=== PATIENT | male | born 1950 | race Caucasian/White ===

== ENCOUNTER 2017-04-30 18:04 | Emergency (ER) | payer BC ==
[2017-04-30 18:14] VITALS: RESP 16; TEMP 98.3
--- NOTE | 2017-04-30 19:35 | ED ---
General Adult HPI - General Chief complaint: Head Injury Stated complaint: HEAD INJURY Time Seen by Provider: 04/30/17 18:59 Source: patient, RN notes reviewed Mode of arrival: wheelchair Limitations: no limitations - History of Present Illness Initial comments: This is a 66-year-old male who presents to the emergency department with chief complaint of head injury. Patient states that prior to arrival he slipped and fell over a curb in a parking lot. He reports it happened so quickly that he is unsure if he hit his head on his car bumper or the cement ground. He denies any loss of consciousness or headache. Denies disorientation or difficulty concentrating. He denies any episodes of vomiting. He does state that he also sustained an abrasion to his right knee as well as his left ear. Denies fever, chills, chest pain, shortness of breath, abdominal pain, nausea or vomiting, constipation or diarrhea, dysuria or hematuria, numbness or tingling, headache or vision changes. - Related Data Home Medications Medication Instructions Recorded Confirmed Aspirin 325 mg PO DAILY 04/07/15 04/30/17 Atorvastatin [Lipitor] 80 mg PO DAILY 04/07/15 04/30/17 Multivitamins, Thera [Multivitamin 1 tab PO DAILY 04/07/15 04/30/17 (formulary)] Omeprazole [PriLOSEC] 10 mg PO DAILY 04/07/15 04/30/17 amLODIPine [Norvasc] 10 mg PO DAILY 04/07/15 04/30/17 glyBURIDE [Diabeta] 5 mg PO AC-BID 04/07/15 04/30/17 Ezetimibe [Zetia] 10 mg PO DAILY 04/30/17 04/30/17 Fenofibrate [Lofibra] 160 mg PO DAILY 04/30/17 04/30/17 metFORMIN HCL 1,000 mg PO BID 04/30/17 04/30/17 Previous Rx's Medication Instructions Recorded Carvedilol [Coreg] 6.25 mg PO BID-W/MEALS #60 tab 04/11/15 Enalapril [Vasotec] 20 mg PO BID #60 tab 04/11/15 Allergies Allergy/AdvReac Type Severity Reaction Status Date / Time losartan potassium Allergy Dyspnea Verified 04/30/17 19:19 [From Jeovanny] Review of Systems ROS Statement: Those systems with pertinent positive or pertinent negative responses have been documented in the HPI. ROS Other: All systems not noted in ROS Statement are negative. Past Medical History Past Medical History: Diabetes Mellitus, GERD/Reflux, Hyperlipidemia, Hypertension, Myocardial Infarction (CA) Last Myocardial Infarction Date:: 2009 History of Any Multi-Drug Resistant Organisms: None Reported Past Surgical History: Coronary Bypass/CABG, Orthopedic Surgery Additional Past Surgical History / Comment(s): 3 VESSEL BYPASS SX 2003, LEFT SHOULDER REPAIR, RIGHT SHOULDER ROTATOR CUFF REPAIR X2 2009, LEFT KNEE CARTILAGE REPAIR 1966, GANGLIAN CYST REMOVED FROM RIGHT WRIST 1994, RIGHT ACHILLES TENDON REPAIR 2006, CLOSED HEAD INJURY ([facility]) WORK RELATED INJURY 1985, Past Anesthesia/Blood Transfusion Reactions: No Reported Reaction Past Psychological History: No Psychological Hx Reported Smoking Status: Never smoker Past Alcohol Use History: Occasional Past Drug Use History: None Reported General Exam - General Exam Comments Initial Comments: General: Awake and alert, well-developed; in no apparent distress. HEENT: Head normocephalic. There is localized swelling over right eyebrow with overlying abrasion. Pupils are equal, round and reactive to light. Extraocular movements intact. Oropharynx moist without erythema or exudate. Neck: Supple. Normal ROM. Cardiovascular: Regular rate and rhythm. No murmurs, rubs or gallops. Chest symmetrical. Respiratory: Lungs clear to auscultation bilaterally. No wheezes, rales or rhonchi. Normal respiratory effort with no use of accessory muscles. Musculoskeletal: Strength 5/5 bilateral upper and lower extremities. Sensation is intact. Pulses 2+ equal and palpable bilaterally. Skin: [place], warm and dry without rashes. Small abrasion right medial forehead superior to eyebrow. Small abrasion on the left ear. Small abrasion on right knee. No active bleeding noted. Neurological: Alert and oriented x3. CN II-XII grossly intact. Speech is fluent and answers are appropriate. No focal neuro deficits. Psychiatric: Normal mood and affect. No overt signs of depression or anxiety noted. Limitations: no limitations Course Vital Signs 04/30/17 18:12 Temperature 98.3 F Pulse Rate 60 Respiratory 16 Rate Blood Pressure 176/79 O2 Sat by Pulse 97 Oximetry Medical Decision Making - Medical Decision Making This is a 66-year-old male who presents to the emergency department with chief complaint of head injury. Patient denies any loss of consciousness or disorientation. He denies headache or episodes of vomiting. Patient sustained a contusion to right medial forehead. On physical examination he is neurovascularly intact. Patient will be discharged home with recommendation to follow-up with his primary care provider within 1-2 days. He is recommended to apply ice to forehead and use Motrin as needed for inflammation and pain. He is in agreement to the plan and voices understanding. All questions were answered. Disposition Clinical Impression: Forehead contusion Disposition: HOME SELF-CARE Condition: Good Instructions: Facial Contusion (ED), Concussion (ED) Additional Instructions: Please follow up with primary care provider within 1-2 days. Return to emergency department if symptoms should worsen or any concerns arise. Referrals: Anamika Cox MD [Primary Care Provider] - 1-2 days Time of Disposition: 19:35
[2017-04-30 19:53] VITALS: BP 170/70; PULSE 59
== END 2017-04-30 19:53 | disposition home or self-care (01) ==
LOC: EC 18:04
DX: S00.83XA Contusion of other part of head, initial encounter (principal); S00.412A Abrasion of left ear, initial encounter; S80.211A Abrasion, right knee, initial encounter; E78.5 Hyperlipidemia, unspecified; I10 Essential (primary) hypertension; E11.9 Type 2 diabetes mellitus without complications; K21.9 Gastro-esophageal reflux disease without esophagitis; I25.2 Old myocardial infarction; Z79.82 Long term (current) use of aspirin; Z79.84 Long term (current) use of oral hypoglycemic drugs; Z79.899 Other long term (current) drug therapy; Z88.8 Allergy status to other drugs, medicaments and biological substances; W18.09XA Striking against other object with subsequent fall, initial encounter; Y92.481 Parking lot as the place of occurrence of the external cause
CPT/HCPCS: 99283

== ENCOUNTER → 2017-07-31 | Outpatient (CLI) | payer BC | END | disposition home or self-care (01) | LOC: LABWHC1 11:08 | PROVIDERS: ATTEND Internal Medicine Cardiovascular Disease | DX: I25.10 Atherosclerotic heart disease of native coronary artery without angina pectoris (principal) | CPT/HCPCS: 36415; 83704 ==

== ENCOUNTER → 2017-12-03 | Outpatient (CLI) | payer BC ==
[2017-12-03 11:09] LABS: ALT 38 U/L (21-72); AST 31 U/L (17-59)
== END | disposition home or self-care (01) ==
LOC: LABWHC1 10:28
PROVIDERS: ATTEND Internal Medicine Cardiovascular Disease
DX: I10 Essential (primary) hypertension (principal)
CPT/HCPCS: 36415; 83704; 84450; 84460

== ENCOUNTER 2018-03-06 07:32 | Day surgery (SDC) | payer MEDICARE, OTHER ==
[2018-03-02 16:11] VITALS: BMI 39.3
[~2018-03-06 07:32] MED LIST: MOXIFLOXACIN HCL 0.5% DROPS 3 ML BTL OP NR; TETRACAINE 0.5% OPHTH (PF) DROPS 4 ML BTL OP NR; TIMOLOL 0.5% OPHTH DROPS 5 ML BTL OP NR; TOBRA-DEXAMET 0.3-0.1% OPHTH DROPS 2.5 ML BTL OPHTHALMIC NR
[2018-03-06 09:09] VITALS: RESP 18; TEMP 97.6
[2018-03-06] MEDS: LACTATED RINGERS 1,000 ML IV SCH ×2 (09:19→09:31)
[2018-03-06] MEDS: PILOCARPINE 2% OPHTH DROPS 15 ML BTL OP NR ×2 (09:21→09:30)
[2018-03-06 09:22] LABS: Glucose,Whole Blood 194 mg/dL (75-99)
[2018-03-06] MEDS ORDERED: CHONDROITIN-SOD HYALURONATE 1 EACH SYRINGE (0.75 ML) INTRAOCULA ONE (09:30)
[2018-03-06] MEDS ORDERED: fentaNYL (PF) 50 MCG/ML 2 ML AMP ONE (09:33)
[2018-03-06] MEDS ORDERED: MIDAZOLAM 2 MG/2 ML VIAL ONE (09:33)
[2018-03-06] MEDS ORDERED: LIDOCAINE 1% INJ 10MG/ML (10 ML MDV) SQ ONE (09:53)
--- NOTE | 2018-03-06 10:00 | P.OP ---
Date of Procedure: 03/06/18 Preoperative Diagnosis: POAG Postoperative Diagnosis: same Procedure(s) Performed: goniotomy Implants: none Anesthesia: MAC Surgeon: Rubin Cardona Estimated Blood Loss (ml): 1 Pathology: none sent Condition: stable Disposition: same day Indications for Procedure: glaucoma Operative Findings: no complication
[2018-03-06 10:24] VITALS: BP 149/84; PULSE 50
--- NOTE | 2018-03-06 13:40 | OP ---
OPERATIVE REPORT DATE OF SURGERY: 06 March 2018. PROCEDURE PERFORMED: Goniotomy of the left eye. PREOPERATIVE DIAGNOSIS: Primary open-angle glaucoma, severe stage, left eye. POSTOPERATIVE DIAGNOSIS: Primary open-angle glaucoma, severe stage, left eye. SURGEON: Dr. Rubin Cardona. ANESTHESIA: Topical. ESTIMATED BLOOD LOSS: Less than 5 mL. SPECIMEN: Taken none. NARRATIVE: After completing the appropriate consent, the patient was brought to the operating room. There he was placed under cardiac monitoring, prepped and draped in the usual sterile manner. He was approached from his left temporal side and at the 3 o'clock position, a 2.5 mm keratome was used to create a self-sealing corneal flap incision. Through this opening 1% Xylocaine MPF 50 50 mix with balanced salt solution was injected into the anterior chamber. This was followed by stabilization of the anterior chamber with Viscoat. The patient was then asked to rotate his head approximately 45 degrees to his right and maintain his gaze in that general direction. A small amount of Viscoat was also placed on the patient's cornea and a gonio prism was used to examine the nasal angle of the eye. The trabecular meshwork was easily identified and a [employer] goniotomy knife was advanced across the anterior chamber and directed into the trabecular meshwork on the nasal side. The knife was then advanced in a counter- clockwise fashion for approximately 5 hours undermining and removing the trabecular meshwork in this area. A mild amount of bleeding was encountered as expected. The goniotomy knife was removed and irrigation/aspiration of the remaining viscoelastic was accomplished without difficulty. The eye was brought to normal intraocular pressure through the temporal incision and the incision was confirmed watertight. He then received 2 drops of 0.5% timolol followed by 2 drops of moxifloxacin as well as 2 drops 2% pilocarpine. He was then lightly patched and shielded in the usual manner. There were no complications from the procedure. He tolerated procedure well and was returned to outpatient recovery in good condition. MMODL / IJN: [id number] /
== END 2018-03-06 11:00 | disposition home or self-care (01) ==
LOC: OR 07:32
PROVIDERS: ATTEND Ophthalmology
DX: E11.39 Type 2 diabetes mellitus with other diabetic ophthalmic complication (principal); H40.1133 Primary open-angle glaucoma, bilateral, severe stage; H42 Glaucoma in diseases classified elsewhere; H02.051 Trichiasis without entropion right upper eyelid; H47.099 Other disorders of optic nerve, not elsewhere classified, unspecified eye; H52.223 Regular astigmatism, bilateral; I25.2 Old myocardial infarction; I10 Essential (primary) hypertension; E78.5 Hyperlipidemia, unspecified; I48.91 Unspecified atrial fibrillation; Z95.1 Presence of aortocoronary bypass graft; Z79.82 Long term (current) use of aspirin; Z79.01 Long term (current) use of anticoagulants; Z79.899 Other long term (current) drug therapy; Z95.810 Presence of automatic (implantable) cardiac defibrillator; Z79.84 Long term (current) use of oral hypoglycemic drugs; Z83.3 Family history of diabetes mellitus; Z82.49 Family history of ischemic heart disease and other diseases of the circulatory system; Z83.511 Family history of glaucoma; Z87.891 Personal history of nicotine dependence; Z97.3 Presence of spectacles and contact lenses; Z96.1 Presence of intraocular lens; Z88.8 Allergy status to other drugs, medicaments and biological substances; Z98.42 Cataract extraction status, left eye; Z98.41 Cataract extraction status, right eye
CPT/HCPCS: 65820; J2250; J3010; J2001

== ENCOUNTER → 2018-04-08 | Outpatient (CLI) | payer MEDICARE, OTHER ==
[2018-04-08 10:18] LABS: Potassium 5.2 mmol/L (3.5-5.1)
[2018-04-08 10:25] LABS: HCT 42.7 % (39.0-53.0); MCHC 32.7 g/dL (31.0-37.0); MCV 91.9 fL (80.0-100.0); Platelet Count 352 k/uL (150-450); RBC 4.65 m/uL (4.30-5.90); RDW 12.7 % (11.5-15.5)
== END ==
LOC: LABPAT 09:05
PROVIDERS: ATTEND Internal Medicine Clinical Cardiac Electrophysiology
DX: Z01.812 Encounter for preprocedural laboratory examination (principal); I48.3 Typical atrial flutter; I25.10 Atherosclerotic heart disease of native coronary artery without angina pectoris
CPT/HCPCS: 36415; 80051; 82565; 82947; 84520; 85027

== ENCOUNTER 2018-04-20 06:17 | Day surgery (SDC) | payer MEDICARE, OTHER ==
[2018-04-14 13:54] VITALS: BMI 34.8
[2018-04-20 06:53] LABS: Glucose,Whole Blood 154 mg/dL (75-99)
[2018-04-20] MEDS ORDERED: ePHEDrine SULFATE/0.9% NACL/PF 50 MG/5 ML SYRINGE IV ONE (07:52)
[2018-04-20] MEDS ORDERED: PROPOFOL 10 MG/ML 20 ML VIAL IV ONE (07:52)
[2018-04-20] MEDS ORDERED: IV FLUID CONTINUATION 1,000 ML IV ONE (07:52)
[2018-04-20] MEDS ORDERED: MIDAZOLAM 2 MG/2 ML VIAL ONE (07:52)
[2018-04-20] MEDS ORDERED: fentaNYL (PF) 50 MCG/ML 2 ML AMP ONE (07:52)
[2018-04-20] MEDS ORDERED: ROCURONIUM BROMIDE 10 MG/ML 10 ML VIAL IV ONE (07:52)
[2018-04-20] MEDS ORDERED: ISOPROTERENOL 250 MCG/1.25 ML SYR IV ONE (07:52)
[2018-04-20] MEDS ORDERED: SUCCINYLCHOLINE CHLORIDE VIAL 200 MG/10 ML VIAL IV ONE (07:52)
[2018-04-20] MEDS ORDERED: ceFAZolin IN SWFI 2 GM/20 ML SYRINGE IVP STA (07:59)
[2018-04-20] MEDS ORDERED: LIDOCAINE 1% INJ 10MG/ML (20 ML MDV) ONE (08:13)
[2018-04-20] MEDS ORDERED: LIDOCAINE 1% INJ 10MG/ML (20 ML MDV) SQ ONE (08:51)
[2018-04-20] MEDS ORDERED: HEPARIN SODIUM (1,000 UNIT/ML) 1,000 UNIT in SODIUM CHLORIDE 0.9% 1,000 ML IRRIGATION ONE (09:00)
[2018-04-20] MEDS: LACTATED RINGERS 1,000 ML IV SCH (12:34)
[2018-04-20] MEDS: SODIUM CHLORIDE 0.9% 1,000 ML IV SCH (12:35)
[2018-04-20] MEDS ORDERED: ACETAMINOPHEN TAB 325 MG TAB PO PRN (13:10)
[2018-04-20] MEDS ORDERED: ACETAMINOPHEN IV (For NPO) 1,000 MG in EMPTY BAG 1 BAG IVPB ONE (13:10)
[2018-04-20] MEDS ORDERED: HYDROcodone/APAP 5-325MG 1 EACH TAB PO PRN (13:10)
[2018-04-20 13:29] LABS: Glucose,Whole Blood 171 mg/dL (75-99)
[2018-04-20 16:21] LABS: Glucose,Whole Blood 130 mg/dL (75-99)
[2018-04-20] MEDS: metFORMIN 500 MG TAB PO SCH (17:34)
[2018-04-20] MEDS: glipiZIDE 10 MG TAB PO SCH (17:37)
[2018-04-20] MEDS: CARVEDILOL 12.5 MG TAB PO SCH (17:37)
[2018-04-20] MEDS: APIXABAN 5 MG TAB PO SCH (17:37)
[2018-04-20] MEDS: DORZOLAMIDE HCL 2% DROPS 10 ML BTL BOTH EYES SCH ×2 (17:38→20:44)
[2018-04-20 20:38] LABS: Glucose,Whole Blood 211 mg/dL (75-99)
[2018-04-20] MEDS: LISINOPRIL 20 MG TAB PO SCH (20:46)
[2018-04-20] MEDS ORDERED: LATANOPROST 0.005% OPHTH DROPS 2.5 ML BTL BOTH EYES SCH (21:00)
--- NOTE | 2018-04-20 21:16 | PCN ---
PROCEDURE NOTE Mr. Stark is a 67-year-old male patient with sustained atrial tachycardia consistent with atrial flutter. He was brought in for atrial flutter mapping ablation and EP study. The patient is brought to the EP lab in a fasting state. Written informed consent was obtained prior to the procedure. His dual-chamber pacemaker was interrogated. The lead impedances were between 450 and 550 prior to the start of the procedure. The device was reprogrammed and rate responsiveness was turned off and the AV delay was increased to 300 milliseconds. At the end of the procedure, rate responsiveness was turned back on. The impedance was rechecked and found to be stable in the mid 400s. Cinefluoroscopy of the leads before and after the procedure showed stable lead positions. IV antibiotics were administered and venous sheaths were placed in the right and left femoral veins. Via these, diagnostic catheters in the high right atrium, coronary sinus, RV, HIS bundle and right atrium and the isthmus were positioned. Intracardiac echocardiography was performed. 3D mapping of the tricuspid anulus and the atrium was performed. The station ridge was identified and the right atrial cavotricuspid isthmus was identified and mapped. Entrainment mapping was performed and the post pacing interval was consistent with cavotricuspid isthmus dependent tachycardia/atrial flutter. 3D Mapping was performed and a counter-clockwise activation on the tricuspid anulus was noted. Tachycardia cycle length was 251 milliseconds, QRS 174 milliseconds. The right bundle branch pattern paced QRS was 181 milliseconds, QT interval 47 milliseconds. The paced [place] interval was 479 milliseconds. The AH interval on Isuprel was 209 milliseconds. Right bundle branch block pattern the HV interval 39 milliseconds. In sinus rhythm, the AV node Wenckebach block rate was 430 milliseconds, VA Wenckebach block 790 milliseconds. In the baseline state, in sinus rhythm, VA Wenckebach block greater than 900 milliseconds. The patient was in atrial tachycardia at the start of the study and mapping ablation catheter was placed after proving a independency of the cava tricuspid isthmus. RF ablation was performed. The line of block was made from the tricuspid anulus to the eustachian ridge. Once the line was complete, the tachycardia terminated. Split potentials were noted along the line. The split potentials were about 144 milliseconds and were uniform all along the line during CS pacing. Differential pacing proved bidirectional block. There were no anatomic gaps left in the line. High-dose Isuprel was used wide open for 5 minutes and no atrial fibrillation. No other arrhythmias induced. Atrial pacing and CS pacing and the lead pacing was performed. No other arrhythmias induced. All catheters were removed. The patient was transferred back to telemetry. Intracardiac echo once again was performed. There was no evidence for pericardial effusion. Patient tolerated the procedure well without any acute complications. He was extubated at this point. RESULT: 1. Diagnostic EP study revealing typical atrial flutter as the mechanism of the tachycardia. 2. Successful mapping and ablation and termination of the tachycardia and demonstration of a complete line of block with split potentials of 144 milliseconds all along the line with CS pacing and evidence of bidirectional block with differential pacing noted. 3. No atrial fibrillation induced with high-dose Isuprel. PLAN: Continue Eliquis 5 mg twice daily. Lower the dose of aspirin to 81 mg p.o. daily. Continue all other cardiac medications. The pacemaker reprogrammed to AAIR to DDDR to avoid RV pacing. MMODL / IJN: [id number] /
[2018-04-20] MEDS: INSULIN ASPART 100 UNIT/ML 1 ML 10 ML VIAL SQ SCH (22:27)
[2018-04-20 23:13] VITALS: RESP 16
[2018-04-21] MEDS: LACTATED RINGERS 1,000 ML IV SCH (01:16)
[2018-04-21] MEDS: SODIUM CHLORIDE 0.9% 1,000 ML IV SCH (01:17)
[2018-04-21] MEDS: metFORMIN 500 MG TAB PO SCH (01:17)
[2018-04-21 06:42] LABS: Glucose,Whole Blood 107 mg/dL (75-99)
[2018-04-21] MEDS: INSULIN ASPART 100 UNIT/ML 1 ML 10 ML VIAL SQ SCH ×2 (06:42→14:53)
[2018-04-21] MEDS: CARVEDILOL 12.5 MG TAB PO SCH (06:43)
[2018-04-21] MEDS: glipiZIDE 10 MG TAB PO SCH (06:59)
[2018-04-21] MEDS ORDERED: PANTOPRAZOLE 40 MG TABLET PO SCH (07:30)
[2018-04-21] MEDS: DORZOLAMIDE HCL 2% DROPS 10 ML BTL BOTH EYES SCH (08:54)
[2018-04-21] MEDS: APIXABAN 5 MG TAB PO SCH (08:54)
[2018-04-21] MEDS: LISINOPRIL 20 MG TAB PO SCH (08:54)
[2018-04-21] MEDS ORDERED: ATORVASTATIN 80 MG TAB PO SCH (09:00)
[2018-04-21] MEDS ORDERED: ASPIRIN 81 MG PO SCH (09:00)
[2018-04-21] MEDS ORDERED: FENOFIBRATE 160 MG TAB PO SCH (09:00)
[2018-04-21] MEDS ORDERED: amLODIPine 10 MG TAB PO SCH (09:00)
[2018-04-21 10:39] VITALS: PULSE 54
[2018-04-21 11:44] LABS: Glucose,Whole Blood 171 mg/dL (75-99)
[2018-04-21] MEDS ORDERED: MULTIVITAMINS, THERA 1 EACH TAB PO SCH (12:00)
[2018-04-21 14:41] VITALS: BP 157/72; TEMP 96.9
--- NOTE | 2018-04-21 15:05 | P.DS ---
Providers Attending physician: Akash Trinidad Primary care physician: [facility] Course: Patient is doing well. He has been ablating the hallways. Currently sitting in a chair. Groins of healed well no hematoma no tenderness or swelling normal heart sounds normal breath sounds no JVD no abnormal swelling nontender abdomen extremities warm no edema Vitals are stable but pressure 146/72 mmHg pulse rate in the 50s Twelve-lead ECG shows atrial paced rhythm with a right bundle branch block pattern Afebrile normal respirations Impression Successful atrial flutter ablation Symptomatic atrial flutter with tiredness and fatigue Plan Continue anticoagulation and follow with Dr. Rico as before may be discharged today Patient Condition at Discharge: Stable Plan - Discharge Summary Discharge Rx Participant: Yes New Discharge Prescriptions: New Aspirin 81 mg PO DAILY #90 chewable Discontinued Aspirin 325 mg PO DAILY No Action Omeprazole [PriLOSEC] 10 mg PO DAILY glyBURIDE [Diabeta] 5 mg PO AC-BID amLODIPine [Norvasc] 10 mg PO DAILY Atorvastatin [Lipitor] 80 mg PO DAILY Multivitamins, Thera [Multivitamin (formulary)] 1 tab PO DAILY Enalapril [Vasotec] 20 mg PO BID #60 tab Fenofibrate [Lofibra] 160 mg PO DAILY metFORMIN HCL 1,000 mg PO BID Latanoprost Ophth [Xalatan 0.005%] 1 drops BOTH EYES HS Carvedilol 25 mg PO BID Brinzolamide [Azopt 1% Ophth Susp] 1 drop BOTH EYES TID Apixaban [Eliquis] 5 mg PO BID Discharge Medication List Atorvastatin [Lipitor] 80 mg PO DAILY 04/07/15 [History] Multivitamins, Thera [Multivitamin (formulary)] 1 tab PO DAILY 04/07/15 [History ] Omeprazole [PriLOSEC] 10 mg PO DAILY 04/07/15 [History] amLODIPine [Norvasc] 10 mg PO DAILY 04/07/15 [History] glyBURIDE [Diabeta] 5 mg PO AC-BID 04/07/15 [History] Enalapril [Vasotec] 20 mg PO BID #60 tab 04/11/15 [Rx] Fenofibrate [Lofibra] 160 mg PO DAILY 04/30/17 [History] metFORMIN HCL 1,000 mg PO BID 11/15/17 [History] Apixaban [Eliquis] 5 mg PO BID 03/02/18 [History] Brinzolamide [Azopt 1% Ophth Susp] 1 drop BOTH EYES TID 03/02/18 [History] Carvedilol 25 mg PO BID 03/02/18 [History] Latanoprost Ophth [Xalatan 0.005%] 1 drops BOTH EYES HS 03/02/18 [History] Aspirin 81 mg PO DAILY #90 chewable 04/20/18 [Rx] Follow up Appointment(s)/Referral(s): Swati Rico MD [STAFF PHYSICIAN] - 05/05/18 3:15 pm (Friday) Patient Instructions/Handouts: Cardiac Ablation (DC) Activity/Diet/Wound Care/Special Instructions: Post EP study - Ablation instructions 1. Keep access sites dry for 2 days. 2. No heavy lifting or straining for 2 days. 3. Avoid bending the hips repeatedly for 2 days. 4. You may go up and down stairs slowly Call if the following is noted 1. Bleeding, increasing swelling or pain at the access sites. 2. Increasing chest discomfort, especially upon taking a deep breath. 3. Increasing shortness of breath, at rest or with exertion. 4. Undue cough / phlegm 5. Difficulty or pain while swallowing. 6. Pain or change in color in the extremities. 7. Fever, chills, rigors. 8. Increasing headache or neurologic symptoms. 9. Dizziness, fainting, palpitations ELIQUIS 5 mg twice daily Aspirin 81 mg daily Continue other cardio myopathy medications Discharge Disposition: HOME SELF-CARE
== END 2018-04-21 15:20 | disposition home or self-care (01) ==
LOC: CATHEP 06:17 → 3SCARD 10:56 → CATHEP 04-21 15:20
PROVIDERS: ATTEND Internal Medicine Clinical Cardiac Electrophysiology
DX: I48.3 Typical atrial flutter (principal); Z45.018 Encounter for adjustment and management of other part of cardiac pacemaker; I45.10 Unspecified right bundle-branch block; I47.1 Supraventricular tachycardia; I25.119 Atherosclerotic heart disease of native coronary artery with unspecified angina pectoris; Z95.1 Presence of aortocoronary bypass graft; R00.1 Bradycardia, unspecified; I11.0 Hypertensive heart disease with heart failure; I50.9 Heart failure, unspecified; E11.9 Type 2 diabetes mellitus without complications; E78.2 Mixed hyperlipidemia; I42.9 Cardiomyopathy, unspecified; I48.91 Unspecified atrial fibrillation; H40.9 Unspecified glaucoma; K21.9 Gastro-esophageal reflux disease without esophagitis; Z79.01 Long term (current) use of anticoagulants; Z79.84 Long term (current) use of oral hypoglycemic drugs; Z79.82 Long term (current) use of aspirin; Z79.899 Other long term (current) drug therapy; Z88.8 Allergy status to other drugs, medicaments and biological substances; Z72.0 Tobacco use; Z82.49 Family history of ischemic heart disease and other diseases of the circulatory system
CPT/HCPCS: 93623; 93662; 93613; 93653; C1894; C1769 ×3; C1730; C1759; C1893; C1732; J2250; J0330; J2001; J3010; J1644; J0131; J2704; J0690

== ENCOUNTER → 2018-07-28 | Outpatient (CLI) | payer MEDICARE, OTHER ==
[2018-07-28 16:45] LABS: Blood Urea Nitrogen 30 mg/dL (9-20)
--- NOTE | 2018-07-29 07:12 | CT ---
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 100 mL Isovue -300 IV contrast was administered. Coronal and sagittal reconstructions performed. CT DLP: 2197.6 mGycm Automated exposure control for dose reduction was used. FINDINGS: There is no evidence of acute intracranial hemorrhage, acute ischemic changes, mass, mass-effect, or extra-axial fluid collection. There is no effacement of cerebral sulci or basal subarachnoid cister ns. There is no hydrocephalus. There is no midline shift. Bhatt-white matter distinction is preserv ed. Complete opacification of the bilateral maxillary sinuses, moderate within the left sphenoid sinus, a nd moderate to severe within the bilateral ethmoid air cells. Extensive bifrontal encephalomalacia inferiorly and also along the left greater than right anterior p oles of the temporal lobes. After IV contrast administration. The dural venous sinuses appear patent. The left transverse sinus i s slightly hypoplastic compared to the right side. No enhancing intracranial lesions are identified. Temporal bones reported separately. Orbits and globes appear intact. IMPRESSION: 1. No acute intracranial abnormality seen. No abnormal intracranial enhancement seen. 2. Extensive inferior bifrontal encephalomalacia and to a lesser extent along the anterior tips of th e temporal lobes. Findings suggest chronic posttraumatic encephalomalacia. Correlate for trauma histo ry in this patient. 3. Severe chronic maxillary sinusitis and anterior ethmoid sinusitis. Moderate chronic left sphenoid sinusitis.
--- NOTE | 2018-07-29 07:18 | CT ---
EXAMINATION TYPE: CT iac wo con DATE OF EXAM: 07/28/2018 COMPARISON: None HISTORY: 67-year-old male hearing loss to left ear CT DLP: 150 mGycm Automated exposure control for dose reduction was used. TECHNIQUE: Contiguous high-resolution axial scanning of the temporal bones performed without IV cont rast. Coronal reformatted images obtained. FINDINGS: Brain reported separately on CT performed same day. By CT, there is no cerebellopontine angle mass identified. The skull base appears normal. The external auditory canals are patent. The middle ear cavities and mastoid air cells are well pneumatized. There is no abnormality of the middle ear ossicles. The round and oval windows are normal. There is no abnormality of bony labyrinths. No dehiscence of the superior semicircular canals. Asymme trically larger right jugular bulb likely normal variation. No abnormal enlargement of the vestibular aqueducts. The facial nerve canal is normal bilaterally. The internal auditory canal and meati are symmetrical bilaterally. There is no evidence of fractures. In addition to the complete opacification of the bilateral maxillary sinuses described on CT brain re port as and the moderate to severe mucosal thickening anterior ethmoid air cells and moderate within the left sphenoid sinus, there is rightward nasal septal deviation and opacified left-sided anjel bu llosa. Reformatted images confirm above findings. IMPRESSION: 1. Chronic severe bilateral maxillary sinusitis and moderate to severe bilateral anterior ethmoid sin us disease. Moderate mucosal thickening left sphenoid sinus and opacified left anjel bullosa. Rightw azul nasal septal deviation. 2. No specific abnormality identified of the temporal bones.
== END | disposition home or self-care (01) ==
LOC: RADCTMAIN 16:08
PROVIDERS: ATTEND Otolaryngology
DX: G93.89 Other specified disorders of brain (principal); J32.4 Chronic pansinusitis; J34.2 Deviated nasal septum; H93.12 Tinnitus, left ear; H93.3X2 Disorders of left acoustic nerve; H90.42 Sensorineural hearing loss, unilateral, left ear, with unrestricted hearing on the contralateral side
CPT/HCPCS: 82565; 84520; 70470; 70480; 36415; Q9967

== ENCOUNTER 2018-09-29 23:50 | Emergency (ER) | payer MEDICARE, OTHER ==
[2018-09-30] MEDS ORDERED: HYDROmorphone 0.5 MG/0.5 ML SYRINGE IVP STA (00:11)
[2018-09-30] MEDS ORDERED: ONDANSETRON 4 MG/2 ML VIAL IVP STA ×2 (00:11→01:31)
[2018-09-30 00:39] LABS: Basophils % (A) 0 %; Eosinophils # (A) 0.2 k/uL (0-0.7); Eosinophils % (A) 1 %; HCT 41.5 % (39.0-53.0); HGB 13.9 gm/dL (13.0-17.5); Lymphocytes # (A) 1.4 k/uL (1.0-4.8); Lymphocytes % (A) 9 %; MCH 29.7 pg (25.0-35.0); MCHC 33.6 g/dL (31.0-37.0); MCV 88.4 fL (80.0-100.0); Mean Platelet Volume 6.9; Monocytes # (A) 0.6 k/uL (0-1.0); Monocytes % (A) 4 %; Neutrophils # (A) 13.2 k/uL (1.3-7.7); Neutrophils % (A) 85 %; Platelet Count 345 k/uL (150-450); RBC 4.69 m/uL (4.30-5.90); RDW 12.5 % (11.5-15.5); WBC 15.6 k/uL (3.8-10.6)
[2018-09-30 00:45] LABS: Appearance,Urine Clear (Clear); Bilirubin,Urine Negative (Negative); Blood,Urine Moderate (Negative); Color,Urine Light Yellow; Glucose,Urine (UA) 3+ (Negative); Ketones,Urine Negative (Negative); Leukocyte Esterase,Urine Small (Negative); Mucus,Urine Rare /hpf; Nitrite,Urine Negative (Negative); PH, Urine 6.5 (5.0-8.0); Protein,Urine 1+ (Negative); RBC,Urine 134 /hpf (0-5); Specific Gravity,Urine 1.013 (1.001-1.035); Squamous Epithelial Cell,Urine <1 /hpf (0-4); Urobilinogen,Urine <2.0 mg/dL (<2.0); WBC,Urine 9 /hpf (0-5)
[2018-09-30 00:46] LABS: Albumin 4.6 g/dL (3.5-5.0); Calcium 10.5 mg/dL (8.4-10.2); Total Bilirubin 0.6 mg/dL (0.2-1.3); Total Protein 7.4 g/dL (6.3-8.2)
--- NOTE | 2018-09-30 01:16 | CT ---
EXAM: CT Abdomen and Pelvis Without Intravenous Contrast CLINICAL HISTORY: abdominal pain TECHNIQUE: Axial computed tomography images of the abdomen and pelvis without intravenous contrast. CTDI is 0.242, 0.242, 23.2 mGy and DLP is 1486 mGy- cm. This CT exam was performed using one or more of the following dose reduction techniques: automated exposure control, adjustment of the mA and/or kV according to patient size, and/or use of iterative reconstruction technique. COMPARISON: No relevant prior studies available. FINDINGS: Lung bases: Unremarkable. No mass. No consolidation. Mediastinum: Postoperative mediastinum. Small hiatal hernia. ABDOMEN: Liver: Unremarkable. Gallbladder and bile ducts: Unremarkable. No calcified stones. Pancreas: Unremarkable. Spleen: Unremarkable. Adrenals: Unremarkable. Kidneys and ureters: 4 mm mid left ureteral calculus. Mild left hydroureteronephrosis and perinephric stranding. Indeterminate 2.8 cm right parapelvic renal lesion. Mild nonspecific bilateral perinephric stranding. Stomach and bowel: Unremarkable. Bowel is nondilated. PELVIS: Appendix: No findings to suggest acute appendicitis. Bladder: Unremarkable. No stones. Reproductive: Unremarkable as visualized. ABDOMEN and PELVIS: Intraperitoneal space: Unremarkable. No free air. Bones/joints: No acute osseous abnormality. Osteopenia. Degenerative changes of the spine. Soft tissues: Diastases of the rectus musculature. Small bilateral fat-containing inguinal hernias. Vasculature: Process of the abdominal aorta. No abdominal aortic aneurysm. Lymph nodes: Unremarkable. IMPRESSION: 1. There is a 4 mm mid left ureteral calculus. Mild left hydroureteronephrosis and perinephric stranding. 2. Indeterminate 2.8 cm right parapelvic renal lesion may be neoplastic. Nonemergent multiphase CT or MRI may be considered for further characterization, if prior imaging is unavailable for comparison.
[2018-09-30] MEDS ORDERED: TAMSULOSIN 0.4 MG CAP.ER.24H PO STA (01:23)
[2018-09-30] MEDS ORDERED: HYDROcodone/APAP 5-325MG 1 EACH TAB PO STA (01:31)
[2018-09-30] MEDS ORDERED: ACET/COD 300 MG/30 MG STARTER PACK 6 TAB BTL PO STA (01:31)
[2018-09-30] MEDS ORDERED: ONDANSETRON 4 MG ODT STARTER PACK 2 TAB BTL PO STA (01:32)
--- NOTE | 2018-09-30 01:35 | ED ---
Abdominal Pain HPI - General Chief Complaint: Abdominal Pain Stated Complaint: Nausea Back Pain Time Seen by Provider: 09/30/18 00:05 Source: patient Mode of arrival: ambulatory Limitations: no limitations - History of Present Illness Initial Comments: 68-year-old male patient presents to the emergency department today for evaluation of left flank pain. Patient states this started earlier this evening. Patient states he is also experiencing nausea with this but has not vomited. Patient states the pain is an aching pain. Denies any radiation of th e pain to his abdomen. States he has been having some urinary retention but denies any hematuria or dysuria. States that he was dark in color. Denies fever or chills. Denies any history of similar symptoms. Patient denies any recent rash, cough, shortness breath, chest pain, diarrhea, constipation, back pain, numbness, tingling, dizziness, weakness, headache, visual changes, or any other complaints. - Related Data Home Medications Medication Instructions Recorded Confirmed Atorvastatin [Lipitor] 80 mg PO DAILY 04/07/15 09/29/18 Multivitamins, Thera [Multivitamin 1 tab PO DAILY 04/07/15 09/29/18 (formulary)] Omeprazole [PriLOSEC] 10 mg PO DAILY 04/07/15 09/29/18 amLODIPine [Norvasc] 10 mg PO DAILY 04/07/15 09/29/18 glyBURIDE [Diabeta] 5 mg PO AC-BID 04/07/15 09/29/18 Fenofibrate [Lofibra] 160 mg PO DAILY 04/30/17 09/29/18 metFORMIN HCL 1,000 mg PO BID 04/30/17 09/29/18 Apixaban [Eliquis] 5 mg PO BID 03/02/18 09/29/18 Brinzolamide [Azopt 1% Ophth Susp] 1 drop BOTH EYES TID 03/02/18 09/29/18 Carvedilol 25 mg PO BID 03/02/18 09/29/18 Latanoprost Ophth [Xalatan 0.005%] 1 drops BOTH EYES HS 03/02/18 09/29/18 Previous Rx's Medication Instructions Recorded Enalapril [Vasotec] 20 mg PO BID #60 tab 04/11/15 Aspirin 81 mg PO DAILY #90 chewable 04/20/18 Hydrocodone/Acetaminophen [[place] 1 tab PO Q6HR PRN #12 tab 09/30/18 5-325] Ondansetron [Zofran ODT] 4 mg PO Q8HR PRN #10 tab 09/30/18 Tamsulosin HCl [Flomax] 0.4 mg PO DAILY #7 cap 09/30/18 Allergies Allergy/AdvReac Type Severity Reaction Status Date / Time losartan potassium Allergy Dyspnea Verified 04/14/18 13:10 [From Jeovanny] Review of Systems ROS Statement: Those systems with pertinent positive or pertinent negative responses have been documented in the HPI. ROS Other: All systems not noted in ROS Statement are negative. Past Medical History Past Medical History: Atrial Fibrillation, Diabetes Mellitus, Eye Disorder, GERD/Reflux, Hyperlipidemia, Hypertension, Myocardial Infarction (NM) Additional Past Medical History / Comment(s): jessica. glaucoma Last Myocardial Infarction Date:: 2009 History of Any Multi-Drug Resistant Organisms: None Reported Past Surgical History: Coronary Bypass/CABG, Orthopedic Surgery Additional Past Surgical History / Comment(s): 3 VESSEL BYPASS SX 2003, LEFT SHOULDER REPAIR, RIGHT SHOULDER ROTATOR CUFF REPAIR X2 2009, LEFT KNEE CARTILAGE REPAIR 1966, GANGLIAN CYST REMOVED FROM RIGHT WRIST 1994, RIGHT ACHILLES TENDON REPAIR 2006, CLOSED HEAD INJURY ([facility]) WORK RELATED INJURY 1985, jessica cataract surgery Past Anesthesia/Blood Transfusion Reactions: No Reported Reaction Type of Cardiac Device: Permanent Pacemaker, AICD Device Placement Date:: 2015 Past Psychological History: No Psychological Hx Reported Smoking Status: Never smoker Past Alcohol Use History: Occasional Past Drug Use History: None Reported - Past Family History Mother Family Medical History: Cancer Father Family Medical History: Coronary Artery Disease (CAD) General Exam Limitations: no limitations General appearance: alert, in no apparent distress, other (Physical well- developed, well-nourished adult male patient in no acute distress. Vital signs upon presentation are temperature 98.6F, pulse 60, respirations 20, blood pressure 203/75, pulse ox 98% on room air.) Eye exam: Present: normal appearance, PERRL, EOMI. Absent: scleral icterus, conjunctival injection, periorbital swelling ENT exam: Present: normal exam, normal oropharynx, mucous membranes moist Respiratory exam: Present: normal lung sounds bilaterally. Absent: respiratory distress, wheezes, rales, rhonchi, stridor Cardiovascular Exam: Present: regular rate, normal rhythm, normal heart sounds. Absent: systolic murmur, diastolic murmur, rubs, gallop, clicks GI/Abdominal exam: Present: soft, normal bowel sounds. Absent: distended, tenderness, guarding, rebound, rigid Back exam: Present: normal inspection. Absent: CVA tenderness (R), CVA tenderness (L) Neurological exam: Present: alert, oriented X3, CN II-XII intact Psychiatric exam: Present: normal affect, normal mood Skin exam: Present: warm, dry, intact, normal color. Absent: rash Course Vital Signs 09/29/18 09/30/18 23:53 01:14 Temperature 98.6 F Pulse Rate 60 55 L Respiratory 20 16 Rate Blood Pressure 203/75 188/89 O2 Sat by Pulse 98 95 Oximetry Medical Decision Making - Medical Decision Making 68-year-old male patient presents to the emergency department today for evaluation of left flank pain and decreased urine output. Physical examination did reveal a soft nontender abdomen. There is no CVA tenderness. He is afebrile. Labs reviewed and did reveal presence of blood in the urine, mild leukocyte esterase, no bacteria in the urine minimal white blood cells. This was sent for culture. CT of the abdomen and pelvis did reveal a 4 mm left mid ureteral calculus consistent with patient's history. We will treat patient with Flomax, pain medication, nausea medication. He is instructed to follow-up with the urologist, he was informed of the 2 cm lesion on the right kidney and instructed to have further evaluation of this in by his primary care physician or the urologist. He is instructed to follow-up with urologist for recheck in 1-2 days. Return parameters discussed in detail. He verbalizes understanding and agrees with this plan. - Lab Data Result diagrams: 09/30/18 00:20 09/30/18 00:20 Lab Results 09/30/18 09/30/18 09/30/18 Range/Units 00:15 00:20 00:20 WBC 15.6 H (3.8-10.6) k/uL RBC 4.69 (4.30-5.90) m/uL Hgb 13.9 (13.0-17.5) gm/dL Hct 41.5 (39.0-53.0) % MCV 88.4 (80.0-100.0) fL MCH 29.7 (25.0-35.0) pg MCHC 33.6 (31.0-37.0) g/dL RDW 12.5 (11.5-15.5) % Plt Count 345 (150-450) k/uL Neutrophils % 85 % Lymphocytes % 9 % Monocytes % 4 % Eosinophils % 1 % Basophils % 0 % Neutrophils # 13.2 H (1.3-7.7) k/uL Lymphocytes # 1.4 (1.0-4.8) k/uL Monocytes # 0.6 (0-1.0) k/uL Eosinophils # 0.2 (0-0.7) k/uL Basophils # 0.0 (0-0.2) k/uL Sodium 138 (137-145) mmol/L Potassium 5.0 (3.5-5.1) mmol/L Chloride 104 (98-107) mmol/L Carbon Dioxide 21 L (22-30) mmol/L Anion Gap 13 mmol/L BUN 28 H (9-20) mg/dL Creatinine 1.24 (0.66-1.25) mg/dL Est GFR (CKD-EPI)AfAm 69 (>60 ml/min/1.73 sqM) Est GFR (CKD-EPI)NonAf 60 (>60 ml/min/1.73 sqM) Glucose 223 H (74-99) mg/dL Calcium 10.5 H (8.4-10.2) mg/dL Total Bilirubin 0.6 (0.2-1.3) mg/dL AST 26 (17-59) U/L ALT 32 (21-72) U/L Alkaline Phosphatase 84 (38-126) U/L Total Protein 7.4 (6.3-8.2) g/dL Albumin 4.6 (3.5-5.0) g/dL Amylase 38 (30-110) U/L Lipase 76 (23-300) U/L Urine Color Light Yellow Urine Appearance Clear (Clear) Urine pH 6.5 (5.0-8.0) Ur Specific [place] 1.013 (1.001-1.035) Urine Protein 1+ H (Negative) Urine Glucose (UA) 3+ H (Negative) Urine Ketones Negative (Negative) Urine Blood Moderate H (Negative) Urine Nitrite Negative (Negative) Urine Bilirubin Negative (Negative) Urine Urobilinogen <2.0 (<2.0) mg/dL Ur Leukocyte Esterase Small H (Negative) Urine RBC 134 H (0-5) /hpf Urine WBC 9 H (0-5) /hpf Ur Squamous Epith Cells <1 (0-4) /hpf Urine Mucus Rare H (None) /hpf - Radiology Data Radiology results: report reviewed, image reviewed CT of the abdomen and pelvis is obtained. Report was reviewed in its entirety. Impression by Dr. Scruggs shows 4 mm mid left ureteral calculus. Mild left hydroureteronephrosis and perinephric stranding. Indeterminate 2.8 cm right parapelvic renal lesion may be neoplastic. Nonemergent multiphase CT or MRI may be considered for further characterization. Disposition Clinical Impression: Kidney stone on left side, Lesion of right [place] kidney Disposition: HOME SELF-CARE Condition: Good Instructions (If sedation given, give patient instructions): Kidney Stones (ED), How to Strain Your Urine (ED) Additional Instructions: Increase fluids, especially clear liquids. Take medications as directed. Follow-up with urologist for recheck as soon as possible. Inform your primary care physician or the urologist that you have a lesion on your right kidney that warrants further evaluation. Return to the emergency department immediately for any new, worsening, or concerning symptoms. Prescriptions: Tamsulosin HCl [Flomax] 0.4 mg PO DAILY #7 cap Hydrocodone/Acetaminophen [[place] 5-325] 1 tab PO Q6HR PRN #12 tab PRN Reason: Pain Ondansetron [Zofran ODT] 4 mg PO Q8HR PRN #10 tab PRN Reason: Nausea Is patient prescribed a controlled substance at d/c from ED?: Yes When asked, does pt state using other controlled substances?: No If prescribed controlled substance>3 days was MAPS reviewed?: Prescribed <3 Days If opioid is for acute pain is fill amount 7 days or less?: No If Rx opioid, was Start Talking consent form obtained?: Yes Referrals: Anamika Cox MD [Primary Care Provider] - 1-2 days Willard Guzman MD [STAFF PHYSICIAN] - 1-2 days Time of Disposition: 01:35
[2018-09-30] MEDS ORDERED: ENALAPRILAT 1.25 MG/ML 1 ML VIAL IVP STA (02:06)
[2018-09-30 02:32] VITALS: BP 191/79; PULSE 50; RESP 20; TEMP 98.1
== END 2018-09-30 02:36 ==
LOC: EC 23:50
DX: N20.2 Calculus of kidney with calculus of ureter (principal); N28.9 Disorder of kidney and ureter, unspecified; I48.91 Unspecified atrial fibrillation; E11.9 Type 2 diabetes mellitus without complications; H40.9 Unspecified glaucoma; K21.9 Gastro-esophageal reflux disease without esophagitis; E78.5 Hyperlipidemia, unspecified; I10 Essential (primary) hypertension; I25.2 Old myocardial infarction; Z95.1 Presence of aortocoronary bypass graft; Z95.810 Presence of automatic (implantable) cardiac defibrillator; Z79.84 Long term (current) use of oral hypoglycemic drugs; Z79.01 Long term (current) use of anticoagulants; Z79.899 Other long term (current) drug therapy; Z88.8 Allergy status to other drugs, medicaments and biological substances
CPT/HCPCS: 36415; 80053; 82150; 83690; 85025; 81001; 74176; 99284; 96374; 96375 ×2; 96376; J2405; S0119; J1170

== ENCOUNTER → 2018-10-14 | Outpatient (CLI) | payer MEDICARE, OTHER ==
--- NOTE | 2018-10-14 09:58 | XR ---
EXAMINATION TYPE: XR KUB DATE OF EXAM: 10/14/2018 9:43 AM CLINICAL HISTORY: Left ureter calculus TECHNIQUE: Two supine KUB images of the abdomen are obtained. COMPARISON: CT abdomen and pelvis September 30, 2018. FINDINGS: The known mid 3-4 mm left ureter calculus on CT at roughly the mid L5 level is not clearly seen on plain films. Colonic fecal material is present as well as fairly prominent body habitus along with small sized calculus make visualization difficult. Ovoid density projecting superior to pubic symphysis is of uncertain etiology. Pelvic vascular calcif ication extending into bilateral groin region is seen. There is overall nonobstructive bowel gas pattern. There is mild narrowing and sclerosis bilateral sa croiliac joints. There is [id number] narrowing in both hip joints. There is mild/moderate multi level narrowing in the visualized spine. IMPRESSION: As above.
== END | disposition home or self-care (01) ==
LOC: RADXRMAIN 09:28
PROVIDERS: ATTEND Urology
DX: N20.1 Calculus of ureter (principal)
CPT/HCPCS: 74018

== ENCOUNTER → 2018-10-27 | Outpatient (CLI) | payer MEDICARE, OTHER ==
[2018-10-27 07:40] LABS: Blood Urea Nitrogen 26 mg/dL (9-20)
--- NOTE | 2018-10-27 10:01 | CT ---
EXAMINATION TYPE: CT abdomen pelvis wo/w con DATE OF EXAM: 10/27/2018 COMPARISON: 09/30/2018 HISTORY: 68-year-old male Right renal mass and left urethral stone TECHNIQUE: Contiguous axial scanning of the abdomen and pelvis before and after administration of 100 ml Isovue 300 IV contrast. Delayed images through the kidneys and coronal/sagittal reconstructions performed. CT DLP: 5702.4 mGycm Automated exposure control for dose reduction was used. FINDINGS: Median sternotomy wires. Retained epicardial pacer leads. Additional right ventricular pacer lead. He art upper limits of normal in size without pericardial effusion. Lung bases clear without pleural eff usion. Tiny hiatal hernia. No focal liver lesion or biliary ductal dilatation. Portal venous system is patent. Gallbladder, adrenal glands, left kidney, spleen, and pancreas appear within normal limits. Interval resolution of the previous left hydronephrosis and previous mid ureteral calculus. Redemonstrated lobulated heterogeneously enhancing mass within the mid to lower pole of the right kid neel located centrally extending to the renal sinus fat. This measures up to 3.7 cm and is hypervascul ar. Moderate atherosclerotic calcifications abdominal aorta and iliac arteries without aneurysm. No dilated small bowel, free fluid, or free air. Mild overall stool burden. Normal appendix. Sigmoid diverticulosis. No pericolonic inflammatory change. Bladder urine distended. Prostate gland measures 5.3 cm wide. No abnormal fluid collection in the pel vis or pelvic lymphadenopathy. Patulous bilateral inguinal canals. Bones: Degenerative changes of the hips. Degenerative changes left SI joint and mid to lower lumbar s pine. Baastrup's disease. IMPRESSION: 1. SUSPICIOUS SOLID ENHANCING MASS WITHIN THE CENTRAL MID TO LOWER POLE OF THE RIGHT KIDNEY EXTENDING INTO THE RENAL SINUS FAT MEASURING 3.7 CM. FINDINGS HIGHLY SUGGESTIVE OF RCC. FURTHER APPROPRIATE WO RKUP AND MANAGEMENT RECOMMENDED. 2. INTERVAL PASSAGE OF THE PREVIOUS LEFT MID URETERAL CALCULUS AND RESOLUTION OF THE PREVIOUS LEFT HY DRONEPHROSIS. 3. SIGMOID DIVERTICULOSIS WITHOUT ACUTE DIVERTICULITIS. 4. MILD PROSTATOMEGALY (5.3 CM WIDE).
== END | disposition home or self-care (01) ==
LOC: RADCTMAIN 07:01
PROVIDERS: ATTEND Urology
DX: K57.30 Diverticulosis of large intestine without perforation or abscess without bleeding (principal); N40.0 Benign prostatic hyperplasia without lower urinary tract symptoms; D41.01 Neoplasm of uncertain behavior of right kidney; N20.1 Calculus of ureter; Z88.8 Allergy status to other drugs, medicaments and biological substances
CPT/HCPCS: 82565; 84520; 74178; 36415; Q9967 ×2

== ENCOUNTER → 2018-11-03 | Outpatient (CLI) | payer MEDICARE, OTHER ==
[2018-11-03 08:01] LABS: Basophils % (A) 1 %; Eosinophils # (A) 0.2 k/uL (0-0.7); Eosinophils % (A) 3 %; HCT 39.1 % (39.0-53.0); HGB 12.6 gm/dL (13.0-17.5); Lymphocytes # (A) 1.8 k/uL (1.0-4.8); Lymphocytes % (A) 32 %; MCH 28.7 pg (25.0-35.0); MCHC 32.1 g/dL (31.0-37.0); MCV 89.2 fL (80.0-100.0); Mean Platelet Volume 6.9; Monocytes # (A) 0.3 k/uL (0-1.0); Monocytes % (A) 5 %; Neutrophils # (A) 3.2 k/uL (1.3-7.7); Neutrophils % (A) 57 %; Platelet Count 266 k/uL (150-450); RBC 4.38 m/uL (4.30-5.90); RDW 13.3 % (11.5-15.5); WBC 5.6 k/uL (3.8-10.6)
[2018-11-03 08:29] LABS: Appearance,Urine Clear (Clear); Bilirubin,Urine Negative (Negative); Blood,Urine Negative (Negative); Color,Urine Yellow; Glucose,Urine (UA) Negative (Negative); Ketones,Urine Negative (Negative); Leukocyte Esterase,Urine Small (Negative); Mucus,Urine Rare /hpf; Nitrite,Urine Negative (Negative); PH, Urine 5.5 (5.0-8.0); Protein,Urine Negative (Negative); Specific Gravity,Urine 1.019 (1.001-1.035); Squamous Epithelial Cell,Urine <1 /hpf (0-4); Urobilinogen,Urine <2.0 mg/dL (<2.0); WBC,Urine 3 /hpf (0-5)
[2018-11-03 11:50] LABS: Albumin 4.2 g/dL (3.80-4.90); Albumin/Globulin Ratio 2.1 (1.60-3.17); Anion Gap 5.8 mmol/L (4.00-12.00); Calcium 9.4 mg/dL (8.7-10.3); Carbon Dioxide 27.2 mmol/L (21.6-31.8); LDL Cholesterol,Calculated 86.8 mg/dL (0.0-131.0); Potassium 4.7 mmol/L (3.5-5.5); Total Bilirubin 0.5 mg/dL (0.2-1.2); Total Protein 6.2 g/dL (6.2-8.2); VLDL Calculation 49.2 mg/dL (5.00-40.00)
[2018-11-03 14:38] LABS: Hemoglobin A1C 8.5 % (4.0-6.0)
== END | disposition home or self-care (01) ==
LOC: LABWHC1 06:52
PROVIDERS: ATTEND Hospitalist
DX: E78.5 Hyperlipidemia, unspecified (principal); E11.9 Type 2 diabetes mellitus without complications; I10 Essential (primary) hypertension; N52.9 Male erectile dysfunction, unspecified
CPT/HCPCS: 36415; 80053; 80061; 81001; 82550; 83036; 84402; 84403; 84443; 85025

== ENCOUNTER → 2018-11-11 | Outpatient (CLI) | payer MEDICARE, OTHER ==
[2018-11-11 10:03] LABS: Appearance,Urine Clear (Clear); Bilirubin,Urine Negative (Negative); Blood,Urine Negative (Negative); Color,Urine Yellow; Glucose,Urine (UA) 3+ (Negative); Ketones,Urine Negative (Negative); Leukocyte Esterase,Urine Negative (Negative); Nitrite,Urine Negative (Negative); PH, Urine 5.5 (5.0-8.0); Protein,Urine Negative (Negative); Specific Gravity,Urine 1.017 (1.001-1.035); Urobilinogen,Urine <2.0 mg/dL (<2.0)
[2018-11-11 10:05] LABS: Basophils % (A) 1 %; Eosinophils # (A) 0.2 k/uL (0-0.7); Eosinophils % (A) 3 %; HCT 39.3 % (39.0-53.0); HGB 13.1 gm/dL (13.0-17.5); Lymphocytes # (A) 1.7 k/uL (1.0-4.8); Lymphocytes % (A) 29 %; MCH 29.3 pg (25.0-35.0); MCHC 33.3 g/dL (31.0-37.0); MCV 88.1 fL (80.0-100.0); Mean Platelet Volume 6.9; Monocytes # (A) 0.4 k/uL (0-1.0); Monocytes % (A) 6 %; Neutrophils # (A) 3.5 k/uL (1.3-7.7); Neutrophils % (A) 61 %; Platelet Count 305 k/uL (150-450); RBC 4.46 m/uL (4.30-5.90); RDW 13.2 % (11.5-15.5); WBC 5.8 k/uL (3.8-10.6)
[2018-11-11 10:19] LABS: Albumin 4.2 g/dL (3.5-5.0); Calcium 9.7 mg/dL (8.4-10.2); Potassium 4.4 mmol/L (3.5-5.1); Total Bilirubin 0.5 mg/dL (0.2-1.3); Total Protein 6.7 g/dL (6.3-8.2)
--- NOTE | 2018-11-11 10:51 | XR ---
EXAMINATION TYPE: XR chest 2V DATE OF EXAM: 11/11/2018 COMPARISON: NONE HISTORY: Shortness of breath TECHNIQUE: Frontal and lateral views of the chest are obtained. FINDINGS: Scattered senescent parenchymal changes noted. No evidence for infiltrate. No evidence for atelectasis. Heart size is stable. Mediastinal structures are stable and grossly unremarkable. No evidence for hilar prominence. Degenerative changes dorsal spine. IMPRESSION: 1. No evidence for acute pulmonary disease.
== END | disposition home or self-care (01) ==
LOC: LABWHC1 09:27
PROVIDERS: ATTEND Urology
DX: N39.0 Urinary tract infection, site not specified (principal); Z01.818 Encounter for other preprocedural examination; C64.1 Malignant neoplasm of right kidney, except renal pelvis; E11.9 Type 2 diabetes mellitus without complications
CPT/HCPCS: 36415; 71046; 80053; 81003; 85025; 86850; 86900; 86901; 87086

== ENCOUNTER 2018-11-18 08:06 | Inpatient (IN) | payer MEDICARE, OTHER ==
[2018-11-13 10:05] VITALS: BMI 38.0
--- NOTE | 2018-11-17 17:52 | CONS ---
CONSULTATION This patient is undergoing surgery tomorrow by Dr. Guzman. Mr. Suazo is a 68-year-old gentleman who was seen for preop cardiac evaluation. This patient has a known history of stable coronary artery disease with a prior history of coronary artery bypass surgery done in is 2003, history of tachy-jackson syndrome, permanent pacemaker, and history of atrial fibrillation. The patient recently underwent ablation for atrial fibrillation in 2018 and has been doing fairly well and is being maintained in the normal sinus rhythm. The patient has remained stable cardiac-zimmerman. He denies any history of exertional angina. He is functionally active. He can climb the flight of stairs. Denies any history of orthopnea, PND, dizziness, lightheadedness or syncope. His EKG was done which shows normal sinus rhythm with a first-degree AV block or atrial sinus rhythm with a ventricular capture. Echocardiogram reveals overall normal left ventricular systolic function. Patient underwent Lexiscan Cardiolite study which does not show any evidence of ( ) ischemia. In view of that, the patient is considered an acceptable but increased risk of surgery. HOME MEDICATIONS: Include baby aspirin once a day, Coreg 25 mg b.i.d., Eliquis 5 mg b.i.d., enalapril 20 mg twice a day, Glucophage, glyburide, Lipitor and Norvasc 10 mg daily. PHYSICAL EXAMINATION: At present reveals a 68-year-old ( ) built gentleman who does not appear to be in any acute distress. Blood pressure is 132/70 mmHg. HEENT examination is negative. Neck is supple. There is no increase in jugular venous pressure. Both the carotid pulses are felt, there is no bruit. Chest is symmetrical. Heart: The PMI is not felt. First and second heart sounds are normal. There is no evidence of any murmur. Lungs are clinically clear to auscultation and percussion. Abdomen is soft. Extremities: Peripheral pulses are 2+. EKG showed atrial paced normal sinus rhythm and first-degree AV block with functioning pacemaker. FINAL IMPRESSION: This patient has a stable coronary artery disease. No history of angina. Stress test is normal. Echocardiogram reveals normal left ventricular systolic function. The patient is considered an acceptable increased risk for surgery. The patient has held the Eliquis for last 2 days. We will recommend to resume the Eliquis as soon as possible in the postop period. Patient is advised to hold enalapril on the day of the surgery in the morning and which can be resumed in the postop period. He is advised to take Coreg in the morning. Blood sugars will be monitored. Thank you very much for letting me participate in the care of this nice gentleman. AMALIA / MAXIMINO: [id number] /
--- NOTE | 2018-11-17 21:07 | P.GSHP ---
History of Present Illness H&P Date: 11/17/18 68 yo male who was passing a left ureteeral stone He underwent a renal us and coincidentally identified a 4 cm solid central renal mass in the right kidney worrisome for ca of the kidney The patient was referred to me HE underwent a ct scan with and without contrast The mass was identified and deep in the right kidney His creatinine is normal and is left kidney is normal. We discussed a variety of treatment options and have decided on a right radical nephrectomy here at [facility] - Constitutional Constitutional: Denies chills, Denies fever - EENT Eyes: denies blurred vision, denies pain Ears, nose, mouth and throat: Denies headache, Denies sore throat - Cardiovascular Cardiovascular: Denies chest pain, Denies shortness of breath - Respiratory Respiratory: Denies cough, Denies 7 - Gastrointestinal Gastrointestinal: Denies abdominal pain, Denies diarrhea, Denies nausea, Denies vomiting - Genitourinary (Female) Genitourinary: Denies dysuria, Denies hematuria - Genitourinary (Male) Genitourinary: Denies dysuria, Denies hematuria - Musculoskeletal Musculoskeletal: Denies myalgias - Integumentary Integumentary: Denies pruritus, Denies rash - Neurological Neurological: Denies numbness, Denies weakness - Psychiatric Psychiatric: Denies anxiety, Denies depression - Endocrine Endocrine: Denies fatigue, Denies weight change Past Medical History Past Medical History: Atrial Fibrillation, Cancer, Diabetes Mellitus, Eye Disorder, GERD/Reflux, Hyperlipidemia, Hypertension, Myocardial Infarction (HI) Additional Past Medical History / Comment(s): jessica. glaucoma. KIDNEY STONES. RT KIDNEY CANCER Last Myocardial Infarction Date:: 2009 History of Any Multi-Drug Resistant Organisms: None Reported Past Surgical History: AICD, Coronary Bypass/CABG, Orthopedic Surgery, Pacemaker Additional Past Surgical History / Comment(s): 3 VESSEL BYPASS SX 2003, LEFT SHOULDER REPAIR, RIGHT SHOULDER ROTATOR CUFF REPAIR X2 2009, LEFT KNEE CARTILAGE REPAIR 1966, GANGLIAN CYST REMOVED FROM RIGHT WRIST 1994, RIGHT ACHILLES TENDON REPAIR 2006, CLOSED HEAD INJURY ([facility]) WORK RELATED INJURY 1985, jessica cataract surgery Past Anesthesia/Blood Transfusion Reactions: No Reported Reaction Type of Cardiac Device: Permanent Pacemaker, AICD Device Placement Date:: 04/10/15 Smoking Status: Never smoker - Past Family History Mother Family Medical History: Cancer Father Family Medical History: Coronary Artery Disease (CAD) Medications and Allergies Home Medications Medication Instructions Recorded Confirmed Type Atorvastatin [Lipitor] 80 mg PO DAILY 04/07/15 11/13/18 History Multivitamins, Thera [Multivitamin 1 tab PO DAILY 04/07/15 11/13/18 History (formulary)] Omeprazole [PriLOSEC] 10 mg PO DAILY 04/07/15 11/13/18 History amLODIPine [Norvasc] 10 mg PO DAILY 04/07/15 11/13/18 History Enalapril [Vasotec] 20 mg PO BID #60 tab 04/11/15 11/13/18 Rx Fenofibrate [Lofibra] 160 mg PO DAILY 04/30/17 11/13/18 History metFORMIN HCL 1,000 mg PO BID 04/30/17 11/13/18 History Apixaban [Eliquis] 5 mg PO BID 03/02/18 11/13/18 History Brinzolamide [Azopt 1% Ophth Susp] 1 drop BOTH EYES TID 03/02/18 11/13/18 History Carvedilol 25 mg PO BID 03/02/18 11/13/18 History Latanoprost Ophth [Xalatan 0.005%] 1 drops BOTH EYES HS 03/02/18 11/13/18 History Aspirin 81 mg PO DAILY #90 chewable 04/20/18 11/13/18 Rx Hydrocodone/Acetaminophen [[place] 1 tab PO Q6HR PRN #12 tab 09/30/18 11/13/18 Rx 5-325] Glimepiride [Amaryl] 2 mg PO AC-BRKFST 11/13/18 11/13/18 History Allergies Allergy/AdvReac Type Severity Reaction Status Date / Time losartan potassium Allergy Dyspnea Verified 04/14/18 13:10 [From Cozaar] Surgical - Exam - General well developed, well nourished, no distress - Eyes PERRL - ENT no hearing loss - Neck no masses - Respiratory normal expansion, normal respiratory effort - Cardiovascular Rhythm: regular - Abdomen Abdomen: soft, non tender - Genitourinary normal penis with no external lesions, testicles present - Integumentary no rash, no growths - Neurologic normal coordination, normal sensation - Musculoskeletal normal gait, normal posture - Psychiatric oriented to time, oriented to person, oriented to place, speech is normal, memory intact Results - Imaging CT scan - abdomen: report reviewed, image reviewed CT scan - pelvis: report reviewed, image reviewed Assessment and Plan Assessment: Impression: Right renal mass, 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
[~2018-11-18 08:06] MED LIST changes: +DEXAMETHASONE SOD PHOSPHATE 10 MG/ML 1 ML VIAL IV ONE; +HYDROmorphone 0.5 MG/0.5 ML SYRINGE IVP PRN; +LIDOCAINE 1% 20 ML VIAL (10MG/ML) FOR IV START INTRADERMA PRN; -MOXIFLOXACIN HCL 0.5% DROPS 3 ML BTL OP NR; +ONDANSETRON 4 MG/2 ML VIAL IVP ONE; +SCOPOLAMINE 1.5MG/72HR PATCH TRANSDERM ONE; -TETRACAINE 0.5% OPHTH (PF) DROPS 4 ML BTL OP NR; -TIMOLOL 0.5% OPHTH DROPS 5 ML BTL OP NR; -TOBRA-DEXAMET 0.3-0.1% OPHTH DROPS 2.5 ML BTL OPHTHALMIC NR; +ceFAZolin 3 GM in SODIUM CHLORIDE 0.9% 100 ML IVPB ONE; +fentaNYL (PF) 50 MCG/ML 2 ML AMP IV PRN
[2018-11-18] MEDS: LACTATED RINGERS 1,000 ML IV SCH ×2 (08:45→14:52)
[2018-11-18] MEDS ORDERED: NALOXONE 0.4 MG/ML 1 ML VIAL IV PRN (08:48)
[2018-11-18 08:49] LABS: Glucose,Whole Blood 199 mg/dL (75-99)
[2018-11-18] MEDS ORDERED: MIDAZOLAM (PF) 2 MG/2 ML VIAL IV ONE (08:57)
[2018-11-18] MEDS ORDERED: LIDOCAINE 1% INJ 10MG/ML (20 ML MDV) ONE (09:22)
[2018-11-18] MEDS ORDERED: PROPOFOL 10 MG/ML 20 ML VIAL IV ONE (09:22)
[2018-11-18] MEDS ORDERED: GLYCOPYRROLATE 0.2 MG/ML 2 ML VIAL ONE (09:22)
[2018-11-18] MEDS ORDERED: MIDAZOLAM 2 MG/2 ML VIAL ONE (09:22)
[2018-11-18] MEDS ORDERED: NEOSTIGMINE 1 MG/ML 10 ML VIAL ONE (09:22)
[2018-11-18] MEDS ORDERED: SUCCINYLCHOLINE CHLORIDE 100 MG/5 ML SYR IV ONE (09:22)
[2018-11-18] MEDS ORDERED: ROCURONIUM BROMIDE 10 MG/ML 10 ML VIAL IV ONE (09:22)
[2018-11-18] MEDS ORDERED: fentaNYL (PF) 50 MCG/ML 2 ML AMP ONE (09:22)
[2018-11-18] MEDS ORDERED: LACTATED RINGERS 1,000 ML IV ONE (11:15)
[2018-11-18] MEDS ORDERED: ACETAMINOPHEN TAB 325 MG TAB PO PRN (11:30)
--- NOTE | 2018-11-18 11:40 | P.OP ---
Date of Procedure: 11/18/18 Preoperative Diagnosis: Right renal mass Postoperative Diagnosis: Same Procedure(s) Performed: Right radical nephrectomy Anesthesia: RALEIGHA Surgeon: Willard Guzman Assistant Golf Course Superintendent #1: Alirio Carlin Estimated Blood Loss (ml): 100 Pathology: other (Kidney and drug's) Disposition: PACU Indications for Procedure: The patient is a 68-year-old gentleman who had a coincidental ultrasound for kidney stones was identified to have a right renal mass deep in the right kidney about 4 cm. He is evaluated the computed tomography scan contrast and radiology is concerned of a solid lesion and possible renal cell carcinoma. Due to the location he needs a radical nephrectomy. We discussed open versus laparoscopic is chosen open here at [facility] Description of Procedure: The patient was brought to the operating suite. He is given a successful epid ural anesthetic for perioperative pain control and intraoperative pain control followed by general endotracheal anesthesia. He is prepped and draped sterilely. A Beckford catheters introduced sterilely. A right subcostal incision is made. I dissect down through the subcutaneous tissue. Rectus fascia is opened. The oblique fascias are opened. The peritoneum was opened. There is no gross abnormality of the liver up. I reflect the colon off to gerota's fascia medially. I then do a Rosanna maneuver and reflect the duodenum medially. Adequate retraction is made. The renal vein is on the right side is identified. The cava was identified. A vessel loop was placed around the right renal vein. I cleaned off the vena cava. Underneath the right renal vein the right renal artery is identified. I doubly ligate the right renal artery with 2-0 silk and then transected. I then doubly ligate the right renal vein with 2-0 silk and transected. I then free the connective tissue off the vena cava proximally and distally. I entered Road's fascia and dissect the drug's fascia off the top of the kidney so as to spare the adrenal gland. I incised the peritoneum all the way around the kidney. I then reflect Road's off the peritoneum. This is done superiorly and laterally. I then dissect down the vena cava left inferiorly reflecting the tissue laterally hemoclipping any lymph reymundo tissue. Inferiorly I transect the ureter and gonadal vein between hemoclips. I delivered the specimen from the wound. There is no active bleeding. There is minimal bleeding during the dissection. The bowel was allowed to fall back in the right upper quadrant. The omentum was placed over the bowel. The wounds closed in 3 layers and #1 Vicryl. The skin is stapled. Blood loss is less than 100 mL. The patient awake and returned recovery in good condition. Tell procedure well be placed in the hospital postoperatively. I incised the kidney postoperatively to look at the mass and there is a centrally located mass in the kidney. It is solid. Pending pathologist final recommendation.
[2018-11-18] MEDS: ROPIVACAINE 250 MG, fentaNYL (PF) 625 MCG in SODIUM CHLORIDE 0.9% 188 ML EPIDURAL PRN (11:42)
[2018-11-18 12:36] LABS: Glucose,Whole Blood 212 mg/dL (75-99)
[2018-11-18] MEDS: SODIUM CHLORIDE 0.45% 1,000 ML IV SCH ×2 (14:52→21:26)
[2018-11-18 16:56] LABS: Glucose,Whole Blood 162 mg/dL (75-99)
[2018-11-18] MEDS: DORZOLAMIDE HCL 2% DROPS 10 ML BTL BOTH EYES SCH ×2 (17:48→21:25)
[2018-11-18] MEDS: CARVEDILOL 12.5 MG TAB PO SCH (17:48)
[2018-11-18 20:15] LABS: Glucose,Whole Blood 211 mg/dL (75-99)
[2018-11-18] MEDS: metFORMIN 500 MG TAB PO SCH (21:25)
[2018-11-18] MEDS: LISINOPRIL 20 MG TAB PO SCH (21:25)
[2018-11-18] MEDS: LATANOPROST 0.005% OPHTH DROPS 2.5 ML BTL BOTH EYES SCH (21:25)
[2018-11-19] MEDS: LACTATED RINGERS 1,000 ML IV SCH ×2 (04:32)
--- NOTE | 2018-11-19 06:43 | P.PN ---
Subjective Progress Note Date: 11/19/18 The patient is in his first postoperative day from a right radical nephrectomy. He is pain-free. His abdomen is soft. His urine output is good. His vital signs are stable. He is tolerating clear liquids. He will ambulate today. Depending on how he feels is whether we'll keep the epidural in until Friday. The patient is stable. Objective - Vital Signs Vital signs: Vital Signs Temp 99.2 F 11/19/18 01:48 Pulse 50 L 11/19/18 01:48 Resp 18 11/19/18 01:48 BP 142/64 11/19/18 01:48 Pulse Ox 92 L 11/19/18 01:48 Intake & Output 11/18/18 11/18/18 11/19/18 06:59 18:59 06:59 Intake Total 1481 Output Total 200 2350 Balance 1281 -2350 Weight 130.7 kg Intake: IV 1481 Output: Urine 100 2350 Estimated Blood Loss 100 Other: Voiding Method Indwelling Catheter - Labs Labs: Abnormal Lab Results - Last 24 Hours (Table) 11/18/18 11/18/18 11/18/18 Range/Units 08:46 12:22 16:54 POC Glucose (mg/dL) 199 H 212 H 162 H (75-99) mg/dL 11/18/18 Range/Units 20:13 POC Glucose (mg/dL) 211 H (75-99) mg/dL
[2018-11-19] MEDS: DORZOLAMIDE HCL 2% DROPS 10 ML BTL BOTH EYES SCH ×3 (07:05→21:16)
[2018-11-19] MEDS: GLIMEPIRIDE 2 MG TAB PO SCH (07:06)
[2018-11-19] MEDS: amLODIPine 10 MG TAB PO SCH (07:06)
[2018-11-19] MEDS: PANTOPRAZOLE 40 MG TABLET PO SCH (07:06)
[2018-11-19] MEDS: ATORVASTATIN 80 MG TAB PO SCH (07:06)
[2018-11-19] MEDS: metFORMIN 500 MG TAB PO SCH ×2 (07:06→21:15)
[2018-11-19] MEDS: CARVEDILOL 12.5 MG TAB PO SCH ×2 (07:06→17:49)
[2018-11-19] MEDS: LISINOPRIL 20 MG TAB PO SCH ×2 (07:06→21:16)
[2018-11-19 07:09] LABS: Glucose,Whole Blood 149 mg/dL (75-99)
[2018-11-19] MEDS: SODIUM CHLORIDE 0.45% 1,000 ML IV SCH ×2 (07:13→17:50)
[2018-11-19] MEDS: ROPIVACAINE 250 MG, fentaNYL (PF) 625 MCG in SODIUM CHLORIDE 0.9% 188 ML EPIDURAL PRN (08:55)
[2018-11-19 11:18] LABS: Glucose,Whole Blood 207 mg/dL (75-99)
--- NOTE | 2018-11-19 12:52 | P.PN ---
Progress Note - Text Anesthesia POD 1. Status Post right nephrectomy under general endotracheal anesthesia with an epidrual catheter placed at approximately T10 for post surgical pain releif. VAS (0, 3) with Ropivicaine 0.1 % and fentanyl 2.5 mcg / cc running at 8 cc / hr. Lower extremity strength (4/4). No sedation. Site looks OK.
[2018-11-19] MEDS: ONDANSETRON 4 MG/2 ML VIAL IVP PRN (12:58)
--- NOTE | 2018-11-19 12:58 | P.PN ---
Progress Note - Text Progress Note Date: 11/19/18 This is a pleasant 68-year-old gentleman who sees Dr. 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 On follow-up with the patient today, he seems to be stable clinically. He feels little nauseated. Denies any chest pain, shortness of breath, dizziness, or heart racing. Hemodynamically, he is slightly bradycardic with a heart rate in the upper 40s and lower 50s. He does have a permanent pacemaker. From the cardiovascular standpoint of view, will recommend continue the current medical regimen. We also recommended the patient to be restarted on oral anticoagulation once is safe from the surgical standpoint overview.
[2018-11-19 16:53] LABS: Glucose,Whole Blood 180 mg/dL (75-99)
[2018-11-19 19:58] LABS: Glucose,Whole Blood 227 mg/dL (75-99)
[2018-11-19] MEDS: LATANOPROST 0.005% OPHTH DROPS 2.5 ML BTL BOTH EYES SCH (21:16)
[2018-11-20] MEDS: SODIUM CHLORIDE 0.45% 1,000 ML IV SCH ×3 (01:15→20:39)
[2018-11-20] MEDS: LACTATED RINGERS 1,000 ML IV SCH ×2 (05:27)
[2018-11-20 07:08] LABS: Glucose,Whole Blood 156 mg/dL (75-99)
--- NOTE | 2018-11-20 07:34 | P.PN ---
Progress Note - Text Progress Note Date: 11/20/18 The patient is afebrile and normotensive. He is tolerating liquids. He denies any shortness of breath or chest pain. He has minimal pain with the epidural anesthetic. Urine output is clear. No significant abdominal pain. The patient continues to do well following right radical nephrectomy. His epidural catheter will be removed in the morning after which his Beckford catheter can be removed. If remains comfortable I told him he may be able to be discharged sometime later tomorrow.
--- NOTE | 2018-11-20 07:38 | P.PN ---
Progress Note - Text Progress Note Date: 11/20/18 Patient is POD#2. Doing well. Some pain with coughing, but otherwise well controlled. Has been OOB to chair and walking. Denies headache. Epidural site clean and dry. A/P POD#2 s/p radical nephrectomy - continue epidural @ 8ml/hr
[2018-11-20] MEDS: metFORMIN 500 MG TAB PO SCH ×2 (09:02→20:39)
[2018-11-20] MEDS: ATORVASTATIN 80 MG TAB PO SCH (09:02)
[2018-11-20] MEDS: LISINOPRIL 20 MG TAB PO SCH ×2 (09:02→20:39)
[2018-11-20] MEDS: GLIMEPIRIDE 2 MG TAB PO SCH (09:02)
[2018-11-20] MEDS: amLODIPine 10 MG TAB PO SCH (09:03)
[2018-11-20] MEDS: CARVEDILOL 12.5 MG TAB PO SCH ×2 (09:03→17:00)
[2018-11-20] MEDS: PANTOPRAZOLE 40 MG TABLET PO SCH (09:03)
[2018-11-20] MEDS: LATANOPROST 0.005% OPHTH DROPS 2.5 ML BTL BOTH EYES SCH ×2 (09:04→20:40)
[2018-11-20] MEDS: DORZOLAMIDE HCL 2% DROPS 10 ML BTL BOTH EYES SCH ×3 (09:07→20:40)
[2018-11-20] MEDS: ONDANSETRON 4 MG/2 ML VIAL IVP PRN (10:42)
[2018-11-20 11:47] LABS: Glucose,Whole Blood 204 mg/dL (75-99)
[2018-11-20 11:56] LABS: Potassium 4.4 mmol/L (3.5-5.1)
[2018-11-20] MEDS: ROPIVACAINE 250 MG, fentaNYL (PF) 625 MCG in SODIUM CHLORIDE 0.9% 188 ML EPIDURAL PRN (13:00)
[2018-11-20 17:06] LABS: Glucose,Whole Blood 191 mg/dL (75-99)
[2018-11-21] MEDS: LACTATED RINGERS 1,000 ML IV SCH ×2 (00:52)
[2018-11-21] MEDS: SODIUM CHLORIDE 0.45% 1,000 ML IV SCH ×2 (06:06→09:36)
[2018-11-21] MEDS: LISINOPRIL 20 MG TAB PO SCH ×2 (07:37→20:50)
[2018-11-21] MEDS: metFORMIN 500 MG TAB PO SCH ×2 (07:37→20:50)
[2018-11-21] MEDS: ATORVASTATIN 80 MG TAB PO SCH (07:37)
[2018-11-21] MEDS: amLODIPine 10 MG TAB PO SCH (07:37)
[2018-11-21] MEDS: CARVEDILOL 12.5 MG TAB PO SCH ×2 (07:37→16:20)
[2018-11-21] MEDS: GLIMEPIRIDE 2 MG TAB PO SCH (07:37)
[2018-11-21] MEDS: PANTOPRAZOLE 40 MG TABLET PO SCH (07:37)
[2018-11-21] MEDS: DORZOLAMIDE HCL 2% DROPS 10 ML BTL BOTH EYES SCH ×3 (07:37→20:48)
[2018-11-21] MEDS ORDERED: HYDROcodone/APAP 5-325MG 1 EACH TAB PO PRN (09:22)
--- NOTE | 2018-11-21 09:26 | P.PN ---
Subjective Progress Note Date: 11/21/18 Principal diagnosis: POD #3, s/p right radical nephrectomy The patient states that he is ambulating well. He is tolerating diet and has had several small bowel movements. He denies any pain. He has experienced nausea when ambulating. He attributes this to the epidural catheter. Objective - Vital Signs Vital signs: Vital Signs Temp 98.4 F 11/21/18 07:00 Pulse 53 L 11/21/18 07:00 Resp 16 11/21/18 07:00 BP 150/80 11/21/18 07:00 Pulse Ox 96 11/21/18 07:00 Intake & Output 11/20/18 11/21/18 11/21/18 18:59 06:59 18:59 Intake Total 133.988 0121 Output Total 2550 3180 Balance -1825.333 -1000 Intake: Intake, IV Titration 222.488 9184 Amount Ropivacaine 250 mg 224.667 fentaNYL (PF) 625 mcg In Sodium Chloride 0.9% 188 ml @ Per Protocol EPIDURAL .Q0M PRN Rx#: [id number] Sodium Chloride 0.45% 1, 1000 000 ml @ 100 mls/hr IV . Q10H AUDI Rx#:[id number] Oral 500 1180 Output: Urine 2550 3180 Uretheral (Beckford) 1400 2500 Other: Voiding Method Indwelling Catheter Indwelling Catheter Indwelling Catheter # Voids 1 1 - Constitutional General appearance: Present: cooperative, no acute distress - Gastrointestinal Gastrointestinal Comment(s): Soft, non-distended. Incision clean, dry, and intact. - Psychiatric Psychiatric: Present: A&O x's 3, appropriate affect - Labs CBC & Chem 7: 11/20/18 11:06 Labs: Abnormal Lab Results - Last 24 Hours (Table) 11/20/18 11/20/18 11/20/18 Range/Units 11:06 11:34 17:03 Sodium 136 L (137-145) mmol/L Creatinine 1.89 H (0.66-1.25) mg/dL Glucose 217 H (74-99) mg/dL POC Glucose (mg/dL) 204 H 191 H (75-99) mg/dL Assessment and Plan (1) Right renal mass Current Visit: Yes Status: Acute Code(s): N28.89 - OTHER SPECIFIED DISORDERS OF KIDNEY AND URETER SNOMED Code(s): 234679969 Plan: The epidural catheter and Beckford catheter will be removed. Diet will be advanced. Oral analgesics and been prescribed. He will be discharged home later today or tomorrow, depending how he feels.
[2018-11-21 11:53] LABS: Glucose,Whole Blood 296 mg/dL (75-99)
[2018-11-21] MEDS: HYDROcodone/APAP 5-325MG 1 EACH TAB PO PRN ×3 (13:57→22:12)
[2018-11-21 17:13] LABS: Glucose,Whole Blood 206 mg/dL (75-99)
[2018-11-21 20:09] LABS: Glucose,Whole Blood 212 mg/dL (75-99)
[2018-11-21] MEDS: LATANOPROST 0.005% OPHTH DROPS 2.5 ML BTL BOTH EYES SCH (20:48)
[2018-11-22] MEDS: LACTATED RINGERS 1,000 ML IV SCH ×2 (05:59→06:00)
[2018-11-22] MEDS: HYDROcodone/APAP 5-325MG 1 EACH TAB PO PRN ×2 (06:03→13:45)
[2018-11-22] MEDS: CARVEDILOL 12.5 MG TAB PO SCH (06:12)
[2018-11-22] MEDS: amLODIPine 10 MG TAB PO SCH (06:12)
[2018-11-22 07:08] LABS: Glucose,Whole Blood 185 mg/dL (75-99)
[2018-11-22] MEDS: SODIUM CHLORIDE 0.45% 1,000 ML IV SCH (07:41)
[2018-11-22] MEDS: GLIMEPIRIDE 2 MG TAB PO SCH (07:46)
[2018-11-22] MEDS: LISINOPRIL 20 MG TAB PO SCH (07:46)
[2018-11-22] MEDS: DORZOLAMIDE HCL 2% DROPS 10 ML BTL BOTH EYES SCH (07:46)
[2018-11-22] MEDS: metFORMIN 500 MG TAB PO SCH (07:47)
[2018-11-22] MEDS: ATORVASTATIN 80 MG TAB PO SCH (07:47)
[2018-11-22] MEDS: PANTOPRAZOLE 40 MG TABLET PO SCH (07:47)
[2018-11-22 07:58] VITALS: RESP 14; TEMP 97.9
[2018-11-22 10:01] VITALS: BP 166/60; PULSE 54
--- NOTE | 2018-11-22 11:49 | P.PN ---
Subjective Progress Note Date: 11/22/18 Principal diagnosis: POD #4, s/p right radical nephrectomy The patient states that he is ambulating well. He is tolerating regular diet and has had several small bowel movements. He reports mild incisional pain, controlled with analgesics. He denies chest pain and shortness of breath. Objective - Vital Signs Vital signs: Vital Signs Temp 97.9 F 11/22/18 07:00 Pulse 54 L 11/22/18 10:00 Resp 14 11/22/18 07:00 BP 166/60 11/22/18 10:00 Pulse Ox 96 11/22/18 07:00 Intake & Output 11/21/18 11/22/18 11/22/18 18:59 06:59 18:59 Intake Total 396 Balance 396 Intake: Oral 396 Other: Voiding Method Indwelling Catheter Indwelling Catheter # Voids 2 - Constitutional General appearance: Present: cooperative, no acute distress - Gastrointestinal Gastrointestinal Comment(s): Soft, non-distended. Incision clean, dry, and intact. Several blisters are noted inferior to the incision. - Labs CBC & Chem 7: 11/20/18 11:06 Labs: Abnormal Lab Results - Last 24 Hours (Table) 11/21/18 11/21/18 11/21/18 Range/Units 11:52 17:12 20:08 POC Glucose (mg/dL) 296 H 206 H 212 H (75-99) mg/dL 11/22/18 Range/Units 07:07 POC Glucose (mg/dL) 185 H (75-99) mg/dL Assessment and Plan (1) Right renal mass Current Visit: Yes Status: Acute Code(s): N28.89 - OTHER SPECIFIED DISORDERS OF KIDNEY AND URETER SNOMED Code(s): 272210454 Plan: The patient is doing well and is urologically stable for discharge. However, I will ask that he be seen by internal medicine prior to discharge in view of his hypertension.
[2018-11-22 11:57] LABS: Glucose,Whole Blood 180 mg/dL (75-99)
--- NOTE | 2018-11-22 12:08 | P.DS ---
Providers Date of admission: 11/18/18 08:06 Expected date of discharge: 11/22/18 Attending physician: Willard Guzman Consults: 11/22/18 11:49 Consult Physician Urgent Consulting Provider: Moise Simmons Consult Reason/Comments: Hypertension Do you want consulting provider notified?: Yes Primary care physician: Anamika Cox - Discharge Diagnosis(es) (1) Right renal mass Current Visit: Yes Status: Acute Hospital Course: The patient states that he is ambulating well. He is tolerating regular diet and has had several small bowel movements. He reports mild incisional pain, controlled with analgesics. He denies chest pain and shortness of breath. Procedures: Right radical nephrectomy on November 19, 2018. Patient Condition at Discharge: Good Plan - Discharge Summary Discharge Rx Participant: No New Discharge Prescriptions: New hydrALAZINE HCL [Apresoline] 75 mg PO TID #90 tab Hydrocodone/Acetaminophen [[place] 5-325] 1 - 2 each PO Q4HR PRN #10 tab PRN Reason: Pain Continue amLODIPine [Norvasc] 10 mg PO DAILY Atorvastatin [Lipitor] 80 mg PO DAILY Multivitamins, Thera [Multivitamin (formulary)] 1 tab PO DAILY Fenofibrate [Lofibra] 160 mg PO DAILY Latanoprost Ophth [Xalatan 0.005%] 1 drops BOTH EYES HS Carvedilol 25 mg PO BID Brinzolamide [Azopt 1% Ophth Susp] 1 drop BOTH EYES TID Aspirin 81 mg PO DAILY #90 chewable Hydrocodone/Acetaminophen [[place] 5-325] 1 tab PO Q6HR PRN #12 tab PRN Reason: Pain Apixaban [Eliquis] 5 mg PO BID Enalapril [Vasotec] 20 mg PO BID Changed Glimepiride [Amaryl] 2 mg PO BID-W/MEALS #60 tab Discontinued Omeprazole [PriLOSEC] 10 mg PO DAILY metFORMIN HCL 1,000 mg PO BID Discharge Medication List Atorvastatin [Lipitor] 80 mg PO DAILY 04/07/15 [History] Multivitamins, Thera [Multivitamin (formulary)] 1 tab PO DAILY 04/07/15 [History] amLODIPine [Norvasc] 10 mg PO DAILY 04/07/15 [History] Fenofibrate [Lofibra] 160 mg PO DAILY 04/30/17 [History] Brinzolamide [Azopt 1% Ophth Susp] 1 drop BOTH EYES TID 03/02/18 [History] Carvedilol 25 mg PO BID 03/02/18 [History] Latanoprost Ophth [Xalatan 0.005%] 1 drops BOTH EYES HS 03/02/18 [History] Aspirin 81 mg PO DAILY #90 chewable 04/20/18 [Rx] Hydrocodone/Acetaminophen [[place] 5-325] 1 tab PO Q6HR PRN #12 tab 09/30/18 [Rx] Apixaban [Eliquis] 5 mg PO BID 11/18/18 [History] Enalapril [Vasotec] 20 mg PO BID 11/18/18 [History] Glimepiride [Amaryl] 2 mg PO BID-W/MEALS #60 tab 11/22/18 [Rx] Hydrocodone/Acetaminophen [[place] 5-325] 1 - 2 each PO Q4HR PRN #10 tab 11/22/18 [Rx] hydrALAZINE HCL [Apresoline] 75 mg PO TID #90 tab 11/22/18 [Rx] Follow up Appointment(s)/Referral(s): Anamika Cox MD [Primary Care Provider] - 1-2 Days Willard Guzman MD [STAFF PHYSICIAN] - 1 Week Activity/Diet/Wound Care/Special Instructions: OK to shower. No lifting, driving, or strenuous activity. Diet as tolerated. Discharge Disposition: HOME SELF-CARE
--- NOTE | 2018-11-22 12:25 | P.CONS ---
History of Present Illness - Reason for Consult Accelerated hypertension - History of Present Illness 68-year-old pleasant gentleman with multiple medical problems is admitted for Right nephrectomy patient successfully underwent surgery clinically doing well. Patient will be has blood pressures as high as 200 systolic although patient is bradycardic at this time. Patient has multiple other medical problems including coronary artery disease with history of CABG in the past type 2 diabetes mellitus uncontrolled blood sugars and elevated blood sugars here. Patient has history of atrial fibrillation for which patient is on Eliquis. Patient was taking ROWENA inhibitor at home that started being continued here. Patient baseline creatinine is around 1.0 and it has gone up to 1.6 secondary to nephrectomy. Because of this worsening creatinine nephrectomy any to chainsaw the medications including temporally holding ROWENA inhibitor which can be restarted down the line kidney function improves a bit. Meantime I'll use hydralazine 75 mg 3 times a day and patient can be discharged home. His metformin will be discontinued because of the renal function and we'll increase the dose of sulfonylurea to twice a day. Patient will be resumed on Eliquis. Patient will follow-up with PCP in about a week and patient will check his blood sugars and blood pressures at home twice a day. Review of Systems REVIEW OF SYSTEMS: CONSTITUTIONAL: No fever, no malaise, no fatigue. HEENT: No recent visual problems or hearing problems. Denied any sore throat. CARDIOVASCULAR: No chest pain, orthopnea, PND, no palpitations, no syncope. PULMONARY: No shortness of breath, no cough, no hemoptysis. GASTROINTESTINAL: No diarrhea, no nausea, no vomiting, no abdominal pain. NEUROLOGICAL: No headaches, no weakness, no numbness. HEMATOLOGICAL: Denies any bleeding or petechiae. GENITOURINARY: Denies any burning micturition, frequency, or urgency. MUSCULOSKELETAL/RHEUMATOLOGICAL: Denies any joint pain, swelling, or any muscle pain. ENDOCRINE: Denies any polyuria or polydipsia. The rest of the 14-point review of systems is negative. Past Medical History Past Medical History: Atrial Fibrillation, Cancer, Diabetes Mellitus, Eye Disorder, GERD/Reflux, Hyperlipidemia, Hypertension, Myocardial Infarction ([place]) Additional Past Medical History / Comment(s): jessica. glaucoma. KIDNEY STONES. RT KIDNEY CANCER Last Myocardial Infarction Date:: 2009 History of Any Multi-Drug Resistant Organisms: None Reported Past Surgical History: AICD, Coronary Bypass/CABG, Orthopedic Surgery, Pacemaker Additional Past Surgical History / Comment(s): 3 VESSEL BYPASS SX 2003, LEFT SHOULDER REPAIR, RIGHT SHOULDER ROTATOR CUFF REPAIR X2 2009, LEFT KNEE CARTILAGE REPAIR 1966, GANGLIAN CYST REMOVED FROM RIGHT WRIST 1994, RIGHT ACHILLES TENDON REPAIR 2006, CLOSED HEAD INJURY ([facility]) WORK RELATED INJURY 1985, jessica cataract surgery Past Anesthesia/Blood Transfusion Reactions: No Reported Reaction Type of Cardiac Device: Permanent Pacemaker, AICD Device Placement Date:: 04/10/15 Past Psychological History: No Psychological Hx Reported Smoking Status: Never smoker Past Alcohol Use History: Occasional Additional Past Alcohol Use History / Comment(s): PT OCCASIONALLY SMOKES A CIGAR EVERY OTHER MONTH OR SO Past Drug Use History: None Reported - Past Family History Mother Family Medical History: Cancer Father Family Medical History: Coronary Artery Disease (CAD) Medications and Allergies Home Medications Medication Instructions Recorded Confirmed Type Atorvastatin [Lipitor] 80 mg PO DAILY 04/07/15 11/18/18 History Multivitamins, Thera [Multivitamin 1 tab PO DAILY 04/07/15 11/18/18 History (formulary)] amLODIPine [Norvasc] 10 mg PO DAILY 04/07/15 11/18/18 History Fenofibrate [Lofibra] 160 mg PO DAILY 04/30/17 11/18/18 History Brinzolamide [Azopt 1% Ophth Susp] 1 drop BOTH EYES TID 03/02/18 11/18/18 History Carvedilol 25 mg PO BID 03/02/18 11/18/18 History Latanoprost Ophth [Xalatan 0.005%] 1 drops BOTH EYES HS 03/02/18 11/18/18 History Aspirin 81 mg PO DAILY #90 chewable 04/20/18 11/18/18 Rx Hydrocodone/Acetaminophen [[place] 1 tab PO Q6HR PRN #12 tab 09/30/18 11/18/18 Rx 5-325] Apixaban [Eliquis] 5 mg PO BID 11/18/18 11/18/18 History Enalapril [Vasotec] 20 mg PO BID 11/18/18 11/18/18 History Glimepiride [Amaryl] 2 mg PO BID-W/MEALS #60 tab 11/22/18 Rx Hydrocodone/Acetaminophen [[place] 1 - 2 each PO Q4HR PRN #10 tab 11/22/18 Rx 5-325] hydrALAZINE HCL [Apresoline] 75 mg PO TID #90 tab 11/22/18 Rx Allergies Allergy/AdvReac Type Severity Reaction Status Date / Time losartan potassium Allergy Dyspnea Verified 11/18/18 13:33 [From [facility]] Physical Exam Vitals: Vital Signs Temp Pulse Pulse Resp BP Pulse Ox 11/22/18 10:00 54 L 166/60 11/22/18 07:00 97.9 F 50 L 14 184/87 96 11/22/18 06:14 50 L 20 207/72 11/22/18 01:01 98.2 F 49 L 18 190/76 98 11/21/18 23:53 59 L 20 189/75 11/21/18 22:10 71 20 192/75 11/21/18 19:57 98.5 F 51 L 20 200/74 97 11/21/18 14:48 98.0 F 49 L 16 154/73 96 Intake and Output 11/21/18 11/22/18 11/22/18 22:59 06:59 14:59 Intake Total 396 Balance 396 Intake: Oral 396 Other: Voiding Method Indwelling Catheter PHYSICAL EXAMINATION: GENERAL: The patient is alert and oriented x3, not in any acute distress. Well developed, well nourished. Obese HEENT: Pupils are round and equally reacting to light. EOMI. No scleral icterus. No conjunctival pallor. Normocephalic, atraumatic. No pharyngeal erythema. No thyromegaly. CARDIOVASCULAR: S1 and S2 present. No murmurs, rubs, or gallops. PULMONARY: Chest is clear to auscultation, no wheezing or crackles. ABDOMEN: Soft, nontender, nondistended, normoactive bowel sounds. No palpable organomegaly. MUSCULOSKELETAL: No joint swelling or deformity. EXTREMITIES: No cyanosis, clubbing, or pedal edema. NEUROLOGICAL: Gross neurological examination did not reveal any focal deficits. SKIN: No rashes. Results CBC & Chem 7: 11/20/18 11:06 Labs: Abnormal Lab Results - Last 24 Hours (Table) 11/21/18 11/21/18 11/22/18 Range/Units 17:12 20:08 07:07 POC Glucose (mg/dL) 206 H 212 H 185 H (75-99) mg/dL 11/22/18 Range/Units 11:56 POC Glucose (mg/dL) 180 H (75-99) mg/dL Assessment and Plan Plan: -Accelerated hypertension: Patient does not have any signs or symptoms of and organ damage can be discharged with the above-mentioned plan. -Type 2 diabetes mellitus -Atrial fibrillation presently rate controlled on beta angel and will resume his Eliquis -Type 2 diabetes mellitus: Medication changes as mentioned above -Coronary artery disease -Right-sided nephrectomy: Follow-up with the urology as an outpatient and elevated creatinine secondary to nephrectomy -Acute renal failure secondary to nephrectomy -Hyperlipidemia -Gastroesophageal reflux disease Patient can be discharged from medical perspective with above-mentioned medication changes. I did do the medication reconciliation.
== END 2018-11-22 13:57 | disposition home or self-care (01) | DRG 658 ==
LOC: 2ORMAIN 08:06 → 4SSUR 13:01
PROVIDERS: ADMIT Urology; ATTEND Urology
PROC: 0TT00ZZ Resection of Right Kidney, Open Approach (ICD-10-PCS; principal; 2018-11-18 09:15)
DX: D30.01 Benign neoplasm of right kidney (principal); E78.5 Hyperlipidemia, unspecified; K21.9 Gastro-esophageal reflux disease without esophagitis; I25.10 Atherosclerotic heart disease of native coronary artery without angina pectoris; E11.39 Type 2 diabetes mellitus with other diabetic ophthalmic complication; H42 Glaucoma in diseases classified elsewhere; I11.0 Hypertensive heart disease with heart failure; I48.0 Paroxysmal atrial fibrillation; I50.9 Heart failure, unspecified; I44.0 Atrioventricular block, first degree; Z95.0 Presence of cardiac pacemaker; Z88.8 Allergy status to other drugs, medicaments and biological substances; I25.2 Old myocardial infarction; Z90.5 Acquired absence of kidney; Z87.891 Personal history of nicotine dependence; Z95.1 Presence of aortocoronary bypass graft; Z79.01 Long term (current) use of anticoagulants; Z79.84 Long term (current) use of oral hypoglycemic drugs; Z79.82 Long term (current) use of aspirin; Z79.899 Other long term (current) drug therapy; Z98.42 Cataract extraction status, left eye; Z98.41 Cataract extraction status, right eye; Z87.820 Personal history of traumatic brain injury; Z82.49 Family history of ischemic heart disease and other diseases of the circulatory system; Z87.442 Personal history of urinary calculi
CPT/HCPCS: 80048; 86850; 86900; 86901; 88307; 88341; 88342

== ENCOUNTER → 2019-03-05 | Outpatient (CLI) | payer MEDICARE, OTHER ==
--- NOTE | 2019-03-05 15:58 | US ---
EXAMINATION TYPE: US kidneys/renal and bladder DATE OF EXAM: 03/05/2019 COMPARISON: NONE CLINICAL HISTORY: N18.9 CKD. renal cell carcinoma on the right, nephrectomy November 2018, h/o left renal stones, no symptoms today EXAM MEASUREMENTS: Right Kidney: Surgically absent cm Left Kidney: 13.9 x 5.4 x 8.0cm Right Kidney: surgically absent Left Kidney: large in size, otherwise wnl Bladder: 7-8mm wall thickness in not completely distended bladder Bilateral Jets seen: left IMPRESSION: Some urinary bladder wall thickening is not excluded.
== END | disposition home or self-care (01) ==
LOC: RADUSWWP 14:11
PROVIDERS: ATTEND Internal Medicine
DX: N18.9 Chronic kidney disease, unspecified (principal)
CPT/HCPCS: 76770

== ENCOUNTER → 2019-03-09 | Outpatient (CLI) | payer MEDICARE, OTHER ==
[2019-03-09 09:13] LABS: HGB 12.8 gm/dL (13.0-17.5); MCH 29.8 pg (25.0-35.0); MCHC 33.7 g/dL (31.0-37.0); MCV 88.5 fL (80.0-100.0); Mean Platelet Volume 6.4; Platelet Count 308 k/uL (150-450); RBC 4.29 m/uL (4.30-5.90); WBC 6.5 k/uL (3.8-10.6)
[2019-03-09 09:23] LABS: Appearance,Urine Clear (Clear); Bilirubin,Urine Negative (Negative); Blood,Urine Negative (Negative); Color,Urine Light Yellow; Glucose,Urine (UA) Negative (Negative); Ketones,Urine Negative (Negative); Leukocyte Esterase,Urine Small (Negative); Mucus,Urine Rare /hpf; Nitrite,Urine Negative (Negative); PH, Urine 5.5 (5.0-8.0); Protein,Urine Trace (Negative); RBC,Urine 1 /hpf (0-5); Specific Gravity,Urine 1.015 (1.001-1.035); Squamous Epithelial Cell,Urine <1 /hpf (0-4); Urobilinogen,Urine <2.0 mg/dL (<2.0); WBC,Urine 4 /hpf (0-5)
[2019-03-09 16:53] LABS: Iron Saturation 17.55 (15.00-50.00)
[2019-03-09 17:01] LABS: Vitamin D 25 Hydroxy 27.4 ng/mL (30.0-100.0)
[2019-03-09 17:02] LABS: Ferritin 72.7 ng/mL (22.0-322.0)
[2019-03-09 17:39] LABS: African American GFR (CKD) 41.1 (60.0-200.0); Albumin 4.3 g/dL (3.80-4.90); Albumin/Globulin Ratio 2.39 (1.60-3.17); Anion Gap 10.1 mmol/L (4.00-12.00); BUN/Creat Ratio 17.37 Ratio (12.00-20.00); Calcium 9.3 mg/dL (8.7-10.3); Carbon Dioxide 20.9 mmol/L (21.6-31.8); Chol/HDL Ratio 3.95; Globulin 1.8 g/dL (1.6-3.3); LDL Cholesterol,Calculated 87.2 mg/dL (0.0-131.0); Phosphorus 3.7 mg/dL (2.4-5.1); Potassium 4.4 mmol/L (3.5-5.5); Total Bilirubin 0.3 mg/dL (0.3-1.2); Total Protein 6.1 g/dL (6.2-8.2); Uric Acid 4.7 mg/dL (3.7-8.7); VLDL Calculation 33.8 mg/dL (5.00-40.00)
[2019-03-09 17:47] LABS: Hemoglobin A1C 7.2 % (4.0-6.0)
== END ==
LOC: LABWHC1 08:27
PROVIDERS: ATTEND Internal Medicine
DX: N18.9 Chronic kidney disease, unspecified (principal); D63.1 Anemia in chronic kidney disease; N39.0 Urinary tract infection, site not specified; N25.81 Secondary hyperparathyroidism of renal origin; E55.9 Vitamin D deficiency, unspecified; E11.65 Type 2 diabetes mellitus with hyperglycemia; M10.9 Gout, unspecified; R80.9 Proteinuria, unspecified
CPT/HCPCS: 36415; 80053; 80061; 81001; 82043; 82306; 82570; 82728; 83036; 83540; 83550; 83735; 83970; 84100; 84443; 84550; 85027

== ENCOUNTER 2019-04-28 06:18 | Day surgery (SDC) | payer MEDICARE, OTHER ==
[2019-04-26 13:56] VITALS: BMI 37.5
[~2019-04-28 06:18] MED LIST changes: -DEXAMETHASONE SOD PHOSPHATE 10 MG/ML 1 ML VIAL IV ONE; -HYDROmorphone 0.5 MG/0.5 ML SYRINGE IVP PRN; +LACTATED RINGERS 1,000 ML IV SCH; +MOXIFLOXACIN HCL 0.5% DROPS 3 ML BTL OP NR; -ONDANSETRON 4 MG/2 ML VIAL IVP ONE; -SCOPOLAMINE 1.5MG/72HR PATCH TRANSDERM ONE; +TETRACAINE 0.5% OPHTH (PF) DROPS 4 ML BTL OP NR; +TIMOLOL 0.5% OPHTH DROPS 5 ML BTL OP NR; -ceFAZolin 3 GM in SODIUM CHLORIDE 0.9% 100 ML IVPB ONE; -fentaNYL (PF) 50 MCG/ML 2 ML AMP IV PRN
[2019-04-28 06:48] LABS: Glucose,Whole Blood 182 mg/dL (75-99)
[2019-04-28] MEDS: PILOCARPINE 2% OPHTH DROPS 15 ML BTL OP NR ×2 (06:50→07:47)
[2019-04-28 06:52] VITALS: RESP 16; TEMP 97.1
[2019-04-28] MEDS ORDERED: MIDAZOLAM 2 MG/2 ML VIAL ONE (07:22)
[2019-04-28] MEDS ORDERED: fentaNYL (PF) 50 MCG/ML 2 ML AMP ONE (07:22)
[2019-04-28] MEDS ORDERED: LIDOCAINE (PF) 10 MG/ML 5ML AMP MISCELLANE ONE (07:41)
[2019-04-28] MEDS ORDERED: TRYPAN BLUE 0.06% SYRINGE 0.5 ML SYRINGE INTRAOCULA ONE (07:44)
[2019-04-28] MEDS ORDERED: BALANCED SALT IRRIG SOLN COMB2 15 ML IRRIG.SOLN INTRAOCULA ONE (07:48)
[2019-04-28] MEDS ORDERED: CHONDROITIN-SOD HYALURONATE 1 EACH SYRINGE (0.75 ML) INTRAOCULA ONE (07:48)
--- NOTE | 2019-04-28 07:54 | P.OP ---
Date of Procedure: 04/28/19 Preoperative Diagnosis: POAG severe Postoperative Diagnosis: same Procedure(s) Performed: goniotomy right Implants: none Anesthesia: MAC Surgeon: Rubin Cardona Estimated Blood Loss (ml): 5 Pathology: none sent Condition: stable Disposition: same day Indications for Procedure: better glaucoma control Operative Findings: no complications
[2019-04-28 08:10] VITALS: BP 120/73; PULSE 50
--- NOTE | 2019-04-28 23:40 | OP ---
OPERATIVE REPORT DATE OF SURGERY: 04/28/2019. PROCEDURE: Goniotomy of the right eye. PREOPERATIVE DIAGNOSIS: Severe glaucoma. POSTOPERATIVE DIAGNOSIS: Severe glaucoma. SURGEON: Dr. Rubin Cardona. ANESTHESIA: Topical. ESTIMATED BLOOD LOSS: Less than 5 mL. SPECIMEN TAKEN: None. NARRATIVE: After obtaining the appropriate consent, the patient was brought to the operating room. There he was placed under cardiac monitoring, prepped and draped in the usual sterile manner. He was approached from his right temporal side and at the 9 o'clock position, a 2.5 mm keratome was used to create a self-sealing corneal flap incision. Xylocaine MPF 1% was instilled into the anterior chamber followed by trypan blue, which was left in place for 60 seconds. Trypan blue was then irrigated away and Viscoat was used to stabilize the anterior chamber. The patient was then asked to rotate his head to his left approximately 45 degrees, and a gonioprism was placed on the eye. Trabecular meshwork was easily identified and a goniotomy using a [employer] Dual Blade goniotomy knife was performed using a [id number] method. A small amount of blood was identified after removing the trabecular meshwork. The patient was rotated in the normal supine position and the remaining viscoelastic as well as some accumulated blood was removed from the anterior chamber. The eye was brought to normal intraocular pressure and 2 drops of 0.5% timolol as well as moxifloxacin was placed on the patient's eye. He was then lightly patched and was shielded in the usual manner. There were no complications of the procedure. He tolerated the procedure well and was returned to [facility] in good condition. MMODL / IJN: [id number] /
== END 2019-04-28 08:35 | disposition home or self-care (01) ==
LOC: OR 06:18
PROVIDERS: ATTEND Ophthalmology
DX: H40.1113 Primary open-angle glaucoma, right eye, severe stage (principal); I25.2 Old myocardial infarction; I48.91 Unspecified atrial fibrillation; I10 Essential (primary) hypertension; E78.5 Hyperlipidemia, unspecified; E11.9 Type 2 diabetes mellitus without complications; F17.290 Nicotine dependence, other tobacco product, uncomplicated; E66.9 Obesity, unspecified; Z95.810 Presence of automatic (implantable) cardiac defibrillator; Z95.5 Presence of coronary angioplasty implant and graft; Z87.442 Personal history of urinary calculi; Z68.38 Body mass index [BMI] 38.0-38.9, adult; Z88.8 Allergy status to other drugs, medicaments and biological substances; Z98.890 Other specified postprocedural states; Z79.82 Long term (current) use of aspirin; Z79.02 Long term (current) use of antithrombotics/antiplatelets; Z79.899 Other long term (current) drug therapy; Z79.84 Long term (current) use of oral hypoglycemic drugs
CPT/HCPCS: 65820; J2250; J2001; J3010

== ENCOUNTER → 2019-06-18 | Outpatient (CLI) | payer MEDICARE, OTHER ==
[2019-06-18 12:23] LABS: Basophils % (A) 1 %; Eosinophils # (A) 0.2 k/uL (0-0.7); Eosinophils % (A) 3 %; HCT 39.5 % (39.0-53.0); HGB 12.9 gm/dL (13.0-17.5); Lymphocytes # (A) 0.9 k/uL (1.0-4.8); Lymphocytes % (A) 15 %; MCH 29.7 pg (25.0-35.0); MCHC 32.5 g/dL (31.0-37.0); MCV 91.1 fL (80.0-100.0); Mean Platelet Volume 6.8; Monocytes # (A) 0.3 k/uL (0-1.0); Monocytes % (A) 5 %; Neutrophils # (A) 4.9 k/uL (1.3-7.7); Neutrophils % (A) 76 %; Platelet Count 279 k/uL (150-450); RBC 4.34 m/uL (4.30-5.90); RDW 12.4 % (11.5-15.5); WBC 6.4 k/uL (3.8-10.6)
[2019-06-18 12:46] LABS: Appearance,Urine Clear (Clear); Bacteria,Urine Rare /hpf; Bilirubin,Urine Negative (Negative); Blood,Urine Moderate (Negative); Color,Urine Yellow; Glucose,Urine (UA) 4+ (Negative); Hyaline Casts,Urine 4 /lpf (0-2); Ketones,Urine Trace (Negative); Leukocyte Esterase,Urine Trace (Negative); Mucus,Urine Rare /hpf; Nitrite,Urine Negative (Negative); Protein,Urine Trace (Negative); RBC,Urine >182 /hpf (0-5); Specific Gravity,Urine 1.023 (1.001-1.035); Squamous Epithelial Cell,Urine <1 /hpf (0-4); Urobilinogen,Urine <2.0 mg/dL (<2.0); WBC,Urine 8 /hpf (0-5)
[2019-06-18 18:37] LABS: % Iron Saturation 34.88 (15.00-50.00); African American GFR (CKD) 36.4 (60.0-200.0); Albumin/Globulin Ratio 2.5 (1.60-3.17); Anion Gap 7.9 mmol/L (4.00-12.00); BUN/Creat Ratio 15.24 Ratio (12.00-20.00); Calcium 9.1 mg/dL (8.7-10.3); Carbon Dioxide 22.1 mmol/L (21.6-31.8); Globulin 1.6 g/dL (1.6-3.3); Magnesium 1.6 mg/dL (1.5-2.4); Non-African American GFR(CKD) 31.4 (60.0-200.0); Total Bilirubin 0.3 mg/dL (0.3-1.2); Total Protein 5.6 g/dL (6.2-8.2); Uric Acid 4.6 mg/dL (3.7-8.7)
[2019-06-18 18:46] LABS: Ferritin 260.5 ng/mL (22.0-322.0)
[2019-06-18 21:25] LABS: Hemoglobin A1C 7.9 % (4.0-6.0)
== END | disposition home or self-care (01) ==
LOC: LABWHC1 11:09
PROVIDERS: ATTEND Nurse Practitioner Family
DX: N18.9 Chronic kidney disease, unspecified (principal); D64.9 Anemia, unspecified; N39.0 Urinary tract infection, site not specified; R80.9 Proteinuria, unspecified; N25.81 Secondary hyperparathyroidism of renal origin; E55.9 Vitamin D deficiency, unspecified; M10.9 Gout, unspecified
CPT/HCPCS: 36415; 80053; 81001; 82043; 82306; 82570; 82728; 83036; 83540; 83550; 83735; 83970; 84100; 84550; 85025

== ENCOUNTER → 2019-11-17 | Outpatient (CLI) | payer MEDICARE, OTHER ==
[2019-11-17 17:29] LABS: African American GFR (CKD) 46.7 (60.0-200.0); Albumin 4.2 g/dL (3.80-4.90); Albumin/Globulin Ratio 2.21 (1.60-3.17); BUN/Creat Ratio 11.76 Ratio (12.00-20.00); Calcium 9.2 mg/dL (8.7-10.3); Chol/HDL Ratio 4.54; Globulin 1.9 g/dL (1.6-3.3); LDL Cholesterol,Calculated 88.2 mg/dL (0.0-131.0); Non-African American GFR(CKD) 40.3 (60.0-200.0); Potassium 4.4 mmol/L (3.5-5.5); Total Bilirubin 0.4 mg/dL (0.2-1.2); Total Protein 6.1 g/dL (6.2-8.2); VLDL Calculation 49.8 mg/dL (5.00-40.00)
[2019-11-17 18:47] LABS: Urine Creatinine 112.9 mg/dL
[2019-11-17 19:03] LABS: Hemoglobin A1C 7.9 % (4.0-6.0)
== END | disposition home or self-care (01) ==
LOC: LABWHC1 08:23
PROVIDERS: ATTEND Internal Medicine Endocrinology, Diabetes & Metabolism
DX: E11.65 Type 2 diabetes mellitus with hyperglycemia (principal)
CPT/HCPCS: 36415; 80053; 80061; 82043; 82570; 83036; 84443

== ENCOUNTER 2019-11-30 15:58 | Inpatient (IN) | payer MEDICARE, OTHER ==
[2019-11-30 16:43] LABS: Budding Yeast,Urine Many /hpf; Mucus,Urine Many /hpf; RBC,Urine >182 /hpf (0-5); WBC,Urine >182 /hpf (0-5)
[2019-11-30 16:46] LABS: Color,Urine Dark Brown
--- NOTE | 2019-11-30 16:53 | ED ---
Male Urogenital HPI - General Chief complaint: Urogenital Stated complaint: Unable to urinate Time Seen by Provider: 11/30/19 16:14 Source: patient Mode of arrival: wheelchair Limitations: no limitations - History of Present Illness Initial comments: Patient is a 69-year-old female with history of renal stones presenting to the emergency department with a chief complaint of a kidney stone. Patient states today he went to visit his urologist, Dr. Dobson, after patient developed kidney leg pain in the left lower back with some radiation to the flank and groin region. Patient reports she also noticed gross hematuria. At the urologist's office, the patient had a KUB that was unremarkable. He was advised to obtain a CT. Patient had obtained a CT of the abdomen and pelvis in the hospital and came to the emergency department for evaluation due to the pain. Patient denies any nausea or vomiting. States the pain comes and goes. States the pain is minimal at the moment. He also reports obstructive urinary symptoms but denies any frequency urgency dysuria. - Related Data Home Medications Medication Instructions Recorded Confirmed Atorvastatin [Lipitor] 80 mg PO HS 04/07/15 11/30/19 amLODIPine [Norvasc] 10 mg PO DAILY 04/07/15 11/30/19 Fenofibrate [Lofibra] 160 mg PO HS 04/30/17 11/30/19 Carvedilol 25 mg PO BID 03/02/18 11/30/19 Apixaban [Eliquis] 5 mg PO BID 11/18/18 11/30/19 Enalapril [Vasotec] 20 mg PO DAILY 11/18/18 11/30/19 Cholecalciferol [Vitamin D3 (25 2,000 unit PO DAILY 04/26/19 11/30/19 Mcg = 1000 Iu)] Ferrous Sulfate [Feosol] 325 mg PO DAILY 04/26/19 11/30/19 Dulaglutide [Trulicity] 1.5 mg SQ MO 11/30/19 11/30/19 Glimepiride [Amaryl] 4 mg PO AC-BID 11/30/19 11/30/19 hydrALAZINE HCL [Apresoline] 100 mg PO TID 11/30/19 11/30/19 Allergies Allergy/AdvReac Type Severity Reaction Status Date / Time losartan potassium Allergy Dyspnea Verified 06/16/20 18:48 [From Jeovanny] Review of Systems ROS Statement: Those systems with pertinent positive or pertinent negative responses have been documented in the HPI. ROS Other: All systems not noted in ROS Statement are negative. Past Medical History Past Medical History: Atrial Fibrillation, Cancer, Diabetes Mellitus, Eye Disorder, GERD/Reflux, Hyperlipidemia, Hypertension, Myocardial Infarction ([place]) Additional Past Medical History / Comment(s): jessica. glaucoma, rt kidney canver Last Myocardial Infarction Date:: 2009 History of Any Multi-Drug Resistant Organisms: None Reported Past Surgical History: Coronary Bypass/CABG, Orthopedic Surgery Additional Past Surgical History / Comment(s): LEFT SHOULDER REPAIR, RIGHT SHOULDER ROTATOR CUFF REPAIR X2 2009, LEFT KNEE CARTILAGE REPAIR 1966, GANGLIAN CYST REMOVED FROM RIGHT WRIST 1994, RIGHT ACHILLES TENDON REPAIR 2006, CLOSED HEAD INJURY ([facility]) WORK RELATED INJURY 1985, jessica cataract surgery, rt kidney removal Past Anesthesia/Blood Transfusion Reactions: No Reported Reaction Type of Cardiac Device: Permanent Pacemaker, AICD Device Placement Date:: 04/10/15 Past Psychological History: No Psychological Hx Reported Smoking Status: Former smoker Past Alcohol Use History: None Reported Past Drug Use History: None Reported - Past Family History Mother Family Medical History: Cancer Father Family Medical History: Coronary Artery Disease (CAD) General Exam Limitations: no limitations General appearance: alert, in no apparent distress, obese Head exam: Present: atraumatic, normocephalic, normal inspection Eye exam: Present: normal appearance, PERRL, EOMI Pupils: Present: normal accommodation ENT exam: Present: normal exam, normal oropharynx, mucous membranes moist. Absent: TM's normal bilaterally, normal external ear exam Neck exam: Present: normal inspection, full ROM. Absent: tenderness Respiratory exam: Present: normal lung sounds bilaterally. Absent: respiratory distress, wheezes, rales Cardiovascular Exam: Present: regular rate, normal rhythm, normal heart sounds GI/Abdominal exam: Present: soft, normal bowel sounds. Absent: distended, tenderness, guarding, rebound Extremities exam: Present: normal inspection, full ROM, normal capillary refill Back exam: Present: normal inspection, full ROM, CVA tenderness (L) (Mild) Neurological exam: Present: alert, oriented X3, normal gait Psychiatric exam: Present: normal affect, normal mood Skin exam: Present: warm, dry, intact, normal color Course Vital Signs 11/30/19 11/30/19 16:07 17:09 Temperature 98.2 F 97.9 F Pulse Rate 58 L 53 L Respiratory 18 16 Rate Blood Pressure 182/91 151/65 O2 Sat by Pulse 97 97 Oximetry Medical Decision Making - Medical Decision Making Patient is a 69-year-old male with history of recurrent renal stones presenting to the emergency department with a chief complaint of renal stone. Patient also reported some obstructive urinary symptoms. Bladder scan revealed 43 mL of postvoid urine. No Beckford catheter was necessary. Patient had a CT obtained prior to ED arrival. CT reveals a 4 mm stone in the bladder with mild her hydroureter and hydronephrosis. Patient has nephrectomy of the right kidney secondary to a neoplasm. CBC is unremarkable. CMP reveals decreased renal function with increasing BUN and creatinine and decrease in GFR. It appears patient has acute kidney injury. Patient started on IV fluids. He did not have any pain on evaluation. Patient will be admitted for further medical management and repeat labs in the morning to monitor renal function. Case discussed with Admitting is Dr. Oconnor - Lab Data Result diagrams: 11/30/19 17:20 11/30/19 17:20 Lab Results 11/30/19 11/30/19 11/30/19 Range/Units 16:27 17:20 17:20 WBC 11.8 H (3.8-10.6) k/uL RBC 4.67 (4.30-5.90) m/uL Hgb 13.7 (13.0-17.5) gm/dL Hct 42.8 (39.0-53.0) % MCV 91.6 (80.0-100.0) fL MCH 29.2 (25.0-35.0) pg MCHC 31.9 (31.0-37.0) g/dL RDW 12.3 (11.5-15.5) % Plt Count 303 (150-450) k/uL Neutrophils % 88 % Lymphocytes % 6 % Monocytes % 5 % Eosinophils % 0 % Basophils % 0 % Neutrophils # 10.3 H (1.3-7.7) k/uL Lymphocytes # 0.7 L (1.0-4.8) k/uL Monocytes # 0.6 (0-1.0) k/uL Eosinophils # 0.1 (0-0.7) k/uL Basophils # 0.0 (0-0.2) k/uL Sodium 135 L (137-145) mmol/L Potassium 5.2 H (3.5-5.1) mmol/L Chloride 105 (98-107) mmol/L Carbon Dioxide 20 L (22-30) mmol/L Anion Gap 10 mmol/L BUN 34 H (9-20) mg/dL Creatinine 2.37 H (0.66-1.25) mg/dL Est GFR (CKD-EPI)AfAm 31 (>60 ml/min/1.73 sqM) Est GFR (CKD-EPI)NonAf 27 (>60 ml/min/1.73 sqM) Glucose 170 H (74-99) mg/dL Calcium 10.0 (8.4-10.2) mg/dL Total Bilirubin 0.6 (0.2-1.3) mg/dL AST 26 (17-59) U/L ALT 21 (4-49) U/L Alkaline Phosphatase 58 (38-126) U/L Total Protein 7.1 (6.3-8.2) g/dL Albumin 4.3 (3.5-5.0) g/dL Urine Color Dark Brown Urine Appearance Bloody (Clear) Urine RBC >182 H (0-5) /hpf Urine WBC >182 H (0-5) /hpf Urine WBC Clumps Many H (None) /hpf Urine Mucus Many H (None) /hpf Urine Yeast (Budding) Many H (None) /hpf Disposition Clinical Impression: Acute kidney injury, Nephrolithiasis, Gross hematuria Disposition: ADMITTED IP TO THIS [facility] Condition: Good Is patient prescribed a controlled substance at d/c from ED?: No Time of Disposition: 17:09
[2019-11-30 16:57] LABS: Appearance,Urine Bloody (Clear)
[2019-11-30 17:44] LABS: Basophils % (A) 0 %; Eosinophils # (A) 0.1 k/uL (0-0.7); Eosinophils % (A) 0 %; HCT 42.8 % (39.0-53.0); HGB 13.7 gm/dL (13.0-17.5); Lymphocytes # (A) 0.7 k/uL (1.0-4.8); Lymphocytes % (A) 6 %; MCH 29.2 pg (25.0-35.0); MCHC 31.9 g/dL (31.0-37.0); MCV 91.6 fL (80.0-100.0); Mean Platelet Volume 6.7; Monocytes # (A) 0.6 k/uL (0-1.0); Monocytes % (A) 5 %; Neutrophils # (A) 10.3 k/uL (1.3-7.7); Neutrophils % (A) 88 %; Platelet Count 303 k/uL (150-450); RBC 4.67 m/uL (4.30-5.90); RDW 12.3 % (11.5-15.5); WBC 11.8 k/uL (3.8-10.6)
[2019-11-30 17:46] LABS: Albumin 4.3 g/dL (3.5-5.0); Potassium 5.2 mmol/L (3.5-5.1); Total Bilirubin 0.6 mg/dL (0.2-1.3); Total Protein 7.1 g/dL (6.3-8.2)
[2019-11-30] MEDS ORDERED: SODIUM CHLORIDE 0.9% 1,000 ML IV STA (18:04)
[2019-11-30] MEDS ORDERED: cefTRIAXone IN SWFI 1,000 MG/10 ML SYRINGE IVP STA (18:04)
[2019-11-30] MEDS ORDERED: HYDROcodone/APAP 5-325MG 1 EACH TAB PO PRN (18:05)
[2019-11-30] MEDS ORDERED: ONDANSETRON 4 MG/2 ML VIAL IVP PRN (18:05)
[2019-11-30] MEDS ORDERED: HYDROmorphone 0.5 MG/0.5 ML SYRINGE IVP PRN (18:05)
[2019-11-30] MEDS ORDERED: NALOXONE 0.4 MG/ML 1 ML VIAL IV PRN (18:05)
[2019-11-30] MEDS ORDERED: MORPHINE SULFATE 4 MG/ML SYRINGE IV PRN (18:05)
[2019-11-30] MEDS ORDERED: ACETAMINOPHEN TAB 325 MG TAB PO PRN (18:05)
[2019-11-30] MEDS ORDERED: LORazepam 2 MG/ML INJ IV PRN (18:05)
[2019-11-30] MEDS: SODIUM CHLORIDE 0.9% 1,000 ML IV SCH (19:28)
--- NOTE | 2019-11-30 23:59 | P.HPIM ---
History of Present Illness H&P Date: 11/30/19 Chief Complaint: left flank pain , kidney stone 69 year old male with afib s/p pacemaker on eliquis , DM on oral hypoglycemic agents, hypertension on multiple medications. and history of right renal cancer s/p nephrectomy and history of left renal stone patient comes in with one day history of sudden onset left flank pain , non radiating, colicky in nature, 10/10 in severity , not associated with any nausea or vomiting, no fevers, or chills, then he experienced hematuria (he was sitting when urinated and not sure when the bloody stream started) denies any dysuria , he went to his doctor as he suspected kidney stone, due to the pain and hematuria . he had a CT of the abd done which confirmed the diagnosis. then he came to the hospital for further evaluation and pain control . he reports history of right nephrectomy after finding renal cancer. blood work showed elevated white count, and elevated creatinine . CT of the abd did notice, bladder vs distal uretral stone, with left hydronephrosis and left hydroureter. Review of Systems Pertinent positives as noted in HPI. All other systems were reviewed and are negative Past Medical History Past Medical History: Atrial Fibrillation, Cancer, Diabetes Mellitus, Eye Disorder, GERD/Reflux, Hyperlipidemia, Hypertension, Myocardial Infarction ([place]) Additional Past Medical History / Comment(s): jessica. glaucoma, rt kidney canver Last Myocardial Infarction Date:: 2009 History of Any Multi-Drug Resistant Organisms: None Reported Past Surgical History: Coronary Bypass/CABG, Orthopedic Surgery Additional Past Surgical History / Comment(s): LEFT SHOULDER REPAIR, RIGHT SHOULDER ROTATOR CUFF REPAIR X2 2009, LEFT KNEE CARTILAGE REPAIR 1966, GANGLIAN CYST REMOVED FROM RIGHT WRIST 1994, RIGHT ACHILLES TENDON REPAIR 2006, CLOSED HEAD INJURY ([facility]) WORK RELATED INJURY 1985, jessica cataract surgery, rt kidney removal Past Anesthesia/Blood Transfusion Reactions: No Reported Reaction Type of Cardiac Device: Permanent Pacemaker, AICD Device Placement Date:: 04/10/15 Past Psychological History: No Psychological Hx Reported Smoking Status: Former smoker Past Alcohol Use History: None Reported Past Drug Use History: None Reported - Past Family History Mother Family Medical History: Cancer Father Family Medical History: Coronary Artery Disease (CAD) Medications and Allergies Home Medications Medication Instructions Recorded Confirmed Type Atorvastatin [Lipitor] 80 mg PO HS 04/07/15 11/30/19 History amLODIPine [Norvasc] 10 mg PO DAILY 04/07/15 11/30/19 History Fenofibrate [Lofibra] 160 mg PO HS 04/30/17 11/30/19 History Carvedilol 25 mg PO BID 03/02/18 11/30/19 History Apixaban [Eliquis] 5 mg PO BID 11/18/18 11/30/19 History Enalapril [Vasotec] 20 mg PO DAILY 11/18/18 11/30/19 History Cholecalciferol [Vitamin D3 (25 2,000 unit PO DAILY 04/26/19 11/30/19 History Mcg = 1000 Iu)] Ferrous Sulfate [Feosol] 325 mg PO DAILY 04/26/19 11/30/19 History Dulaglutide [Trulicity] 1.5 mg SQ MO 11/30/19 11/30/19 History Glimepiride [Amaryl] 4 mg PO AC-BID 11/30/19 11/30/19 History hydrALAZINE HCL [Apresoline] 100 mg PO TID 11/30/19 11/30/19 History Allergies Allergy/AdvReac Type Severity Reaction Status Date / Time losartan potassium Allergy Dyspnea Verified 11/30/19 18:48 [From Cozaar] Physical Exam Vitals: Vital Signs Temp Pulse Resp BP Pulse Ox 11/30/19 17:09 97.9 F 53 L 16 151/65 97 11/30/19 16:07 98.2 F 58 L 18 182/91 97 Intake and Output 11/30/19 11/30/19 11/30/19 06:59 14:59 22:59 Other: Weight 136.078 kg Constitutional: No acute distress, conversant, pleasant Eyes: Anicteric sclerae, moist conjunctiva, no lid-lag Pupils equal round reactive to light ENMT: NC/AT Oropharynx clear, no erythema, or exudates Neck: Supple, FROM, no masses, or JVD No carotid bruits No thyromegaly Lungs: Clear to auscultation Clear to percussion Normal respiratory effort, no accessory muscle use Cardiovascular: Heart regular in rate and rhythm, No murmurs, gallops, or rubs No peripheral edema Abdominal: Soft Nontender, no guarding, rebound or rigidity Abdomen moving with respiration Normoactive bowel sounds No hepatomegaly, No splenomegaly No palpable mass No abdominal wall hernia noted Skin: Normal temperature, tone, texture, turgor No induration No subcutaneous nodules No rash, lesions No ulcers Extremities: No digital cyanosis No clubbing Pedal pulses intact and symmetrical Radial pulses intact and symmetrical No calf tenderness Psychiatric: Alert and oriented to person, place and time Appropriate affect fair judgement Neuro Muscles Strength 5/5 in all 4 extremities Sensation to light touch grossly present throughout Cranial nerves II-XII grossly intact No focal sensory deficits Lymphatics: no palpable cervical or supraclavicular , or inguinal lymph nodes Results CBC & Chem 7: 11/30/19 17:20 11/30/19 17:20 Labs: Abnormal Lab Results - Last 24 Hours (Table) 11/30/19 11/30/19 11/30/19 Range/Units 16:27 17:20 17:20 WBC 11.8 H (3.8-10.6) k/uL Neutrophils # 10.3 H (1.3-7.7) k/uL Lymphocytes # 0.7 L (1.0-4.8) k/uL Sodium 135 L (137-145) mmol/L Potassium 5.2 H (3.5-5.1) mmol/L Carbon Dioxide 20 L (22-30) mmol/L BUN 34 H (9-20) mg/dL Creatinine 2.37 H (0.66-1.25) mg/dL Glucose 170 H (74-99) mg/dL Urine RBC >182 H (0-5) /hpf Urine WBC >182 H (0-5) /hpf Urine WBC Clumps Many H (None) /hpf Urine Mucus Many H (None) /hpf Urine Yeast (Budding) Many H (None) /hpf Assessment and Plan Assessment: left obstructive uropathy 2/2 uretral stone Acute kidney injury on CKD left hydroureter and moderate hydronephrosis pain control with opioide IVF hydration avoid nephrotoxic meds ACEI on hold flomax rocephine daily strain the urine urology consutl monitor urine output (avoid post obstructive polyuria ) chronic conditions hypertension , resume home meds, ACEI on hold due to GALLO DM, on insulin sliding scale , check A1C afib s/p pacemaker , hold eliquis due to hematuria CODE STATUS:full code DVT prophylaxis: on eliquis currently on hold due to hematuria , mechanical DVT PPX Discussed with: Patient, ER, RN Anticipated length of stay < than [address]: home A total of 65 minutes was spent on the care of this complex patient more than 50% of the time was spent in counseling and care coordination.
[2019-12-01 00:04] LABS: Glucose,Whole Blood 213 mg/dL (75-99)
[2019-12-01] MEDS: hydrALAZINE HCL 50 MG TAB PO SCH ×3 (00:31→16:03)
[2019-12-01] MEDS: CARVEDILOL 12.5 MG TAB PO SCH ×3 (00:31→17:47)
[2019-12-01] MEDS: INSULIN ASPART (NovoLOG) 100 UNIT/ML VIAL SQ SCH ×4 (00:32→17:44)
[2019-12-01] MEDS: TAMSULOSIN 0.4 MG CAP.ER.24H PO SCH ×2 (00:32→08:51)
[2019-12-01 06:50] LABS: Glucose,Whole Blood 100 mg/dL (75-99)
[2019-12-01 06:54] LABS: Basophils % (A) 0 %; Eosinophils # (A) 0.1 k/uL (0-0.7); Eosinophils % (A) 2 %; HCT 38.3 % (39.0-53.0); HGB 12.8 gm/dL (13.0-17.5); Lymphocytes # (A) 1.5 k/uL (1.0-4.8); Lymphocytes % (A) 22 %; MCH 30.9 pg (25.0-35.0); MCHC 33.4 g/dL (31.0-37.0); MCV 92.5 fL (80.0-100.0); Mean Platelet Volume 6.7; Monocytes # (A) 0.5 k/uL (0-1.0); Monocytes % (A) 7 %; Neutrophils # (A) 4.5 k/uL (1.3-7.7); Neutrophils % (A) 68 %; Platelet Count 287 k/uL (150-450); RBC 4.14 m/uL (4.30-5.90); RDW 12.4 % (11.5-15.5); WBC 6.7 k/uL (3.8-10.6)
[2019-12-01 07:00] LABS: Calcium 9.2 mg/dL (8.4-10.2); Potassium 4.8 mmol/L (3.5-5.1)
[2019-12-01] MEDS ORDERED: GLIMEPIRIDE 4 MG TAB PO SCH (07:30)
[2019-12-01 08:33] VITALS: RESP 17
[2019-12-01] MEDS: SODIUM CHLORIDE 0.9% 1,000 ML IV SCH (08:44)
[2019-12-01] MEDS ORDERED: amLODIPine 10 MG TAB PO SCH (09:00)
[2019-12-01] MEDS ORDERED: APIXABAN 5 MG TAB PO SCH (09:00)
[2019-12-01] MEDS ORDERED: CHOLECALCIFEROL 1,000 UNIT TAB PO SCH (09:00)
[2019-12-01 11:24] LABS: Glucose,Whole Blood 219 mg/dL (75-99)
--- NOTE | 2019-12-01 12:33 | US ---
EXAMINATION TYPE: US kidneys/renal and bladder DATE OF EXAM: 12/01/2019 COMPARISON: CT November 30, 2019 CLINICAL HISTORY: hydronephrosis. Right nephrectomy; GALLO; nephrolithiasis EXAM MEASUREMENTS: Right Kidney: surgically removed 2019 per patient Left Kidney: 14.0 x 6.7 x 6.4 cm Post Void Residual Volume: not assessed on inpatient Left Kidney: small amount of mid pole fluid is noted in sinus. Bladder: patient stated just voided few minutes prior to US, and bladder wall is noted thickened as i s measuring greater than 0.5cm with partial bladder distention. Left Jet not seen within 3 minutes of observation. While scanning right renal bed adjacent liver is heterogeneously hyperechoic consistent with diffuse fatty infiltration. Bladder not greatly distended making evaluation suboptimal. Left kidney shows lonny e lobulation without hydronephrosis or concerning left-sided renal mass. IMPRESSION: Absent right kidney. No left-sided hydronephrosis. Possible lower calyx 5 mm calcificatio n or calculus on CT not clearly identified on ultrasound
[2019-12-01 14:16] VITALS: BP 124/69; PULSE 55; TEMP 98.1
[2019-12-01 16:37] LABS: Glucose,Whole Blood 112 mg/dL (75-99)
--- NOTE | 2019-12-01 17:27 | P.DS ---
Providers Date of admission: 12/01/19 15:12 Expected date of discharge: 12/01/19 Attending physician: Del Butler MD Consults: 12/01/19 09:38 Consult Physician Routine Consulting Provider: Leonardo Barragan Consult Reason/Comments: Obstructive uropathy Do you want consulting provider notified?: Yes Primary care physician: Anamika Cox Hospital Course: Discharge Diagnosis: Left urethral lithiasis Moderate hydroureter with mild left hydronephrosis Obesity with BMI 36.9 Diabetes A total fibrillation on Eliquis History of renal cell carcinoma Hospital Course: Patient is a 69-year-old male with A. fib status post pacemaker on Eliquis, prior renal cell carcinoma status post nephrectomy, diabetes on oral m edications, and hypertension who presented to the emergency department secondary to flank pain and hematuria. He had undergone an outpatient computed tomography scan ordered by Dr. Barragan earlier on 11/30/19 which showed a 0.4 cm calcification in the urinary bladder that could be within the distal ureterocele and a moderate hydroureter with mild left hydronephrosis. Laboratory analysis showed mild leukocytosis at 11.8. He was found to have mild increased creatinine at 2.37 with a baseline of 2.1 and potassium 5.2. He was admitted and started on IV fluids and Flomax. His hematuria resolved. His flank pain resolved. He underwent a bladder and renal ultrasound which showed resolution of his hydronephrosis. He is determined medically stable for discharge. He will follow up with Dr. Dozier and Dr. Barragan in outpatient setting. Urine culture pending on discharge and started on keflex. Patient was initially admitted as inpatient, however he improved faster than anticipated and was determined stable for discharge. Patient seen and examined at bedside. Pain is resolved, no difficulty urinating, hematuria resolved coming feeling back to his normal self. Vital signs reviewed and stable. General: non toxic, no distress, appears at stated age Derm: warm, dry Head: atraumatic, normocephalic, symmetric Eyes: EOMI, no lid lag, anicteric sclera Mouth: no lip lesion, mucus membranes moist Cardiovascular: S1S2 reg, no murmur, positive posterior tibial pulse bilateral, Lungs: CTA bilateral, no rhonchi, no rales , no accessory muscle use Abdominal: soft, nontender to palpation, no guarding, no appreciable organomegaly Ext: no gross muscle atrophy, no edema, no contractures Neuro: CN II-XI grossly intact, no focal neuro deficits Psych: Alert, oriented, appropriate affect A total of 25 minutes of time were spent preparing this complex discharge summary . Patient Condition at Discharge: Good Plan - Discharge Summary New Discharge Prescriptions: New Tamsulosin [Flomax] 0.4 mg PO PC-BRKFST #7 cap.er.24h Acetaminophen Tab [Tylenol] 650 mg PO Q6HR PRN tab PRN Reason: Mild Pain Or Fever > 100.5 Cephalexin [Keflex] 500 mg PO Q12HR 3 Days #6 cap Continue amLODIPine [Norvasc] 10 mg PO DAILY Atorvastatin [Lipitor] 80 mg PO HS Fenofibrate [Lofibra] 160 mg PO HS Carvedilol 25 mg PO BID Apixaban [Eliquis] 5 mg PO BID Ferrous Sulfate [Iron (65 MG Elemental)] 325 mg PO DAILY Cholecalciferol [Vitamin D3 (25 Mcg = 1000 Iu)] 2,000 unit PO DAILY hydrALAZINE HCL [Apresoline] 100 mg PO TID Glimepiride [Amaryl] 4 mg PO AC-BID Dulaglutide [Trulicity] 1.5 mg SQ MO Discontinued Enalapril [Vasotec] 20 mg PO DAILY Discharge Medication List Atorvastatin [Lipitor] 80 mg PO HS 04/07/15 [History] amLODIPine [Norvasc] 10 mg PO DAILY 04/07/15 [History] Fenofibrate [Lofibra] 160 mg PO HS 04/30/17 [History] Carvedilol 25 mg PO BID 03/02/18 [History] Apixaban [Eliquis] 5 mg PO BID 11/18/18 [History] Cholecalciferol [Vitamin D3 (25 Mcg = 1000 Iu)] 2,000 unit PO DAILY 04/26/19 [Hi story] Ferrous Sulfate [Iron (65 MG Elemental)] 325 mg PO DAILY 04/26/19 [History] Dulaglutide [Trulicity] 1.5 mg SQ MO 11/30/19 [History] Glimepiride [Amaryl] 4 mg PO AC-BID 11/30/19 [History] hydrALAZINE HCL [Apresoline] 100 mg PO TID 11/30/19 [History] Acetaminophen Tab [Tylenol] 650 mg PO Q6HR PRN tab 12/01/19 [Rx] Cephalexin [Keflex] 500 mg PO Q12HR 3 Days #6 cap 12/01/19 [Rx] Tamsulosin [Flomax] 0.4 mg PO PC-BRKFST #7 cap.er.24h 12/01/19 [Rx] Follow up Appointment(s)/Referral(s): Anamika Cox MD [Primary Care Provider] - 1-2 days Leonardo Barragan MD [STAFF PHYSICIAN] - 1 Week Activity/Diet/Wound Care/Special Instructions: Activity: as tolerated Diet: carb consistent Special Instructions: Do not take your enalapril until seen by Dr. Cox Follow-up with either Dr. Guzman or Dr. Barragan Discharge Disposition: HOME SELF-CARE
[2019-12-01] MEDS ORDERED: ATORVASTATIN 80 MG TAB PO SCH (21:00)
--- NOTE | 2019-12-02 11:11 | CDI ---
Documentation Clarification Form Date: 12/02/19 From: Gertrude Ramsey Phone: If you have a question about this query, please contact Kyra Mckeon, Candy Packer at [phone] between 8am and 5pm. Admit Date: 12/01/19 Discharge Date: 12/01/19 Patient Name: GARRY CARRILLO Visit Number:[id number] ATTENTION: The Clinical Documentation Specialists (CDI) and [facility] Coding Staff appreciate your assistance in clarifying documentation. Please respond to the clarification below the line at the bottom and electronically sign. The CDI & [facility] Coding staff will review the response and follow-up if needed. Please note: Queries are made part of the Legal Health Record. If you have any questions, please contact the author of this message via ITS. Dear Dr. Beatrice Martin, Atrial Fibrillation is documented in the ED note, H&P and DS. History/Risk Factors: hydronephrosis w renal and ureteral calculus obstruction, GALLO, DM, HTN w CKD, hyperlipidemia, hyperkalemia Clinical Indicators: Hx of atrial fibrillation treated with Eliquis. EKG/telemetry: none In your professional opinion, can you please clarify the type of Atrial Fibrillation, if known? Chronic Permanent Paroxysmal Persistent, longstanding Persistent, other Persistent, permanent Other, please specify Unable to determine Paroxysmal MTDD
--- NOTE | 2019-12-02 11:21 | CDI ---
Documentation Clarification Form Date: 12/02/19 From: Gertrude Ramsey Phone: If you have a question about this query, please contact Kyra Mckeon, Scroll Saw Operator at [phone] between 8am and 5pm. Admit Date: 12/01/19 Discharge Date: 12/01/19 Patient Name: GARRY CARRILLO Visit Number:[id number] ATTENTION: The Clinical Documentation Specialists (CDI) and [facility] Coding Staff appreciate your assistance in clarifying documentation. Please respond to the clarification below the line at the bottom and electronically sign. The CDI & [facility] Coding staff will review the response and follow-up if needed. Please note: Queries are made part of the Legal Health Record. If you have any questions, please contact the author of this message via ITS. Dear Dr. Beatrice Martin, CKD is documented in the H&P. History/Risk Factors: hydronephrosis w renal and ureteral calculus obstruction, GALLO, DM, HTN w CKD, hyperlipidemia, hyperkalemia, atrial fibrillation Clinical Indicators: 11/29-11/30 Current BUN:34, 30 Current CR: 2.37, 2.17 Current GFR: 27, 30 Treatment: IV fluids, In order to capture the severity of condition, please clarify the stage of the CKD, if known: CKD Stage 1 (GFR > 90) CKD Stage 2 (GFR 60-89) CKD Stage 3 (GFR 30-59) CKD Stage 4 (GFR 15-29) CKD Stage 5 (GFR <15) ESRD Other, please specify GALLO on CKD III MTDD
== END 2019-12-01 18:11 | disposition home or self-care (01) | DRG 694 ==
LOC: EC 15:58 → 4SSUR 18:15 → OBSVTOIN 12-01 15:12
PROVIDERS: ADMIT Family Medicine; ATTEND Family Medicine
DX: N13.2 Hydronephrosis with renal and ureteral calculous obstruction (principal); N17.9 Acute kidney failure, unspecified; E11.22 Type 2 diabetes mellitus with diabetic chronic kidney disease; N18.3 Chronic kidney disease, stage 3 (moderate); I48.0 Paroxysmal atrial fibrillation; E11.39 Type 2 diabetes mellitus with other diabetic ophthalmic complication; I12.9 Hypertensive chronic kidney disease with stage 1 through stage 4 chronic kidney disease, or unspecified chronic kidney disease; E87.5 Hyperkalemia; N21.0 Calculus in bladder; Z11.59 Encounter for screening for other viral diseases; E78.5 Hyperlipidemia, unspecified; I25.2 Old myocardial infarction; H40.9 Unspecified glaucoma; H42 Glaucoma in diseases classified elsewhere; K21.9 Gastro-esophageal reflux disease without esophagitis; E66.9 Obesity, unspecified; Z68.36 Body mass index [BMI] 36.0-36.9, adult; Z79.01 Long term (current) use of anticoagulants; Z79.84 Long term (current) use of oral hypoglycemic drugs; Z79.899 Other long term (current) drug therapy; Z95.810 Presence of automatic (implantable) cardiac defibrillator; Z87.442 Personal history of urinary calculi; Z90.5 Acquired absence of kidney; Z85.528 Personal history of other malignant neoplasm of kidney; Z95.1 Presence of aortocoronary bypass graft; Z87.891 Personal history of nicotine dependence; Z87.820 Personal history of traumatic brain injury; Z98.42 Cataract extraction status, left eye; Z98.41 Cataract extraction status, right eye; Z98.890 Other specified postprocedural states; Z88.8 Allergy status to other drugs, medicaments and biological substances; Z82.49 Family history of ischemic heart disease and other diseases of the circulatory system
CPT/HCPCS: 36415; 51798; 74018; 74176; 76770; 80048; 80053; 81001; 85025; 87086; 96361; 96374; 99285

== ENCOUNTER → 2019-11-30 | Outpatient (CLI) | payer MEDICARE, OTHER ==
--- NOTE | 2019-11-30 12:11 | XR ---
EXAMINATION TYPE: XR KUB DATE OF EXAM: 11/30/2019 COMPARISON: 10/14/2018 INDICATION: Flank pain TECHNIQUE: Single view abdomen frontal projection with multiple images FINDINGS: There is a normal bowel gas pattern. Psoas margins are normal. No organomegaly is present. No suspicious calcifications are evident. Surgical clips are present on the right. IMPRESSION: 1. Unremarkable Abdomen
== END | disposition home or self-care (01) ==
LOC: RADXRMAIN 11:27
PROVIDERS: ATTEND Urology
DX: N20.0 Calculus of kidney (principal)
CPT/HCPCS: 74018

== ENCOUNTER → 2019-11-30 | Outpatient (CLI) | payer MEDICARE, OTHER ==
--- NOTE | 2019-11-30 16:45 | CT ---
EXAMINATION TYPE: CT abdomen pelvis wo con DATE OF EXAM: 11/30/2019 COMPARISON: 10/27/2018 INDICATION: Left sided flank pain and gross hematuria. DLP: 1250 mGycm, Automated exposure control for dose reduction was used. CONTRAST: 0 mL of Isovue 300. Study performed without Oral Contrast TECHNIQUE: Axial images were obtained from above the diaphragm to the pubic rami in the axial plane a t 5 mm thick sections. Reconstructed images are reviewed on the computer in the coronal plane. FINDINGS: Limited CT sections are obtained the lung bases. There is a moderate size hiatal hernia. Lung window s are clear. CT ABDOMEN: Liver: Normal Spleen: Normal Pancreas: Normal Adrenal glands: The adrenal glands are normal. Gallbladder: Normal Kidneys: Right kidney is absent. This is an interval nephrectomy. No masses are evident. There is mil d hydronephrosis. Moderate hydroureter is present extending to the urinary bladder. Calcification is within the urinary bladder measures 0.4 cm. Recent passage of a stone is most likely within the diffe rential. Calcification within a ureterocele could be considered. No cysts are present. There is a 0. 4 cm nonobstructing mid left renal pole calcification. Aorta: Vascular calcification is within the aorta. Inferior vena cava: Normal. CT PELVIS: Diverticulosis without acute diverticulitis sigmoid colon is present. Small bowel loops without contr ast appear unremarkable. Colon extends into the right renal bed. The studies performed without oral c ontrast limiting bowel evaluation. Appendix: Normal as visualized. Urinary bladder: Decompressed with limited evaluation. Calcification is present which may be calcific ation within the left ureterovesical junction ureterocele or is a free calcification with recent pass age of stone. Genitourinary structures: Prostate is prominent. Osseous structures: No suspicious lytic or sclerotic lesions. IMPRESSIONS: 1. 0.4 cm calcification within the urinary bladder. This could be within the distal ureterocele. 2. Moderate hydroureter and mild left hydronephrosis. 3. Interval right nephrectomy.
== END | disposition home or self-care (01) ==
LOC: RADCTMAIN 15:19
PROVIDERS: ATTEND Urology
DX: N32.89 Other specified disorders of bladder (principal); N13.30 Unspecified hydronephrosis; Z90.5 Acquired absence of kidney; N13.4 Hydroureter; Z88.8 Allergy status to other drugs, medicaments and biological substances
CPT/HCPCS: 74176

== ENCOUNTER 2020-02-11 20:45 | Observation (INO) | payer MEDICARE, OTHER ==
[2020-02-11] MEDS ORDERED: SODIUM CHLORIDE 0.9% 1,000 ML IV ONE (21:41)
--- NOTE | 2020-02-11 21:52 | ED ---
General Adult HPI - General Chief complaint: Abdominal Pain Stated complaint: Poss Kidney Stone Time Seen by Provider: 02/11/20 21:13 Source: patient, family Mode of arrival: ambulatory Limitations: no limitations - History of Present Illness Initial comments: 69-year-old male presents the emergency department tonight with complaints of left flank pain and hematuria onset 1800 today. Reports history of known kidney stone and states this pain is similar to prior episodes of kidney stones. Patient also had recent diagnosis of renal cancer on the right side he is status post nephrectomy. Denies nausea and vomiting. States he took 50 mg of tramadol prior to arrival with some improvement in pain. Patient denies any recent rash, fever, chills, cough, shortness of breath, chest pain, abdominal pain, diarrhea, constipation, numbness, tingling, dizziness, weakness, urinary urgency, urinary frequency, headache, visual changes, or any other complaints. - Related Data Home Medications Medication Instructions Recorded Confirmed Atorvastatin [Lipitor] 80 mg PO HS 04/07/15 02/11/20 amLODIPine [Norvasc] 10 mg PO DAILY 04/07/15 02/11/20 Fenofibrate [Lofibra] 160 mg PO HS 04/30/17 02/11/20 carvediloL [Carvedilol] 25 mg PO BID 03/02/18 02/11/20 Apixaban [Eliquis] 5 mg PO BID 11/18/18 02/11/20 Cholecalciferol [Vitamin D3 (25 2,000 unit PO DAILY 04/26/19 02/11/20 Mcg = 1000 Iu)] Ferrous Sulfate [Iron (65 MG 325 mg PO DAILY 04/26/19 02/11/20 Elemental)] Glimepiride [Amaryl] 4 mg PO AC-BID 11/30/19 02/11/20 hydrALAZINE HCL [Apresoline] 100 mg PO TID 11/30/19 02/11/20 Allergies Allergy/AdvReac Type Severity Reaction Status Date / Time losartan potassium Allergy Dyspnea Verified 02/11/20 22:26 [From Jeovanny] Review of Systems ROS Statement: Those systems with pertinent positive or pertinent negative responses have been documented in the HPI. ROS Other: All systems not noted in ROS Statement are negative. Past Medical History Past Medical History: Atrial Fibrillation, Cancer, Diabetes Mellitus, Eye Disorder, GERD/Reflux, Hyperlipidemia, Hypertension, Myocardial Infarction ([place]) Additional Past Medical History / Comment(s): jessica. glaucoma, rt kidney cancer Last Myocardial Infarction Date:: 2009 History of Any Multi-Drug Resistant Organisms: None Reported Past Surgical History: Coronary Bypass/CABG, Orthopedic Surgery Additional Past Surgical History / Comment(s): LEFT SHOULDER REPAIR, RIGHT SHOULDER ROTATOR CUFF REPAIR X2 2009, LEFT KNEE CARTILAGE REPAIR 1966, GANGLIAN CYST REMOVED FROM RIGHT WRIST 1994, RIGHT ACHILLES TENDON REPAIR 2006, CLOSED HEAD INJURY ([facility]) WORK RELATED INJURY 1985, jessica cataract surgery, rt kidney removal Past Anesthesia/Blood Transfusion Reactions: No Reported Reaction Type of Cardiac Device: Permanent Pacemaker, AICD Device Placement Date:: 04/10/15 Past Psychological History: No Psychological Hx Reported Smoking Status: Never smoker Past Alcohol Use History: None Reported Past Drug Use History: None Reported - Past Family History Mother Family Medical History: Cancer Father Family Medical History: Coronary Artery Disease (CAD) General Exam Limitations: no limitations General appearance: alert, in no apparent distress, other (well-nourished, well- developed adult male in no acute distress. Temperature 98.1, pulse 61, respirations 16, blood pressure 154/78, pulse ox 95% on room air) Head exam: Present: atraumatic, normocephalic, normal inspection Eye exam: Present: normal appearance, PERRL. Absent: scleral icterus, conjunctival injection, periorbital swelling ENT exam: Present: normal exam, mucous membranes moist Respiratory exam: Present: normal lung sounds bilaterally. Absent: respiratory distress, wheezes, rales, rhonchi, stridor Cardiovascular Exam: Present: regular rate, normal rhythm, normal heart sounds. Absent: systolic murmur, diastolic murmur, rubs, gallop, clicks GI/Abdominal exam: Present: soft, normal bowel sounds. Absent: distended, tende rness, guarding, rebound, rigid exam: Present: other (hematuria present) Extremities exam: Present: normal inspection, full ROM, normal capillary refill. Absent: tenderness, pedal edema, joint swelling, calf tenderness Back exam: Present: CVA tenderness (L) Neurological exam: Present: alert, oriented X3, CN II-XII intact Psychiatric exam: Present: normal affect, normal mood Skin exam: Present: warm, dry, intact, normal color. Absent: rash Course Vital Signs 02/11/20 02/12/20 21:00 00:31 Temperature 98.1 F Pulse Rate 61 60 Respiratory 16 18 Rate Blood Pressure 154/78 183/81 O2 Sat by Pulse 95 95 Oximetry Medical Decision Making - Medical Decision Making 69-year-old male patient with past medical history significant for right-sided nephrectomy and kidney stones presented to the emergency department today for evaluation of left flank pain. Physical examination did reveal left CVA tenderness. Labs reviewed and did reveal elevated BUN and creatinine which is consistent with his history. Remainder of labs are unremarkable. Computed tomography scan was obtained and did show 2 obstructing stones in the left ur eter. Given patient's history of renal failure and nephrectomy will admit to the hospital for further evaluation by urology. Patient is agreeable with this plan. - Lab Data Result diagrams: 02/11/20 21:44 02/11/20 21:44 Lab Results 02/11/20 02/11/20 02/11/20 Range/Units 21:44 21:44 21:44 WBC 8.3 (3.8-10.6) k/uL RBC 4.58 (4.30-5.90) m/uL Hgb 13.7 (13.0-17.5) gm/dL Hct 41.5 (39.0-53.0) % MCV 90.6 (80.0-100.0) fL MCH 29.8 (25.0-35.0) pg MCHC 32.9 (31.0-37.0) g/dL RDW 12.4 (11.5-15.5) % Plt Count 297 (150-450) k/uL Neutrophils % 72 % Lymphocytes % 19 % Monocytes % 6 % Eosinophils % 2 % Basophils % 1 % Neutrophils # 5.9 (1.3-7.7) k/uL Lymphocytes # 1.6 (1.0-4.8) k/uL Monocytes # 0.5 (0-1.0) k/uL Eosinophils # 0.2 (0-0.7) k/uL Basophils # 0.1 (0-0.2) k/uL Sodium 134 L (137-145) mmol/L Potassium 4.5 (3.5-5.1) mmol/L Chloride 105 (98-107) mmol/L Carbon Dioxide 19 L (22-30) mmol/L Anion Gap 10 mmol/L BUN 32 H (9-20) mg/dL Creatinine 1.96 H (0.66-1.25) mg/dL Est GFR (CKD-EPI)AfAm 39 (>60 ml/min/1.73 sqM) Est GFR (CKD-EPI)NonAf 34 (>60 ml/min/1.73 sqM) Glucose 195 H (74-99) mg/dL Calcium 9.6 (8.4-10.2) mg/dL Total Bilirubin 0.4 (0.2-1.3) mg/dL AST 24 (17-59) U/L ALT 18 (4-49) U/L Alkaline Phosphatase 68 (38-126) U/L Total Protein 6.7 (6.3-8.2) g/dL Albumin 4.1 (3.5-5.0) g/dL Lipase 174 (23-300) U/L Urine Color Red Urine Appearance Cloudy (Clear) Urine pH 5.5 (5.0-8.0) Ur Specific [place] 1.018 (1.001-1.035) Urine Protein 1+ H (Negative) Urine Glucose (UA) Trace H (Negative) Urine Ketones Trace H (Negative) Urine Blood Large H (Negative) Urine Nitrite Negative (Negative) Urine Bilirubin Negative (Negative) Urine Urobilinogen <2.0 (<2.0) mg/dL Ur Leukocyte Esterase Moderate H (Negative) Urine RBC >182 H (0-5) /hpf Urine WBC 24 H (0-5) /hpf Urine Mucus Rare H (None) /hpf - Radiology Data Radiology results: report reviewed, image reviewed KUB was obtained. Report reviewed in its entirety. Impression by Dr. Stark shows nonacute abdomen. Previous surgery. No change. CT abdomen and pelvis without contrast was obtained. Report is reviewed in its entirety. Impression by Dr. Stark shows 2 obstructing calculi in the distal left ureter with left-sided hydronephrosis and hydroureter. There is 4 mm calculus lower pole left kidney. There is normal appendix. Obstruction of the left kidney is similar to the old computed tomography scan. Calculus at the left ureterovesical junction on the old computed tomography scan could be still in the same location on today's exam. Disposition Clinical Impression: History of nephrectomy, right, Kidney stone on left side Disposition: ADMITTED IP TO THIS HOSP Condition: Serious Referrals: Anamika Cox MD [Primary Care Provider] - 1-2 days Decision to Admit Reason: Admit from EC Decision Time: 00:25
[2020-02-11 21:54] LABS: Basophils # (A) 0.1 k/uL (0-0.2); Basophils % (A) 1 %; Eosinophils # (A) 0.2 k/uL (0-0.7); Eosinophils % (A) 2 %; HCT 41.5 % (39.0-53.0); HGB 13.7 gm/dL (13.0-17.5); Lymphocytes # (A) 1.6 k/uL (1.0-4.8); Lymphocytes % (A) 19 %; MCH 29.8 pg (25.0-35.0); MCHC 32.9 g/dL (31.0-37.0); MCV 90.6 fL (80.0-100.0); Mean Platelet Volume 7.4; Monocytes # (A) 0.5 k/uL (0-1.0); Monocytes % (A) 6 %; Neutrophils # (A) 5.9 k/uL (1.3-7.7); Neutrophils % (A) 72 %; Platelet Count 297 k/uL (150-450); RBC 4.58 m/uL (4.30-5.90); RDW 12.4 % (11.5-15.5); WBC 8.3 k/uL (3.8-10.6)
[2020-02-11 22:02] LABS: Albumin 4.1 g/dL (3.5-5.0); Calcium 9.6 mg/dL (8.4-10.2); Potassium 4.5 mmol/L (3.5-5.1); Total Bilirubin 0.4 mg/dL (0.2-1.3); Total Protein 6.7 g/dL (6.3-8.2)
[2020-02-11 22:03] LABS: Appearance,Urine Cloudy (Clear); Bilirubin,Urine Negative (Negative); Blood,Urine Large (Negative); Color,Urine Red; Glucose,Urine (UA) Trace (Negative); Ketones,Urine Trace (Negative); Leukocyte Esterase,Urine Moderate (Negative); Mucus,Urine Rare /hpf; Nitrite,Urine Negative (Negative); PH, Urine 5.5 (5.0-8.0); Protein,Urine 1+ (Negative); RBC,Urine >182 /hpf (0-5); Specific Gravity,Urine 1.018 (1.001-1.035); Urobilinogen,Urine <2.0 mg/dL (<2.0); WBC,Urine 24 /hpf (0-5)
--- NOTE | 2020-02-11 22:27 | XR ---
EXAMINATION TYPE: XR KUB DATE OF EXAM: 02/11/2020 COMPARISON: 11/30/2019 HISTORY: Left flank pain TECHNIQUE: 2 views upright FINDINGS: There is no sign of intestinal obstruction or pneumoperitoneum. There are clips over the ri ght upper quadrant probably from cholecystectomy. Lung bases are clear. There is no evidence of a mas s. Fecal pattern is normal. IMPRESSION: Nonacute abdomen. Previous surgery. No change.
--- NOTE | 2020-02-12 00:03 | CT ---
EXAMINATION TYPE: CT abdomen pelvis wo con DATE OF EXAM: 02/11/2020 COMPARISON: 11/30/2019 HISTORY: Left Flank Pain CT DLP: 1833.40 mGycm Automated exposure control for dose reduction was used. Images were obtained from the diaphragm to the floor the pelvis without contrast. Lung bases are clear of consolidation. There is no pleural effusion. There is mild hiatal hernia. Hea rt appears normal. There is no pericardial effusion. Liver shows no focal defect. Spleen is intact. T here is no pancreatic mass. Gallbladder appears normal. There is no adrenal mass. Right kidney is absent. Left kidney shows some hydronephrosis and mild hydr oureter. There is mild periureteral edema. There is 5 mm calculus in the distal left ureter close to the urinary bladder. There is a second 3 mm calculus at the left ureterovesical junction. The bladder distends smoothly. There is no inguinal hernia. There is no free fluid in the pelvis. There are clip s from right nephrectomy. There is no mesenteric edema. There is no ascites or free air. There are mu ltiple sigmoid diverticula. There is no sign of diverticulitis. There is no sign of a bowel obstructi on. Appendix appears normal. Lumbar vertebra have normal alignment. There is facet arthropathy in the lower lumbar spine. Abdomina l aorta is atheromatous. The bony pelvis is intact. Hip joints are intact. IMPRESSION: There are 2 obstructing calculi in the distal left ureter with left-sided hydronephrosis and hydroure ter. There is 4 mm calculus lower pole left kidney. There is normal appendix. Obstruction of the left kidney similar to the old CT scan. The calculus at the left ureterovesical junction on the old CT sc an could be still in the same location on today's exam.
[2020-02-12] MEDS ORDERED: ONDANSETRON 4 MG/2 ML VIAL IVP PRN (00:22)
[2020-02-12] MEDS ORDERED: NALOXONE 0.4 MG/ML 1 ML VIAL IV PRN (00:22)
[2020-02-12] MEDS: SODIUM CHLORIDE 0.9% 1,000 ML IV SCH (00:53)
[2020-02-12] MEDS: HYDROmorphone 0.5 MG/0.5 ML SYRINGE IVP PRN ×2 (00:53→05:34)
[2020-02-12 07:13] LABS: Glucose,Whole Blood 205 mg/dL (75-99)
[2020-02-12] MEDS: carvediloL 12.5 MG TAB PO SCH ×2 (08:35→18:02)
--- NOTE | 2020-02-12 08:35 | P.HPIM ---
History of Present Illness H&P Date: 02/12/20 Chief Complaint: flank pain A 69-year-old male with a history of renal cancer status post right-sided nephrectomy in 2019, prior kidney stones, atrial fibrillation, diabetes mellitus controlled with oral agents, and multiple other comorbid conditions who presented to the hospital with complaints of left-sided flank pain. In the ER he underwent an extensive evaluation. Initial vital signs show blood pressure 154/78. Initial laboratory analysis showed BUN of 32, sodium 134, creatinine 1.96 which appears to be near his norm, and a urinalysis with trace glucose, ketones, large blood, and 1+ protein. He underwent a CT abdomen and pelvis which showed 2 left sided urethral stones, left inferior pole stone, and moderate left hydronephrosis. He was subsequently admitted for symptomatic renal stone. Patient seen and examined at bedside. He states that yesterday afternoon he started noticing blood in his urine. Approximately 6 PM he started having flank pain with radiation to the left groin. At that point in time he was noticing some burning with urination. He became concerned because he was having decreased urine output. He denies any nausea, vomiting, shortness of breath, chest pain, fever, or chills. He is otherwise been in his normal state of health. He did recently travel to [facility] to visit family. He has been taking all his medications. He states his diabetes has been fairly well- controlled recently. After discharge from the hospital in November 2019 he did follow up with Dr. Wiseman was not having any issues with his nephrolithiasis. Review of Systems Pertinent positives and negatives as discussed in HPI, a complete review of systems was performed and all other systems are negative. Past Medical History Past Medical History: Atrial Fibrillation, Cancer, Diabetes Mellitus, Eye Disorder, GERD/Reflux, Hyperlipidemia, Hypertension, Myocardial Infarction ([place]) Additional Past Medical History / Comment(s): Bilateral. glaucoma, Right kidney cancer Last Myocardial Infarction Date:: 2006 or 2003 History of Any Multi-Drug Resistant Organisms: None Reported Past Surgical History: Coronary Bypass/CABG, Orthopedic Surgery, Pacemaker Additional Past Surgical History / Comment(s): LEFT SHOULDER REPAIR, RIGHT SHOULDER ROTATOR CUFF REPAIR X2 2009, LEFT KNEE CARTILAGE REPAIR 1966, GANGLIAN CYST REMOVED FROM RIGHT WRIST 1994, RIGHT ACHILLES TENDON REPAIR 2006, CLOSED HEAD INJURY ([facility]) WORK RELATED INJURY 1985, jessica cataract surgery, Right kidney removal, pacemaker placed in 4-5 years ago Past Anesthesia/Blood Transfusion Reactions: No Reported Reaction Type of Cardiac Device: Unknown Device Placement Date:: 4-5 years ago Past Psychological History: No Psychological Hx Reported Smoking Status: Former smoker Past Alcohol Use History: Occasional Additional Past Alcohol Use History / Comment(s): Cigar smoker and quit about 7 years ago. 2-3 a day. Past Drug Use History: None Reported Additional History: live with , retired from [employer] - Past Family History Mother Family Medical History: Cancer Additional Family Medical History / Comment(s): Passed since. Father Family Medical History: Coronary Artery Disease (CAD) Medications and Allergies Home Medications Medication Instructions Recorded Confirmed Type Atorvastatin [Lipitor] 80 mg PO HS 04/07/15 02/11/20 History amLODIPine [Norvasc] 10 mg PO DAILY 04/07/15 02/11/20 History Fenofibrate [Lofibra] 160 mg PO HS 04/30/17 02/11/20 History carvediloL [Carvedilol] 25 mg PO BID 03/02/18 02/11/20 History Apixaban [Eliquis] 5 mg PO BID 11/18/18 02/11/20 History Cholecalciferol [Vitamin D3 (25 2,000 unit PO DAILY 04/26/19 02/11/20 History Mcg = 1000 Iu)] Ferrous Sulfate [Iron (65 MG 325 mg PO DAILY 04/26/19 02/11/20 History Elemental)] Glimepiride [Amaryl] 4 mg PO AC-BID 11/30/19 02/11/20 History hydrALAZINE HCL [Apresoline] 100 mg PO TID 11/30/19 02/11/20 History Allergies Allergy/AdvReac Type Severity Reaction Status Date / Time losartan potassium Allergy Dyspnea Verified 02/11/20 22:26 [From Cozaar] Physical Exam Osteopathic Statement: *. No significant issues noted on an osteopathic structural exam other than those noted in the History and Physical/Consult. Vitals: Vital Signs Temp Pulse Pulse Resp BP BP Pulse Ox 02/12/20 05:00 97.6 F 51 L 18 188/82 97 02/12/20 01:45 98.0 F 61 18 175/91 97 02/12/20 00:31 60 18 183/81 95 02/11/20 21:00 98.1 F 61 16 154/78 95 Intake and Output 02/11/20 02/12/20 02/12/20 22:59 06:59 14:59 Intake Total 200 Output Total 175 Balance -175 200 Intake: Intake, IV Titration 200 Amount Sodium Chloride 0.9% 1, 200 000 ml @ 50 mls/hr IV . Q20H [facility] Rx#:[id number] Output: Post Void Residual 175 Other: Voiding Method Urinal # Voids 2 Weight 137.438 kg 137.438 kg General: non toxic, no distress, appears at stated age, obese Derm: warm, dry Head: atraumatic, normocephalic, symmetric Eyes: EOMI, no lid lag, anicteric sclera, pupils equal round reactive to light ENT: Nose and ears atraumatic, no thrush, no pharyngeal erythema Neck: No thyromegaly, no cervical lymphadenopathy, trachea midline, supple Mouth: no lip lesion, mucus membranes moist Cardiovascular: S1S2 reg, no murmur, positive posterior tibial pulse bilateral, no edema, capillary refill less than 2 seconds Lungs: clear to ascultation bilateral, no ronchi, no rales, no wheeze, no accessory muscle use Abdominal: soft, + tender to palpation Left LQ and L CVA, no guarding, no appreciable organomegaly, normal bowel sounds Ext: no gross muscle atrophy, muscle strength muscle strength 5 out of 5 in all 4 extremities, no contractures Neuro: CN II-XI grossly intact, light touch intact all 4 extremities, finger to nose within normal limits, Psych: Alert, oriented, appropriate affect Results CBC & Chem 7: 02/11/20 21:44 02/11/20 21:44 Labs: Abnormal Lab Results - Last 24 Hours (Table) 02/11/20 02/11/20 02/12/20 Range/Units 21:44 21:44 07:11 Sodium 134 L (137-145) mmol/L Carbon Dioxide 19 L (22-30) mmol/L BUN 32 H (9-20) mg/dL Creatinine 1.96 H (0.66-1.25) mg/dL Glucose 195 H (74-99) mg/dL POC Glucose (mg/dL) 205 H (75-99) mg/dL Urine Protein 1+ H (Negative) Urine Glucose (UA) Trace H (Negative) Urine Ketones Trace H (Negative) Urine Blood Large H (Negative) Ur Leukocyte Esterase Moderate H (Negative) Urine RBC >182 H (0-5) /hpf Urine WBC 24 H (0-5) /hpf Urine Mucus Rare H (None) /hpf Microbiology - Last 24 Hours (Table) 02/11/20 21:44 Urine Culture - Preliminary Urine,Voided CT scan - abdomen: report reviewed CT scan - pelvis: report reviewed Thrombosis Risk Factor Assmnt - DVT/VTE Prophylaxis DVT/VTE Prophylaxis: Pharmacologic Prophylaxis ordered - Choose All That Apply Each Factor Represents 1 point: Obesity (BMI >25), Swollen legs (current) Each Risk Factor Represents 2 Points: Age 61-74 years Thrombosis Risk Factor Assessment Total Risk Factor Score: 4 Thrombosis Risk Factor Assessment Level: Moderate Risk Assessment and Plan Assessment: Left Ureteral Calculi with hydronephrosis - plan is for lithrotripsy with stent placement today - D/W urology HTN urgency - resume home meds of norvasc, Hydralazine, and coreg CKD stage III - at baseline - follow Cr - avoid additional nephrotoxic agents DM 2 on oral medications - hold oral medications - SSI - follow BD HLD - statin, and fenofibrate A fib - hold eliquis - continue coreg - monitor HR HX renal carcinoma with right nephrectomy Obesity with BMI 40 - structured outaptient weight loss DVT prophylaxis: SCDs Discussed with: patient, nursing, urology Anticipated discharge: later today Anticipated discharge place: home A total of 65 minutes was spent on the care of this complex patient more than 50% of the time was spent in counseling and care coordination.
[2020-02-12] MEDS: hydrALAZINE HCL 50 MG TAB PO SCH ×4 (08:36→21:29)
[2020-02-12] MEDS: amLODIPine 10 MG TAB PO SCH (08:36)
[2020-02-12] MEDS: FERROUS SULFATE 325 MG TAB PO SCH (08:51)
[2020-02-12] MEDS: CHOLECALCIFEROL 1,000 UNIT TAB PO SCH (08:51)
--- NOTE | 2020-02-12 08:54 | P.GSCN ---
History of Present Illness Consult date: 02/12/20 Reason for Consult: Left ureteral calculi Requesting physician: Omayra Wheeler History of present illness: The patient is a 69-year-old white male with a history of urolithiasis. He was found to have a right renal mass and underwent a right nephrectomy in November 2018. Pathology showed an oncocytoma. He presented in November 2019 with left renal colic. His symptoms recurred yesterday, associated with gross hematuria. A co mputed tomography scan shows evidence of left hydronephrosis due to 2 left distal ureteral calculi, measuring 3-5 mm in size. An additional 4 mm left renal calculus is seen. Review of Systems - Constitutional Denies chills, Denies fever - Gastrointestinal Denies nausea, Denies vomiting - Genitourinary Reports dysuria, Reports flank pain, Reports hematuria, Reports kidney stones Past Medical History Past Medical History: Atrial Fibrillation, Cancer, Diabetes Mellitus, Eye Disorder, GERD/Reflux, Hyperlipidemia, Hypertension, Myocardial Infarction ([place]) Additional Past Medical History / Comment(s): Bilateral. glaucoma, Right kidney cancer Last Myocardial Infarction Date:: 2006 or 2003 History of Any Multi-Drug Resistant Organisms: None Reported Past Surgical History: Coronary Bypass/CABG, Orthopedic Surgery, Pacemaker Additional Past Surgical History / Comment(s): LEFT SHOULDER REPAIR, RIGHT SHOULDER ROTATOR CUFF REPAIR X2 2009, LEFT KNEE CARTILAGE REPAIR 1966, GANGLIAN CYST REMOVED FROM RIGHT WRIST 1994, RIGHT ACHILLES TENDON REPAIR 2006, CLOSED HEAD INJURY ([facility]) WORK RELATED INJURY 1985, jessica cataract surgery, Rightt kidney removal, pacemaker placed in 4-5 years ago Past Anesthesia/Blood Transfusion Reactions: No Reported Reaction Type of Cardiac Device: Unknown Device Placement Date:: 4-5 years ago Past Psychological History: No Psychological Hx Reported Smoking Status: Former smoker Past Alcohol Use History: Occasional Additional Past Alcohol Use History / Comment(s): Cigar smoker and quit about 7 years ago. 2-3 a day. Past Drug Use History: None Reported - Past Family History Mother Family Medical History: Cancer Additional Family Medical History / Comment(s): Passed since. Father Family Medical History: Coronary Artery Disease (CAD) Medications and Allergies Home Medications Medication Instructions Recorded Confirmed Type Atorvastatin [Lipitor] 80 mg PO HS 04/07/15 02/11/20 History amLODIPine [Norvasc] 10 mg PO DAILY 04/07/15 02/11/20 History Fenofibrate [Lofibra] 160 mg PO HS 04/30/17 02/11/20 History carvediloL [Carvedilol] 25 mg PO BID 03/02/18 02/11/20 History Apixaban [Eliquis] 5 mg PO BID 11/18/18 02/11/20 History Cholecalciferol [Vitamin D3 (25 2,000 unit PO DAILY 04/26/19 02/11/20 History Mcg = 1000 Iu)] Ferrous Sulfate [Iron (65 MG 325 mg PO DAILY 04/26/19 02/11/20 History Elemental)] Glimepiride [Amaryl] 4 mg PO AC-BID 11/30/19 02/11/20 History hydrALAZINE HCL [Apresoline] 100 mg PO TID 11/30/19 02/11/20 History Allergies Allergy/AdvReac Type Severity Reaction Status Date / Time losartan potassium Allergy Dyspnea Verified 02/11/20 22:26 [From Ilcktn] Surgical - Exam Vital Signs Temp Pulse Resp BP Pulse Ox 98.1 F 61 16 154/78 95 02/11/20 21:00 02/11/20 21:00 02/11/20 21:00 02/11/20 21:00 02/11/20 21:00 - General well developed, well nourished, no distress - Respiratory normal respiratory effort - Abdomen Abdomen: soft, non tender, no guarding, no rigid, no rebound - Genitourinary normal penis with no external lesions, testicles non-tender - Psychiatric oriented to time, oriented to person, oriented to place, speech is normal, memory intact Results - Labs 02/11/20 21:44 02/11/20 21:44 Abnormal Lab Results - Last 24 Hours (Table) 02/11/20 02/11/20 02/12/20 Range/Units 21:44 21:44 07:11 Sodium 134 L (137-145) mmol/L Carbon Dioxide 19 L (22-30) mmol/L BUN 32 H (9-20) mg/dL Creatinine 1.96 H (0.66-1.25) mg/dL Glucose 195 H (74-99) mg/dL POC Glucose (mg/dL) 205 H (75-99) mg/dL Urine Protein 1+ H (Negative) Urine Glucose (UA) Trace H (Negative) Urine Ketones Trace H (Negative) Urine Blood Large H (Negative) Ur Leukocyte Esterase Moderate H (Negative) Urine RBC >182 H (0-5) /hpf Urine WBC 24 H (0-5) /hpf Urine Mucus Rare H (None) /hpf Microbiology - Last 24 Hours (Table) 02/11/20 21:44 Urine Culture - Preliminary Urine,Voided Diabetes panel 02/11/20 Range/Units 21:44 Sodium 134 L (137-145) mmol/L Potassium 4.5 (3.5-5.1) mmol/L Chloride 105 (98-107) mmol/L Carbon Dioxide 19 L (22-30) mmol/L BUN 32 H (9-20) mg/dL Creatinine 1.96 H (0.66-1.25) mg/dL Glucose 195 H (74-99) mg/dL Calcium 9.6 (8.4-10.2) mg/dL AST 24 (17-59) U/L ALT 18 (4-49) U/L Alkaline Phosphatase 68 (38-126) U/L Total Protein 6.7 (6.3-8.2) g/dL Albumin 4.1 (3.5-5.0) g/dL Calcium panel 02/11/20 Range/Units 21:44 Calcium 9.6 (8.4-10.2) mg/dL Albumin 4.1 (3.5-5.0) g/dL Pituitary panel 02/11/20 Range/Units 21:44 Sodium 134 L (137-145) mmol/L Potassium 4.5 (3.5-5.1) mmol/L Chloride 105 (98-107) mmol/L Carbon Dioxide 19 L (22-30) mmol/L BUN 32 H (9-20) mg/dL Creatinine 1.96 H (0.66-1.25) mg/dL Glucose 195 H (74-99) mg/dL Calcium 9.6 (8.4-10.2) mg/dL Adrenal panel 02/11/20 Range/Units 21:44 Sodium 134 L (137-145) mmol/L Potassium 4.5 (3.5-5.1) mmol/L Chloride 105 (98-107) mmol/L Carbon Dioxide 19 L (22-30) mmol/L BUN 32 H (9-20) mg/dL Creatinine 1.96 H (0.66-1.25) mg/dL Glucose 195 H (74-99) mg/dL Calcium 9.6 (8.4-10.2) mg/dL Total Bilirubin 0.4 (0.2-1.3) mg/dL AST 24 (17-59) U/L ALT 18 (4-49) U/L Alkaline Phosphatase 68 (38-126) U/L Total Protein 6.7 (6.3-8.2) g/dL Albumin 4.1 (3.5-5.0) g/dL - Imaging CT scan - abdomen: report reviewed, image reviewed Assessment and Plan (1) Calculus of ureter Current Visit: Yes Status: Acute Code(s): N20.1 - CALCULUS OF URETER SNOMED Code(s): 68311743 (2) Hydronephrosis with renal and ureteral calculous obstruction Current Visit: Yes Status: Acute Code(s): N13.2 - HYDRONEPHROSIS WITH RENAL AND URETERAL CALCULOUS OBSTRUCTION SNOMED Code(s): 970842193 Plan: I had a lengthy discussion with the patient regarding his ureteral calculi. I explained to him that these calculi are causing ureteral obstruction, which in turn can compromise function of his solitary kidney. In fact, review of the computed tomography scan suggests that there may even be 3 distal ureteral calculi. An additional 4 mm calculus is seen within a lower pole calyx. He will undergo cystoscopy, left ureteroscopy with Holmium laser lithotripsy, left ureteral stent insertion. The rationale for this has been discussed, along with potential risks. These include anesthesia, bleeding, infection, and ureteral i njury. It is anticipated that he will be discharged home postoperatively. Time with Patient: Greater than 30
[2020-02-12 11:22] LABS: Glucose,Whole Blood 196 mg/dL (75-99)
[2020-02-12] MEDS: INSULIN ASPART (NovoLOG) 100 UNIT/ML VIAL SQ SCH ×3 (11:22→21:29)
[2020-02-12] MEDS ORDERED: NEOSTIGMINE 1 MG/ML 10 ML VIAL ONE (12:33)
[2020-02-12] MEDS ORDERED: GLYCOPYRROLATE 0.2 MG/ML 2 ML VIAL ONE (12:33)
[2020-02-12] MEDS ORDERED: SUCCINYLCHOLINE CHLORIDE VIAL 200 MG/10 ML VIAL IV ONE (12:33)
[2020-02-12] MEDS ORDERED: ceFAZolin 1,000 MG VIAL ONE (12:33)
[2020-02-12] MEDS ORDERED: PROPOFOL 10 MG/ML 20 ML VIAL IV ONE (12:33)
[2020-02-12] MEDS ORDERED: IV FLUID CONTINUATION 1,000 ML IV ONE (12:33)
[2020-02-12] MEDS ORDERED: fentaNYL (PF) 50 MCG/ML 2 ML AMP ONE (12:33)
[2020-02-12] MEDS ORDERED: LIDOCAINE 1% INJ 10MG/ML (20 ML MDV) ONE (12:33)
[2020-02-12] MEDS ORDERED: MIDAZOLAM 2 MG/2 ML VIAL ONE (12:33)
[2020-02-12] MEDS ORDERED: SODIUM CHLORIDE 0.9% 100 ML with ceFAZolin 1,000 MG IV ONE ×2 (12:49)
[2020-02-12] MEDS ORDERED: LACTATED RINGERS 1,000 ML IV ONE (13:13)
[2020-02-12] MEDS ORDERED: SODIUM CHLORIDE 0.9% 1,000 ML IV ONE (14:20)
--- NOTE | 2020-02-12 14:21 | P.OP ---
Date of Procedure: 02/12/20 Preoperative Diagnosis: Left ureteral calculi, left renal calculus Postoperative Diagnosis: Same Procedure(s) Performed: Cystoscopy, left ureteroscopy with Holmium laser lithotripsy and stone basketing, left ureteral stent insertion Anesthesia: RALEIGHA Surgeon: Alexander Keyes Estimated Blood Loss (ml): 5 IV fluids (ml): 800 Pathology: other (Calculus fragments, sent for chemical analysis) Condition: stable Disposition: PACU Indications for Procedure: The patient is a 69-year-old white male with a history of urolithiasis. He was found to have a right renal mass and underwent a right nephrectomy in November 2018. Pathology showed an oncocytoma. He presented in November 2019 with left renal colic. His symptoms recurred yesterday, associated with gross hematuria. A computed tomography scan shows evidence of left hydronephrosis due to 2-3 left distal ureteral calculi, measuring 3-5 mm in size. An additional 4 mm left renal calculus is seen. Operative Findings: 3 left distal ureteral calculi, fragmented and basketed. 4 mm left lower pole renal calculus, fragmented completely. Description of Procedure: The patient was taken to the operating room and placed in the dorsolithotomy position, with legs supported in Ruben stirrups. The external genitalia was prepped and draped sterilely. The 30 lens was used to introduce the 21-Bhutanese Bingham cystoscopic sheath through the urethra and into the bladder under direct vision. The prostatic urethra showed evidence of mild lateral lobe enlargement. The bladder was examined in its entirety. Both ureteral orifices were normal anatomic location and configuration. A calculus was seen at the left ureteral orifice. No tumors were seen. The Bingham semirigid ureteroscope was advanced into the bladder, and the 272 holmium laser probe was passed through the ureteroscope. The calculus at the left ureteral orifice was fragmented. The calculus refluxed back into the ureter, and after fragmenting this calculus 2 additional calculi were encountered and fragmented. The stone fragments were removed from the ureter using a 1.9-Bhutanese nitinol basket. Inspection of the ureter showed no evidence of ureteral injury. A 0.035 inch Glidewire was passed up to the left renal pelvis. The semirigid ureteroscope was removed, and the [employer] flexible ureteroscope was passed over the wire, up to the proximal ureter. The ureteroscope was advanced under direct vision. The calculus was located within a lower pole calyx. This was fragmented completely. Fragmentation was continued until there were no residual calculus fragments exceeding 1-2 mm in size. The Glidewire was passed through the ureteroscope, which was then slowly withdrawn. The Glidewire was backloaded into the cystoscope, which was passed into the bladder. A 28 cm, 6-Bhutanese double-J ureteral stent was placed over the wire. Proper stent positioning was verified fluoroscopically and endoscopically. The bladder was emptied and the cystoscope removed. The removed calculus fragments were sent for chemical analysis. The patient tolerated the procedure well and was taken to the recovery room in stable condition.
--- NOTE | 2020-02-12 14:25 | FL ---
Fluoroscopy INDICATION: Pain FINDINGS: Fluoroscopy time: 8 seconds. Images obtained: 1. IMPRESSIONS: 1. Documentation of fluoroscopy.
[2020-02-12] MEDS ORDERED: hydrALAZINE HCL 20 MG/ML 1 ML VIAL IVP ONE ×5 (14:35→15:54)
[2020-02-12] MEDS ORDERED: HYDROmorphone 0.5 MG/0.5 ML SYRINGE IVP ONE (15:05)
[2020-02-12] MEDS ORDERED: MORPHINE SULFATE 4MG/4ML SYRG IVP ONE ×2 (15:32→15:37)
[2020-02-12 17:11] LABS: Glucose,Whole Blood 268 mg/dL (75-99)
[2020-02-12] MEDS ORDERED: ATORVASTATIN 80 MG TAB PO SCH (21:00)
[2020-02-12] MEDS ORDERED: FENOFIBRATE 160 MG TAB PO SCH (21:00)
[2020-02-12 21:12] LABS: Glucose,Whole Blood 204 mg/dL (75-99)
[2020-02-12] MEDS: BENZOCAINE/MENTHOL LOZENG 1 EACH LOZENGE MUCOUS MEM PRN (22:45)
[2020-02-12 23:47] VITALS: RESP 18
[2020-02-13] MEDS: BENZOCAINE/MENTHOL LOZENG 1 EACH LOZENGE MUCOUS MEM PRN ×2 (03:12→08:44)
[2020-02-13] MEDS: SODIUM CHLORIDE 0.9% 1,000 ML IV SCH (04:26)
[2020-02-13 06:52] LABS: Glucose,Whole Blood 153 mg/dL (75-99)
[2020-02-13] MEDS: INSULIN ASPART (NovoLOG) 100 UNIT/ML VIAL SQ SCH (06:59)
[2020-02-13] MEDS: carvediloL 12.5 MG TAB PO SCH (06:59)
[2020-02-13 07:36] LABS: Calcium 9.1 mg/dL (8.4-10.2); Potassium 4.3 mmol/L (3.5-5.1)
[2020-02-13] MEDS: amLODIPine 10 MG TAB PO SCH (08:42)
[2020-02-13] MEDS: hydrALAZINE HCL 50 MG TAB PO SCH (08:42)
[2020-02-13] MEDS: FERROUS SULFATE 325 MG TAB PO SCH (08:42)
[2020-02-13] MEDS: CHOLECALCIFEROL 1,000 UNIT TAB PO SCH (08:44)
--- NOTE | 2020-02-13 10:26 | P.PN ---
Progress Note - Text Progress Note Date: 02/13/20 The patient experienced difficulty voiding yesterday evening, and his postvoid residual was approximately 500 mL. Therefore, a Beckford catheter was placed. He reports minor catheter irritation this morning but is otherwise feeling well. He denies flank pain. He is afebrile with stable vital signs. Beckford catheter is draining clear yellow urine. He is urologically stable for discharge, with a Beckford catheter. I have prescribed tamsulosin, and he will follow up in February 14 for Beckford catheter removal. The ureteral stent will be removed 1 week later. Please notify me if we can be of any further assistance.
--- NOTE | 2020-02-13 10:48 | P.DS ---
Providers Date of admission: 02/12/20 00:14 Expected date of discharge: 02/13/20 Attending physician: Omayra Wheeler MD Consults: 02/12/20 00:22 Consult Physician Routine Consulting Provider: Alexander Keyes Consult Reason/Comments: Kidney stone x2 left side Do you want consulting provider notified?: Yes Primary care physician: Anamika Cox Hospital Course: Discharge Diagnosis: Left ureteral Calculi with hydronephrosis HTN urgency Post op urinary retention CKD III Dm 2 with oral medications HLD A fib Obesity Hx renal carcinoma Hospital Course: A 69-year-old male with a history of renal cancer status post right-sided nephrectomy in 2019, prior kidney stones, atrial fibrillation, diabetes mellitus controlled with oral agents, and multiple other comorbid conditions who presented to the hospital with complaints of left-sided flank pain. In the ER he underwent an extensive evaluation. Initial vital signs show blood pressure 154/78. Initial laboratory analysis showed BUN of 32, sodium 134, creatinine 1.96 which appears to be near his norm, and a urinalysis with trace glucose, ketones, large blood, and 1+ protein. He underwent a CT abdomen and pelvis which showed 2 left sided urethral stones, left inferior pole stone, and moderate left hydronephrosis. He was subsequently admitted for symptomatic renal stone. On 02/11 he went for lithotripsy with stent placement which was sucessful. He struggeled wtih hytentension which improved with resuming his home medications. He developed post-op urinary rentention was straight cath X 1 and then had a brown inserted. On the morning of 02/12 his BP was improved. He was seen by urology and cleared for discharge. He will be discharged with a brown cath inplace. He will see Dr. Keyes in the office next week and will followup with Dr. Cox in 1 week. Patient seen and examined at bedside. No pain, no nausea, no GARCIA. Vital signs reviewed and stable. General: non toxic, no distress, appears at stated age Derm: warm, dry Head: atraumatic, normocephalic, symmetric Eyes: EOMI, no lid lag, anicteric sclera Mouth: no lip lesion, mucus membranes moist Cardiovascular: S1S2 reg, no murmur, positive posterior tibial pulse bilateral, Lungs: CTA bilateral, no rhonchi, no rales , no accessory muscle use Abdominal: soft, nontender to palpation, no guarding, no appreciable organomegaly Ext: no gross muscle atrophy, no edema, no contractures Neuro: CN II-XI grossly intact, no focal neuro deficits Psych: Alert, oriented, appropriate affect A total of 25 minutes of time were spent preparing this complex discharge summary . Patient Condition at Discharge: Stable Plan - Discharge Summary Discharge Rx Participant: No New Discharge Prescriptions: New Tamsulosin [Flomax] 0.4 mg PO DAILY #30 cap HYDROcodone/APAP 5-325MG [Penfield 5] 1 each PO Q6HR PRN #12 tab PRN Reason: Pain Continue amLODIPine [Norvasc] 10 mg PO DAILY Atorvastatin [Lipitor] 80 mg PO HS Fenofibrate [Lofibra] 160 mg PO HS carvediloL [Carvedilol] 25 mg PO BID Apixaban [Eliquis] 5 mg PO BID Ferrous Sulfate [Iron (65 MG Elemental)] 325 mg PO DAILY Cholecalciferol [Vitamin D3 (25 Mcg = 1000 Iu)] 2,000 unit PO DAILY hydrALAZINE HCL [Apresoline] 100 mg PO TID Glimepiride [Amaryl] 4 mg PO AC-BID Discharge Medication List Atorvastatin [Lipitor] 80 mg PO HS 04/07/15 [History] amLODIPine [Norvasc] 10 mg PO DAILY 04/07/15 [History] Fenofibrate [Lofibra] 160 mg PO HS 04/30/17 [History] carvediloL [Carvedilol] 25 mg PO BID 03/02/18 [History] Apixaban [Eliquis] 5 mg PO BID 11/18/18 [History] Cholecalciferol [Vitamin D3 (25 Mcg = 1000 Iu)] 2,000 unit PO DAILY 04/26/19 [History] Ferrous Sulfate [Iron (65 MG Elemental)] 325 mg PO DAILY 04/26/19 [History] Glimepiride [Amaryl] 4 mg PO AC-BID 11/30/19 [History] hydrALAZINE HCL [Apresoline] 100 mg PO TID 11/30/19 [History] HYDROcodone/APAP 5-325MG [Penfield 5] 1 each PO Q6HR PRN #12 tab 02/13/20 [Rx] Tamsulosin [Flomax] 0.4 mg PO DAILY #30 cap 02/13/20 [Rx] Follow up Appointment(s)/Referral(s): Anamika Cox MD [Primary Care Provider] - 1-2 days Activity/Diet/Wound Care/Special Instructions: Diet and activity as tolerated. Discharge home with Brown catheter. Patient to follow up with Dr. Keyes or Dr. Guzman on 02/15/2020 (early am appointment) for Brown catheter removal, and also the week of February 20 for office cystoscopy with stent removal ([phone]). Discharge Disposition: HOME SELF-CARE
[2020-02-13 11:18] LABS: Glucose,Whole Blood 227 mg/dL (75-99)
[2020-02-13 11:21] VITALS: BP 141/95; PULSE 62; TEMP 98.5
== END 2020-02-13 12:10 | disposition home or self-care (01) ==
LOC: EC 20:45 → 5NMEDONC 02-12 00:14 → INTOOBSV 02-12 00:14
PROVIDERS: ADMIT Internal Medicine; ATTEND Internal Medicine
DX: N13.2 Hydronephrosis with renal and ureteral calculous obstruction (principal); C65.1 Malignant neoplasm of right renal pelvis; Z90.5 Acquired absence of kidney; I16.0 Hypertensive urgency; I12.9 Hypertensive chronic kidney disease with stage 1 through stage 4 chronic kidney disease, or unspecified chronic kidney disease; E11.22 Type 2 diabetes mellitus with diabetic chronic kidney disease; N18.3 Chronic kidney disease, stage 3 (moderate); Z87.442 Personal history of urinary calculi; R31.0 Gross hematuria; E66.9 Obesity, unspecified; Z68.41 Body mass index [BMI] 40.0-44.9, adult; Z87.891 Personal history of nicotine dependence; E78.5 Hyperlipidemia, unspecified; I48.91 Unspecified atrial fibrillation; K21.9 Gastro-esophageal reflux disease without esophagitis; I25.2 Old myocardial infarction; H40.9 Unspecified glaucoma; Z95.1 Presence of aortocoronary bypass graft; I69.398 Other sequelae of cerebral infarction; Z98.890 Other specified postprocedural states; Z98.42 Cataract extraction status, left eye; Z98.41 Cataract extraction status, right eye; Z95.0 Presence of cardiac pacemaker; N40.0 Benign prostatic hyperplasia without lower urinary tract symptoms; Z85.528 Personal history of other malignant neoplasm of kidney; Z95.810 Presence of automatic (implantable) cardiac defibrillator; Z80.9 Family history of malignant neoplasm, unspecified; Z82.49 Family history of ischemic heart disease and other diseases of the circulatory system; Z79.01 Long term (current) use of anticoagulants; Z79.84 Long term (current) use of oral hypoglycemic drugs; Z79.899 Other long term (current) drug therapy; Z88.8 Allergy status to other drugs, medicaments and biological substances; Z87.820 Personal history of traumatic brain injury
CPT/HCPCS: 96375; 96361; 96374; 99285; 51798; 36415; 80053; 80048; 83690; 85025; 81001; 82365; 87086; 74018; 74176; 52356; G0378 ×2; C2625; C1769; J2250; J0330; J0360; J2710; J2405; J0690; J2001; J3010; J2704; J1170; J2270

== ENCOUNTER → 2020-04-27 | Outpatient (CLI) | payer MEDICARE, OTHER ==
--- NOTE | 2020-04-27 08:19 | US ---
EXAMINATION TYPE: US kidneys/renal and bladder DATE OF EXAM: 04/27/2020 COMPARISON: US, Xray, CT February 11, 2020 CLINICAL HISTORY: N13.2, N20.1 Kidney stone. H/O right renal nephrectomy, H/O left renal calculi EXAM MEASUREMENTS: Left Kidney: 13.8 x 6.8 x 5.8 cm Right Kidney: Surgically absent Left Kidney: Appeared wnl Bladder: Wall appeared thickened Bilateral Jets seen: No Scanning right renal fossa redemonstrates absent right kidney. Visualized liver is heterogeneously hy perechoic consistent with diffuse fatty infiltration. Bladder not greatly distended making evaluation suboptimal. Mild abnormal bladder wall thickening between 9 to 10 mm. Finding likely on basis of out let obstruction related to BPH. Correlate clinically. Left kidney slightly enlarged in size consisten t with compensatory hypertrophy. Cortical medullary differentiation maintained. No shadowing hyperech oic foci to suggest nephrolithiasis. No hydronephrosis. IMPRESSION: No left-sided renal calculi or hydronephrosis identified on current study. 2 small adjace nt nonobstructing calculi measuring 3 to 4 mm in size lower pole level on CT February 11, 2020 are not clearly seen on ultrasound images saved.
--- NOTE | 2020-04-27 08:52 | XR ---
EXAMINATION TYPE: XR KUB DATE OF EXAM: 04/27/2020 8:29 AM CLINICAL HISTORY: Left-sided kidney stones. TECHNIQUE: Two supine KUB images of the abdomen are obtained. COMPARISON: Abdominal x-ray and CT February 11, 2020. Renal ultrasound earlier today. FINDINGS: The 2 small adjacent calculi lower pole of the left kidney on CT less well seen on plain fi lms. Right kidney surgically absent with surgical clips. Vascular calcification in the iliac branch vessels. Overall nonobstructive bowel gas pattern. Moderat e narrowing of both hip joints. IMPRESSION: As above.
== END | disposition home or self-care (01) ==
LOC: RADUSMAIN 07:41
PROVIDERS: ATTEND Urology
DX: N20.1 Calculus of ureter (principal)
CPT/HCPCS: 74018; 76770

== ENCOUNTER → 2020-05-03 | Outpatient (CLI) | payer MEDICARE, OTHER | END | disposition home or self-care (01) | LOC: LABWHC1 08:31 | PROVIDERS: ATTEND Urology | DX: N20.0 Calculus of kidney (principal); R82.993 Hyperuricosuria | CPT/HCPCS: 36415; 84550 ==

== ENCOUNTER → 2021-01-12 | Outpatient (CLI) | payer MEDICARE, OTHER ==
[2021-01-12 20:23] LABS: Chol/HDL Ratio 4.88; LDL Cholesterol,Calculated 80.8 mg/dL (0.0-131.0); VLDL Calculation 51.2 mg/dL (5.00-40.00)
== END | disposition home or self-care (01) ==
LOC: LABWHC1 09:08
PROVIDERS: ATTEND Internal Medicine Cardiovascular Disease
DX: E78.2 Mixed hyperlipidemia (principal)
CPT/HCPCS: 36415; 80061; 84450; 84460

== ENCOUNTER 2021-02-06 14:28 | Emergency (ER) | payer MEDICARE, OTHER ==
[2021-02-06] MEDS ORDERED: LIDOCAINE 1%-EPI 1:100,000 20 ML VIAL SQ STA (15:29)
--- NOTE | 2021-02-06 15:35 | ED ---
General Adult HPI - General Chief complaint: Extremity Injury, Upper Stated complaint: Elbow swelling Source: patient, RN notes reviewed, old records reviewed Mode of arrival: ambulatory Limitations: no limitations - History of Present Illness Initial comments: 70-year-old well-appearing male, alert and oriented 4, presents to the emergency room with complaints of left elbow swelling. Patient states he just noticed it at 11:00 today. There is no pain to palpation or with movement of the joint. He denies any other symptoms including fevers, nausea or vomiting. He states this has never happened to him before and does not recall injuring her pain in the elbow. -: hour(s) (4) Location: left Severity scale (1-10): 0 (Elbow) Associated Symptoms: denies other symptoms - Related Data Home Medications Medication Instructions Recorded Confirmed Atorvastatin [Lipitor] 80 mg PO HS 04/07/15 02/11/20 amLODIPine [Norvasc] 10 mg PO DAILY 04/07/15 02/11/20 Fenofibrate [Lofibra] 160 mg PO HS 04/30/17 02/11/20 carvediloL 25 mg PO BID 03/02/18 02/11/20 Apixaban [Eliquis] 5 mg PO BID 11/18/18 02/11/20 Cholecalciferol [Vitamin D3 (25 2,000 unit PO DAILY 04/26/19 02/11/20 Mcg = 1000 Iu)] Ferrous Sulfate [Iron (65 MG 325 mg PO DAILY 04/26/19 02/11/20 Elemental)] Glimepiride [Amaryl] 4 mg PO AC-BID 11/30/19 02/11/20 hydrALAZINE HCL [Apresoline] 100 mg PO TID 11/30/19 02/11/20 Previous Rx's Medication Instructions Recorded HYDROcodone/APAP 5-325MG [Azalea 5] 1 each PO Q6HR PRN #12 tab 02/13/20 Tamsulosin [Flomax] 0.4 mg PO DAILY #30 cap 02/13/20 Allergies Allergy/AdvReac Type Severity Reaction Status Date / Time losartan potassium Allergy Dyspnea Verified 02/06/21 14:33 [From Jeovanny] Review of Systems ROS Statement: Those systems with pertinent positive or pertinent negative responses have been documented in the HPI. ROS Other: All systems not noted in ROS Statement are negative. Past Medical History Past Medical History: Atrial Fibrillation, Cancer, Diabetes Mellitus, Eye Disorder, GERD/Reflux, Hyperlipidemia, Hypertension, Myocardial Infarction ([place]) Additional Past Medical History / Comment(s): Bilateral. glaucoma, Right kidney cancer Last Myocardial Infarction Date:: 2006 or 2003 History of Any Multi-Drug Resistant Organisms: None Reported Past Surgical History: Coronary Bypass/CABG, Orthopedic Surgery, Pacemaker Additional Past Surgical History / Comment(s): LEFT SHOULDER REPAIR, RIGHT SHOULDER ROTATOR CUFF REPAIR X2 2009, LEFT KNEE CARTILAGE REPAIR 1966, GANGLIAN CYST REMOVED FROM RIGHT WRIST 1994, RIGHT ACHILLES TENDON REPAIR 2006, CLOSED HEAD INJURY ([facility]) WORK RELATED INJURY 1985, jessica cataract surgery, Right kidney removal, pacemaker placed in 4-5 years ago Past Anesthesia/Blood Transfusion Reactions: No Reported Reaction Type of Cardiac Device: Unknown Device Placement Date:: 4-5 years ago Past Psychological History: No Psychological Hx Reported Smoking Status: Former smoker Past Alcohol Use History: Occasional Past Drug Use History: None Reported - Past Family History Mother Family Medical History: Cancer Additional Family Medical History / Comment(s): Passed since. Father Family Medical History: Coronary Artery Disease (CAD) General Exam Limitations: no limitations General appearance: alert, in no apparent distress Head exam: Present: atraumatic, normocephalic, normal inspection Eye exam: Present: normal appearance, PERRL, EOMI. Absent: scleral icterus, conjunctival injection, periorbital swelling ENT exam: Present: normal exam, normal oropharynx, mucous membranes moist Neck exam: Present: normal inspection, full ROM. Absent: tenderness, meningismus, lymphadenopathy Respiratory exam: Present: normal lung sounds bilaterally. Absent: respiratory distress, wheezes, rales, rhonchi, stridor Cardiovascular Exam: Present: regular rate, normal rhythm, normal heart sounds. Absent: systolic murmur, diastolic murmur, rubs, gallop, clicks GI/Abdominal exam: Present: soft, normal bowel sounds. Absent: distended, tenderness, guarding, rebound, rigid Extremities exam: Present: full ROM, normal capillary refill. Absent: tenderness, pedal edema, joint swelling, calf tenderness Left Shoulder Exam: Present: full ROM Upper Arm exam: Present: full ROM Elbow exam: Present: full ROM, swelling, other (Bursitis). Absent: tenderness, abrasion, laceration, ecchymosis, deformity, crepitus, dislocation, erythema Forearm Wrist exam: Present: full ROM. Absent: tenderness Hand Wrist exam: Present: full ROM. Absent: tenderness Vascular: Present: normal capillary refill, radial pulse. Absent: vascular compromise Neurological exam: Present: alert, oriented X3, CN II-XII intact Psychiatric exam: Present: normal affect, normal mood Skin exam: Present: warm, dry, intact, normal color. Absent: rash Course Vital Signs 02/06/21 02/06/21 14:30 16:10 Temperature 98.2 F 97.8 F Pulse Rate 77 52 L Respiratory 18 16 Rate Blood Pressure 171/86 168/73 O2 Sat by Pulse 98 99 Oximetry Procedures - Bursa Procedures Consent Obtained: verbal consent (performed by Dr Garcia) Indications: aspiration/injection Side of Body: left Site of Procedure: olecranon bursa XRAY Obtained: none Local Anesthetic Used: Lidocaine 1%, with Epi Amount of Anesthesia Used (mls): 2 Fluid Obtained (mls): 19 Fluid Type: bloody Patient Tolerated Procedure: well Complications: none Medical Decision Making - Medical Decision Making Patient did not sustain an injury, there is no erythema or pain associated with the bursal swelling. Patient does take eloquis. Dr Garcia drained 19ml of blood from left olecranon bursa. Patient was wrapped with an Davonte wrap and directed to follow up with orthopedics and return with any worsening symptoms or pain or fev er. Disposition Clinical Impression: Effusion of olecranon bursa Disposition: HOME SELF-CARE Condition: Good Instructions (If sedation given, give patient instructions): Elbow Bursitis (ED) Additional Instructions: Keep Davonte wrap in place until seen by primary care doctor or orthopedics.. Return to emergency room if any worsening symptoms including pain or fever. Is patient prescribed a controlled substance at d/c from ED?: No Referrals: Anamika Cox MD [Primary Care Provider] - 1-2 days Jeffry Juares PAC [PHYSICIAN [employer] SEWER] - 1-2 days Time of Disposition: 15:54
[2021-02-06 16:13] VITALS: BP 168/73; PULSE 52; RESP 16; TEMP 97.8
== END 2021-02-06 16:12 | disposition home or self-care (01) ==
LOC: EC 14:28
DX: M25.422 Effusion, left elbow (principal); I48.91 Unspecified atrial fibrillation; E11.9 Type 2 diabetes mellitus without complications; K21.9 Gastro-esophageal reflux disease without esophagitis; I10 Essential (primary) hypertension; I25.2 Old myocardial infarction; E78.5 Hyperlipidemia, unspecified; Z79.01 Long term (current) use of anticoagulants; Z85.528 Personal history of other malignant neoplasm of kidney; Z79.84 Long term (current) use of oral hypoglycemic drugs; Z87.891 Personal history of nicotine dependence; Z95.1 Presence of aortocoronary bypass graft
CPT/HCPCS: 20605; 99283

== ENCOUNTER → 2021-07-11 | Outpatient (CLI) | payer MEDICARE, OTHER ==
[2021-07-11 12:29] LABS: Appearance,Urine Clear (Clear); Bilirubin,Urine Negative (Negative); Blood,Urine Negative (Negative); Color,Urine Light Yellow; Glucose,Urine (UA) 3+ (Negative); Ketones,Urine Negative (Negative); Leukocyte Esterase,Urine Negative (Negative); Nitrite,Urine Negative (Negative); PH, Urine 6.5 (5.0-8.0); Protein,Urine 1+ (Negative); RBC,Urine <1 /hpf (0-5); Specific Gravity,Urine 1.016 (1.001-1.035); Urobilinogen,Urine <2.0 mg/dL (<2.0); WBC,Urine 2 /hpf (0-5)
[2021-07-11 18:33] LABS: HCT 42.9 % (39.6-50.0); HGB 13.9 g/dL (13.0-17.0); MCH 29.3 pg (27.0-32.0); MCHC 32.4 g/dL (32.0-37.0); MCV 90.3 fL (80.0-97.0); Mean Platelet Volume 9.3 fL (9.5-12.2); Platelet Count 250 X 10*3/uL (140-440); RBC 4.75 X 10*6/uL (4.40-5.60); RDW 12.9 % (11.5-14.5); WBC 5.44 X 10*3/uL (4.50-10.00)
[2021-07-11 18:55] LABS: % Iron Saturation 22.19 (15.00-50.00); African American GFR (CKD) 43.2 (60.0-200.0); Albumin/Globulin Ratio 1.54 (1.60-3.17); Anion Gap 13.2 mmol/L (10.00-18.00); Blood Urea Nitrogen 28.8 mg/dL (9.0-27.0); Calcium 9.2 mg/dL (8.7-10.3); Carbon Dioxide 20.8 mmol/L (20.0-27.5); Globulin 2.6 g/dL (1.6-3.3); Magnesium 2.3 mg/dL (1.5-2.4); Non-African American GFR(CKD) 37.3 (60.0-200.0); Phosphorus 3.3 mg/dL (2.4-5.1); Total Bilirubin 0.3 mg/dL (0.30-1.20); Total Protein 6.6 g/dL (6.2-8.2); Uric Acid 4.4 mg/dL (3.7-8.7)
[2021-07-11 23:03] LABS: Urine Creatinine 63.1 mg/dL (39.0-259.0)
== END | disposition home or self-care (01) ==
LOC: LABWHC1 10:47
PROVIDERS: ATTEND Nurse Practitioner Family
DX: N25.81 Secondary hyperparathyroidism of renal origin (principal); N18.9 Chronic kidney disease, unspecified; E55.9 Vitamin D deficiency, unspecified; N39.0 Urinary tract infection, site not specified; D64.9 Anemia, unspecified; M10.9 Gout, unspecified
CPT/HCPCS: 36415; 80053; 81001; 82043; 82306; 82570; 82728; 83036; 83540; 83550; 83735; 83970; 84100; 84550; 85027

== ENCOUNTER → 2021-10-12 | Outpatient (CLI) | payer MEDICARE, OTHER ==
[2021-10-12 10:43] LABS: HCT 46.2 % (39.6-50.0); HGB 14.5 g/dL (13.0-17.0); MCH 29.7 pg (27.0-32.0); MCHC 31.4 g/dL (32.0-37.0); MCV 94.5 fL (80.0-97.0); NRBC Per 100 WBC 0 /100 WBCS (0.0-0.0); Platelet Count 297 X 10*3/uL (140-440); RBC 4.89 X 10*6/uL (4.40-5.60); RDW 12.7 % (11.5-14.5); WBC 7.43 X 10*3/uL (4.50-10.00)
[2021-10-12 11:03] LABS: ALT 23 U/L (10-49); AST 21 U/L (14-35); African American GFR (CKD) 40.2 (60.0-200.0); Albumin 4.1 g/dL (3.8-4.9); Albumin/Globulin Ratio 1.37 (1.60-3.17); Alkaline Phosphatase 57 U/L (41-126); Blood Urea Nitrogen 26.6 mg/dL (9.0-27.0); Calcium 9.3 mg/dL (8.7-10.3); Carbon Dioxide 19.2 mmol/L (20.0-27.5); Chloride 105 mmol/L (96-109); Chol/HDL Ratio 4.27 Ratio; Glucose 161 mg/dL (70-110); LDL Cholesterol,Calculated 105.8 mg/dL (0.0-131.0); Non-African American GFR(CKD) 34.7 (60.0-200.0); Potassium 4.6 mmol/L (3.5-5.5); Sodium 137 mmol/L (135-145); Total Protein 7.1 g/dL (6.2-8.2)
[2021-10-12 19:49] LABS: Urine Creatinine 75.8 mg/dL (39.0-259.0)
== END | disposition home or self-care (01) ==
LOC: LABWHC1 07:29
PROVIDERS: ATTEND Physician Assistant Medical
DX: I10 Essential (primary) hypertension (principal); E11.65 Type 2 diabetes mellitus with hyperglycemia
CPT/HCPCS: 36415; 80053; 80061; 82043; 82570; 83036; 84153; 84443; 85027

== ENCOUNTER 2021-10-24 07:10 | Day surgery (SDC) | payer MEDICARE, OTHER ==
[2021-10-23 13:21] VITALS: BMI 37.5
[~2021-10-24 07:10] MED LIST changes: +ATROPINE OPHTH SOLN 1% 5ML BTL OPHTHALMIC PRN; +LIDOCAINE 1% (10MG/ML) FOR IV START INTRADERMA PRN; -LIDOCAINE 1% 20 ML VIAL (10MG/ML) FOR IV START INTRADERMA PRN; -MOXIFLOXACIN HCL 0.5% DROPS 3 ML BTL OP NR; +MOXIFLOXACIN HCL 0.5% DROPS 3 ML BTL OP PRN; -TETRACAINE 0.5% OPHTH (PF) DROPS 4 ML BTL OP NR; +TETRACAINE 0.5% OPHTH (PF) DROPS 4 ML BTL OP PRN; -TIMOLOL 0.5% OPHTH DROPS 5 ML BTL OP NR; +mitoMYcin for Eyes 0.06 MG, EMPTY SYRINGE 1 SYR OP PRN
[2021-10-24] MEDS: PILOCARPINE 2% OPHTH DROPS 15 ML BTL OP PRN ×3 (07:30→07:45)
[2021-10-24 07:44] VITALS: TEMP 96.8
[2021-10-24 07:45] LABS: Glucose,Whole Blood 147 mg/dL (75-99)
[2021-10-24] MEDS ORDERED: fentaNYL (PF) 50 MCG/ML 2 ML AMP ONE (08:35)
[2021-10-24] MEDS ORDERED: MIDAZOLAM 2 MG/2 ML VIAL ONE (08:35)
[2021-10-24] MEDS ORDERED: ATROPINE OPHTH SOLN 1% 2 ML BTL RIGHT EYE ONE (09:03)
[2021-10-24] MEDS ORDERED: BALANCED SALT IRRIG SOLN COMB2 15 ML IRRIG.SOLN IRRIGATION ONE (09:04)
[2021-10-24] MEDS ORDERED: DUOVISC KIT (GREEN BOX) INTRAOCULA ONE (09:04)
[2021-10-24] MEDS ORDERED: LIDOCAINE 2%-EPI 1:100,000 20 ML VIAL SQ ONE (09:04)
--- NOTE | 2021-10-24 09:51 | P.OP ---
Date of Procedure: 10/24/21 Preoperative Diagnosis: POAG severe Postoperative Diagnosis: same Procedure(s) Performed: trabeculectomy with MMC Implants: ex-Press shunt P-50 Anesthesia: MAC Surgeon: Rubin Cardona Pathology: none sent Condition: stable Disposition: same day Indications for Procedure: poor glaucoma control Operative Findings: No complications
[2021-10-24 10:21] VITALS: PULSE 55; RESP 16
[2021-10-24 10:22] VITALS: BP 159/83
--- NOTE | 2021-10-25 11:20 | OP ---
OPERATIVE REPORT DATE OF SURGERY: October 24, 2021. PROCEDURE: Trabeculectomy with mitomycin of the right eye. PREOPERATIVE DIAGNOSIS: Primary open-angle glaucoma, severe stage. POSTOPERATIVE DIAGNOSIS: Primary open angle glaucoma, severe stage. SURGEON: Dr. Rubin Cardona. ANESTHESIA: Topical. ESTIMATED BLOOD LOSS: 5 mL. SPECIMEN TAKEN: None. NARRATIVE: After obtaining the appropriate consent, the patient was brought to the operating room. There he was placed under cardiac monitoring, prepped and draped in the usual sterile manner. He was approached from his 12 o'clock position and a traction suture of 6.0 silk was placed through the superior limbus of the cornea and secured to the drape putting the eye in the down gaze position. At the 10 o'clock position, a small peripheral conjunctival incision was created using Tali scissors. Through this opening, a 2% lidocaine with epinephrine was bluntly instilled through the superior portion of the patient's eye in a subtenon's fashion. Once this was infiltrated, then using blunt dissections, dissection with the Tali scissors and a small peritomy which was continued from the temporal incision to approximately 1 o'clock was completed without difficulty carrying further the blunt dissection as far posteriorly as possible on the patient's eye. Hemostasis was controlled using wet-field cautery and central area of approximately 3 x 3 at the 12 o'clock position adjacent to the limbus was identified and marked with gentian sanjuana. This area was outlined with the bipolar cautery and a 2.5 mm crescent blade was used to create a partial thickness scleral tunnel. Either side of the tunnel was then incised with the Tali scissors to create a partial thickness scleral flap. At this stage of the game, it was identified that entry had been made into the anterior chamber and therefore using Calibri forceps, a small peripheral section of iris was elevated through the opening and an iridectomy was created with the Vannas scissor. The iris was then replaced back through the superior limbal opening. An MVR blade was then used to incise vertically. A small scleral flap of the bed of the sclerae from the opening approximately 2 mm posterior to the corneal limbus. This was removed neatly with the Vannas scissors creating a 2 x 2 opening underneath the partial-thickness scleral flap. A free flow of aqueous was noted without any indication of iris following through the opening. The scleral flap was then secured moderately tightly with two 10-0 nylon sutures on either side of the flap, which were trimmed closely. The mitomycin of 0.2 mg/mL was applied using the mitomycin soaked Weck-lydia spear and this was left adjacent to the sclerae with conjunctiva brought over the top of this dampened sponge for 3 minutes. Sponge and instruments were totally removed from the field at the end of the 3 minute dwell time and the conjunctiva and superior limbus of the cornea were copiously irrigated with balanced salt solution. Conjunctiva was then brought over the superior limbus of the cornea and using 8-0 Vicryl sutures, the conjunctival incision at the 10 o'clock area was closed and was confirmed watertight with fluorescein. The patient then received 2 drops of 0.5% moxifloxacin and 2 drops of 1% atropine. The eye was then carefully patched and shielded in the usual manner. There were no complications from the procedure. He tolerated the procedure well and returned to outpatient recovery in good condition. MMLAURA / MAXIMINO: [id number] /
== END 2021-10-24 10:42 | disposition home or self-care (01) ==
LOC: OR 07:10
PROVIDERS: ATTEND Ophthalmology
DX: H40.1113 Primary open-angle glaucoma, right eye, severe stage (principal); E11.9 Type 2 diabetes mellitus without complications; H52.223 Regular astigmatism, bilateral; Z96.1 Presence of intraocular lens; I51.9 Heart disease, unspecified; Z87.442 Personal history of urinary calculi; Z95.1 Presence of aortocoronary bypass graft; Z95.0 Presence of cardiac pacemaker; Z98.890 Other specified postprocedural states; Z87.891 Personal history of nicotine dependence; Z79.01 Long term (current) use of anticoagulants; Z79.899 Other long term (current) drug therapy; Z79.84 Long term (current) use of oral hypoglycemic drugs; Z88.8 Allergy status to other drugs, medicaments and biological substances
CPT/HCPCS: 66170; J2250; J3010

== ENCOUNTER → 2022-02-22 | Outpatient (CLI) | payer MEDICARE, OTHER ==
[2022-02-22 15:46] LABS: LDL Cholesterol,Calculated 96.8 mg/dL (0.0-131.0)
[2022-02-22 15:47] LABS: ALT 19 U/L (10-49); AST 20 U/L (14-35); African American GFR (CKD) 40.2 (60.0-200.0); Albumin 4.4 g/dL (3.8-4.9); Albumin/Globulin Ratio 1.99 (1.60-3.17); Alkaline Phosphatase 62 U/L (41-126); BUN/Creat Ratio 13.84 Ratio (12.00-20.00); Blood Urea Nitrogen 26.3 mg/dL (9.0-27.0); Calcium 9.7 mg/dL (8.7-10.3); Carbon Dioxide 23.1 mmol/L (20.0-27.5); Chloride 103 mmol/L (96-109); Chol/HDL Ratio 4.69 Ratio; Globulin 2.2 g/dL (1.6-3.3); Glucose 85 mg/dL (70-110); Non-African American GFR(CKD) 34.7 (60.0-200.0); Potassium 4.9 mmol/L (3.5-5.5); Sodium 139 mmol/L (135-145); Total Protein 6.6 g/dL (6.2-8.2)
[2022-02-22 18:43] LABS: Urine Creatinine 73.5 mg/dL (39.0-259.0)
== END | disposition home or self-care (01) ==
LOC: LABWHC1 07:43
PROVIDERS: ATTEND Internal Medicine Endocrinology, Diabetes & Metabolism
DX: E11.65 Type 2 diabetes mellitus with hyperglycemia (principal)
CPT/HCPCS: 36415; 80053; 80061; 82043; 82570; 83036; 84443

== ENCOUNTER → 2022-06-24 | Outpatient (CLI) | payer MEDICARE, OTHER ==
[2022-06-24 10:58] LABS: ALT 29 U/L (10-49); AST 26 U/L (14-35); Albumin 4.5 g/dL (3.8-4.9); Albumin/Globulin Ratio 1.84 (1.60-3.17); Alkaline Phosphatase 61 U/L (41-126); BUN/Creat Ratio 12.72 Ratio (12.00-20.00); Blood Urea Nitrogen 24.3 mg/dL (9.0-27.0); Calcium 9.7 mg/dL (8.7-10.3); Carbon Dioxide 25.8 mmol/L (20.0-27.5); Chloride 103 mmol/L (96-109); Chol/HDL Ratio 4.24 Ratio; Globulin 2.5 g/dL (1.6-3.3); Glucose 136 mg/dL (70-110); Non-African American GFR(CKD) 34.5 (60.0-200.0); Potassium 4.8 mmol/L (3.5-5.5); Sodium 139 mmol/L (135-145)
[2022-06-24 11:48] LABS: Urine Creatinine 66.8 mg/dL (39.0-259.0)
== END | disposition home or self-care (01) ==
LOC: LABWHC1 07:58
PROVIDERS: ATTEND Internal Medicine Endocrinology, Diabetes & Metabolism
DX: E11.65 Type 2 diabetes mellitus with hyperglycemia (principal)
CPT/HCPCS: 36415; 80053; 80061; 82043; 82570; 83036; 84443

== ENCOUNTER → 2022-11-04 | Outpatient (CLI) | payer MEDICARE, OTHER ==
[2022-11-04 15:39] LABS: HCT 45.5 % (39.6-50.0); HGB 14.7 g/dL (13.0-17.0); MCHC 32.3 g/dL (32.0-37.0); MCV 92.9 fL (80.0-97.0); Mean Platelet Volume 8.8 fL (9.5-12.2); NRBC Per 100 WBC 0 /100 WBCS (0.0-0.0); Platelet Count 258 X 10*3/uL (140-440); RDW 12.6 % (11.5-14.5); WBC 6.44 X 10*3/uL (4.50-10.00)
[2022-11-04 15:52] LABS: ALT 21 U/L (10-49); AST 25 U/L (14-35); African American GFR (CKD) 43.8 (60.0-200.0); Albumin 4.2 g/dL (3.8-4.9); Alkaline Phosphatase 64 U/L (41-126); BUN/Creat Ratio 16.93 Ratio (12.00-20.00); Blood Urea Nitrogen 29.8 mg/dL (9.0-27.0); Calcium 9.5 mg/dL (8.7-10.3); Carbon Dioxide 19.4 mmol/L (20.0-27.5); Chloride 105 mmol/L (96-109); Chol/HDL Ratio 4.76 Ratio; Globulin 2.5 g/dL (1.6-3.3); Glucose 153 mg/dL (70-110); LDL Cholesterol,Calculated 100.8 mg/dL (0.0-131.0); Non-African American GFR(CKD) 37.8 (60.0-200.0); Potassium 4.6 mmol/L (3.5-5.5); Sodium 138 mmol/L (135-145); Total Protein 6.7 g/dL (6.2-8.2)
== END | disposition home or self-care (01) ==
LOC: LABWHC1 07:44
PROVIDERS: ATTEND Internal Medicine Endocrinology, Diabetes & Metabolism
DX: E11.65 Type 2 diabetes mellitus with hyperglycemia (principal); Z12.5 Encounter for screening for malignant neoplasm of prostate
CPT/HCPCS: 36415; 80053; 80061; 83036; 84153; 84443; 85027

== ENCOUNTER → 2023-02-15 | Outpatient (CLI) | payer MEDICARE, OTHER ==
[2023-02-15 13:56] LABS: Urine Creatinine 57.4 mg/dL (39.0-259.0)
[2023-02-15 15:21] LABS: ALT 25 U/L (10-49); AST 28 U/L (14-35); Albumin 4.3 d/dL (3.8-4.9); Albumin/Globulin Ratio 1.87 Ratio (1.60-3.17); Alkaline Phosphatase 49 U/L (41-126); BUN/Creat Ratio 15.38 Ratio (12.00-20.00); Blood Urea Nitrogen 32.3 mg/dL (9.0-27.0); Calcium 9.7 mg/dL (8.7-10.3); Carbon Dioxide 15.7 mmol/L (21.6-31.8); Chloride 106 mmol/L (96-109); Chol/HDL Ratio 4.21 Ratio; Globulin 2.3 d/dL (1.6-3.3); Glucose 86 mg/dL (70-110); LDL Cholesterol,Calculated 91.8 mg/dL (0.0-131.0); Potassium 4.7 mmol/L (3.5-5.5); Sodium 140 mmol/L (135-145); Total Bilirubin 0.3 mg/dL (0.3-1.2); Total Protein 6.6 d/dL (6.2-8.2)
== END | disposition home or self-care (01) ==
LOC: LABWHC1 07:58
PROVIDERS: ATTEND Internal Medicine Endocrinology, Diabetes & Metabolism
DX: E11.65 Type 2 diabetes mellitus with hyperglycemia (principal)
CPT/HCPCS: 36415; 80053; 80061; 82043; 82570; 84443

== ENCOUNTER → 2023-04-16 | Outpatient (CLI) | payer MEDICARE, OTHER ==
[2023-04-16 16:24] LABS: BUN/Creat Ratio 16.44 Ratio (12.00-20.00); Blood Urea Nitrogen 29.6 mg/dL (9.0-27.0); Calcium 9.9 mg/dL (8.7-10.3); Carbon Dioxide 22.3 mmol/L (21.6-31.8); Chloride 102 mmol/L (96-109); Glucose 159 mg/dL (70-110); HCT 48.4 % (39.6-50.0); HGB 15.6 d/dL (13.0-17.0); MCH 30.5 pg (27.0-32.0); MCHC 32.2 d/dL (32.0-37.0); MCV 94.7 FL (80.0-97.0); Mean Platelet Volume 8.9 FL (9.5-12.2); NRBC Per 100 WBC 0 X 10*3/uL (0.00-0.01); Platelet Count 281 X 10*3/uL (140-440); Potassium 5.4 mmol/L (3.5-5.5); RBC 5.11 X 10*6/uL (4.40-5.60); RDW 12.9 % (11.5-14.5); Sodium 137 mmol/L (135-145); WBC 8.13 X 10*3/uL (4.50-10.00)
== END | disposition home or self-care (01) ==
LOC: LABWHC1 09:51
PROVIDERS: ATTEND Internal Medicine Cardiovascular Disease
DX: I25.5 Ischemic cardiomyopathy (principal); I25.10 Atherosclerotic heart disease of native coronary artery without angina pectoris
CPT/HCPCS: 36415; 80048; 84443; 85027

== ENCOUNTER 2023-04-22 06:33 | Day surgery (SDC) | payer MEDICARE, OTHER ==
[~2023-04-22 06:33] MED LIST changes: +ALPRAZolam 0.25 MG TAB PO PRN; +ALPRAZolam 0.5 MG TAB PO PRN; +ASPIRIN 325 MG TAB PO STA; +ATORVASTATIN 80 MG TAB PO STA; -ATROPINE OPHTH SOLN 1% 5ML BTL OPHTHALMIC PRN; -LACTATED RINGERS 1,000 ML IV SCH; -LIDOCAINE 1% (10MG/ML) FOR IV START INTRADERMA PRN; -MOXIFLOXACIN HCL 0.5% DROPS 3 ML BTL OP PRN; +NITROGLYCERIN SL TABS 0.4 MG TAB SUBLINGUAL PRN; +SODIUM CHLORIDE 0.9% 1,000 ML in EMPTY BAG 1 BAG IV SCH; -TETRACAINE 0.5% OPHTH (PF) DROPS 4 ML BTL OP PRN; -mitoMYcin for Eyes 0.06 MG, EMPTY SYRINGE 1 SYR OP PRN
[2023-04-22] MEDS ORDERED: HEPARIN SODIUM,PORCINE (1 ML) 2,500 UNIT in SODIUM CHLORIDE 0.9% 250 ML IRRIGATION PRN (07:00)
[2023-04-22] MEDS ORDERED: HEPARIN SODIUM,PORCINE 10,000 UNIT in SODIUM CHLORIDE 0.9% 1,000 ML IRRIGATION PRN (07:00)
[2023-04-22 07:20] LABS: Glucose,Whole Blood 152 mg/dL (70-110)
[2023-04-22 07:22] VITALS: RESP 18; TEMP 98
[2023-04-22] MEDS ORDERED: fentaNYL (PF) 50 MCG/ML 2 ML AMP ONE (10:33)
[2023-04-22] MEDS ORDERED: LIDOCAINE 1% INJ 10MG/ML (20 ML MDV) ONE (10:33)
[2023-04-22] MEDS ORDERED: MIDAZOLAM 2 MG/2 ML VIAL IVP ONE (10:50)
[2023-04-22] MEDS ORDERED: fentaNYL (PF) 50 MCG/ML 2 ML AMP IVP ONE (10:50)
[2023-04-22] MEDS ORDERED: LIDOCAINE 1% INJ 10MG/ML (20 ML MDV) SQ ONE (10:50)
[2023-04-22] MEDS ORDERED: IOPAMIDOL-370 100ML BTL INJ ONE ×2 (11:16→11:29)
--- NOTE | 2023-04-22 12:28 | CC ---
CARDIAC CATHETERIZATION REPORT INDICATIONS: Exertional shortness of breath in a patient with known CAD status post prior bypass surgery. His ejection fraction is around 45%. He had PADILLA to LAD venous graft to OM and radial graft to PDA in 2003. PROCEDURE NOTE: After obtaining informed consent, left heart catheterization and coronary angiogram and selective injection of the bypass grafts has been performed via the right femoral artery using standard Jakob catheters. The patient tolerated the procedure well without any obvious immediate complications. A femoral angiogram was performed, and Angio-Seal was deployed for hemostasis. The patient has a creatinine of 1.8 with a contrast threshold of 120 mL. The patient was hydrated prior to catheterization and we will continue to hydrate him. I used a total of about 90 mL of the contrast. FINDINGS: 1. Hemodynamics: Left ventricular end-diastolic pressure is 11 mm. There is no significant gradient across the aortic valve. 2. Left Ventriculogram: Not performed. 3. Angiographic Data: a.[place] left main coronary artery appears calcified, divides into LAD and circumflex coronary artery. LAD appears totally occluded in its midportion. Circumflex coronary artery has a tight lesion proximally and in the mid to distal portion right coronary artery appears totally occluded. 4. Selective injection of the bypass grafts. a.PADILLA to LAD appears patent. Proximal and distal anastomotic sites are free of disease and [place] LAD is free of disease. The venous graft to the OM appears to be occluded. b. Radial graft to the PDA appears patent. CONCLUSION: Severe three-vessel coronary artery disease with patent PADILLA to LAD and patent radial artery graft to the PDA, probably occluded venous graft to the OM. PLAN: I am going to review angiographic data with Dr. Brennan, the on-call visual training aide and see if we can perform angioplasty of the [place] circumflex coronary artery for symptom alleviation. I am going to hydrate him and discharge him home this afternoon known and see him back in the office and decide on further course of action, MMODL / IJN: [id number] /
[2023-04-22] MEDS ORDERED: RX INFO: IV CONTRAST WAS GIVEN 1 EACH MISC MISCELLANE PRN (13:09)
[2023-04-22 16:01] VITALS: BP 141/79; PULSE 52
== END 2023-04-22 16:02 | disposition home or self-care (01) ==
LOC: CATHCVL 06:33
PROVIDERS: ATTEND Internal Medicine Cardiovascular Disease
DX: I25.10 Atherosclerotic heart disease of native coronary artery without angina pectoris (principal); I25.5 Ischemic cardiomyopathy; Z95.1 Presence of aortocoronary bypass graft
CPT/HCPCS: 93459; C1760; C1769 ×2; C1894; J2250; J2001; J3010; Q9967

== ENCOUNTER 2023-04-26 07:37 | Emergency (ER) | payer MEDICARE, OTHER ==
[2023-04-26 07:50] VITALS: RESP 18
[2023-04-26] MEDS ORDERED: PROPARACAINE 0.5% OPHTH DROPS 15 ML BTL RIGHT EYE STA (07:52)
[2023-04-26] MEDS ORDERED: FLUORESCEIN STRIPS 1 MG STRIP RIGHT EYE ONE (07:52)
[2023-04-26] MEDS ORDERED: ONDANSETRON ODT 4 MG TAB PO STA (07:52)
--- NOTE | 2023-04-26 07:58 | ED ---
Eye Problem HPI - General Chief complaint: Nausea/Vomiting/Diarrhea Stated complaint: R Eye Issue Time Seen by Provider: 04/26/23 07:45 Source: patient, RN notes reviewed Mode of arrival: ambulatory Limitations: no limitations - History of Present Illness Initial comments: This is a 72-year-old male who presents to the emergency department for right eye pain. States that when he woke up his right eye was crusted over. He also felt pain and pressure to this area and felt like it was difficult to see out of the eye. States that he also feels nauseous. Denies any injuries to the eye. He is not a contact lens wearer. States that he had no issues yesterday. He does report a hx of glaucoma and had a trabeculectomy of the right eye in October 2021 MD chief complaint: eye pain, eye redness - Related Data Home Medications Medication Instructions Recorded Confirmed Atorvastatin [Lipitor] 80 mg PO HS 04/07/15 04/22/23 amLODIPine [Norvasc] 10 mg PO DAILY 04/07/15 04/22/23 Fenofibrate [Lofibra] 160 mg PO HS 04/30/17 04/22/23 carvediloL 25 mg PO BID 03/02/18 04/22/23 Cholecalciferol [Vitamin D3 (25 2,000 unit PO DAILY 04/26/19 04/22/23 Mcg = 1000 Iu)] Ferrous Sulfate [Iron (65 MG 325 mg PO DAILY 04/26/19 04/22/23 Elemental)] Glimepiride [Amaryl] 4 mg PO DAILY 11/30/19 04/22/23 hydrALAZINE HCL [Apresoline] 100 mg PO TID 11/30/19 04/22/23 Dulaglutide [Trulicity] 1.5 mg SQ TU 10/01/21 04/22/23 Dapagliflozin Propanediol [Farxiga] 10 mg PO DAILY 04/18/23 04/22/23 Potassium Citrate [Potassium 10 meq PO TID 04/18/23 04/22/23 Citrate ER] Aspirin 81 mg PO DAILY PRN 04/22/23 04/22/23 Previous Rx's Medication Instructions Recorded Apixaban [Eliquis] 5 mg PO BID #0 04/22/23 Allergies Allergy/AdvReac Type Severity Reaction Status Date / Time losartan potassium Allergy Dyspnea Verified 04/26/23 07:45 [From Jeovanny] Review of Systems ROS Statement: Those systems with pertinent positive or pertinent negative responses have been documented in the HPI. ROS Other: All systems not noted in ROS Statement are negative. Past Medical History Past Medical History: Atrial Fibrillation, Coronary Artery Disease (CAD), Cancer, Chest Pain / Angina, Diabetes Mellitus, Eye Disorder, GERD/Reflux, Hyperlipidemia, Hypertension, Myocardial Infarction (SD) Additional Past Medical History / Comment(s): Bilateral glaucoma, Right kidney cancer- kidney removed. hx kidney stones. SOB with very little activity mild chest pain, recent stress test, per pt. Last Myocardial Infarction Date:: 2006 or 2003 History of Any Multi-Drug Resistant Organisms: None Reported Past Surgical History: Coronary Bypass/CABG, Orthopedic Surgery, Pacemaker Additional Past Surgical History / Comment(s): LEFT SHOULDER REPAIR, RIGHT SHOULDER ROTATOR CUFF REPAIR X2 2009, LEFT KNEE CARTILAGE REPAIR 1966, GANGLIAN CYST REMOVED FROM RIGHT WRIST 1994, RIGHT ACHILLES TENDON REPAIR 2006, CLOSED HEAD INJURY ([facility]) WORK RELATED INJURY 1985, jessica cataract surgery, Right kidney removal, pacemaker Past Anesthesia/Blood Transfusion Reactions: No Reported Reaction Type of Cardiac Device: Permanent Pacemaker Device Placement Date:: [employer] [id number] Past Psychological History: No Psychological Hx Reported Smoking Status: Former smoker Past Alcohol Use History: Occasional - Past Family History Mother Family Medical History: Cancer Additional Family Medical History / Comment(s): Passed since. Father Family Medical History: Coronary Artery Disease (CAD) General Exam Limitations: no limitations General appearance: alert, in no apparent distress Head exam: Present: atraumatic, normocephalic, normal inspection Eye exam: Present: other (Conjunctival injection to the right eye with a hazy cornea and sluggish pupil.) Expanded Visual acuity (R) = 20/: 100 Visual acuity (L) = 20/: 40 With correction: Yes IOP (R) in mmH IOP (L) in mmH IOP measured with: Tonopen Respiratory exam: Present: normal lung sounds bilaterally. Absent: respiratory distress, wheezes, rales, rhonchi, stridor Cardiovascular Exam: Present: regular rate, normal rhythm, normal heart sounds. Absent: systolic murmur, diastolic murmur, rubs, gallop, clicks Neurological exam: Present: alert, oriented X3, CN II-XII intact Psychiatric exam: Present: normal affect, normal mood Skin exam: Present: warm, dry, intact, normal color. Absent: rash Course Vital Signs 04/26/23 04/26/23 07:42 12:06 Temperature 98.7 F 97.9 F Pulse Rate 82 62 Respiratory 18 18 Rate Blood Pressure 169/102 169/87 O2 Sat by Pulse 98 97 Oximetry Medical Decision Making - Medical Decision Making This is a 72-year-old male who presents to the emergency department for right eye pain and nausea. Was pt. sent in by a medical professional or institution? @ -No Did you speak to anyone other than the patient for history? @ -No Did you review nursing and triage notes? @ -Yes, and I agree, it is accurate with regards to the patient's symptoms. Were old charts reviewed? @ -No Differential Diagnosis? @ -Differential Eye Pain: Conjuncitivitis (viral, bacterial, allergic), corneal abrasion, foreign body, iritis, uveitis, keratitis, acute angle closure glaucoma, this is not meant to be an all-inclusive list. EKG interpreted by me (3pts min.)? @ -Not obtained X-rays interpreted by me (1pt min.)? @ -Not obtained CT interpreted by me (1pt min.)? @ -Not obtained U/S interpreted by me (1pt. min.)? @ -Not obtained What testing was considered but not performed? (CT, X-rays, U/S, labs)? Why? @ -None What meds were considered but not given? Why? @ -None Did you discuss the management of the patient with other professionals? @ -Yes, Dr. Barrientos, ophthalmology, who advised IV Diamox and using both Cosopt and latanoprost eyedrops, alternating with each medication, every 5 minutes, for a total of 4 doses, and then checking his pressure an hour afterwards. After his pressure came down, he advised having him continue on the Cosopt twice daily and the latanoprost at bedtime with follow up in the office on Friday. Did you reconcile home meds? @ -No Was smoking cessation discussed for >3mins.? @ -No Was critical care preformed (if so, how long)? @ -No Were there social determinants of health that impacted care today? How? (Homelessness, low income, unemployed, alcoholism, drug addiction, transportation, low edu. Level, literacy, decrease access to med. care, custodial, rehab)? @ -No Was there de-escalation of care discussed even if they declined? (Discuss DNR or withdrawal of care, Hospice)? @ -No What co-morbidities impacted this encounter? (DM, HTN, Smoking, COPD, CAD, Cancer, CVA, Hep., AIDS, mental health diagnosis, sleep apnea, morbid obesity)? @ -Glaucoma, DM Was patient admitted / discharged? @ -Discharged. Physical examination is concerning for acute angle closure glaucoma due to the elevated intraocular pressure of 34, poor visual acuity of 20/100, substantial conjunctival injection, and the hazy cornea. Fluorescein staining did not identify any evidence of a corneal abrasion. Patient also proceeded to vomit on arrival and this was treated with Zofran. Case was discussed with Dr. Barrientos, ophthalmology. He advised IV Diamox and using both Cosopt and latanoprost eyedrops, alternating with each medication, every 5 minutes, for a total of 4 doses, and then checking his pressure an hour afterwards. Pressure was rechecked afterwards and found to be 20. He did also have improvement in pain but still had difficulty seeing out of that eye. I spoke with Dr. Barrientos afterwards, and he advised that the patient could be discharged home with plan to follow-up with him in the office on Friday. He also advised having him continue on the Cosopt twice daily and the latanoprost at bedtime until follow-up in the office. Patient's expresses understanding and was discharged home in stable condition. Undiagnosed new problem with uncertain prognosis? @ -None Drug Therapy requiring intensive monitoring for toxicity (Heparin, Nitro, Insulin, Cardizem)? @ -None Were any procedures done? @ -None Diagnosis/symptom? @ -Acute angle closure glaucoma Acute, or Chronic, or Acute on Chronic? @ -Acute Uncomplicated (without systemic symptoms) or Complicated (systemic symptoms)? @ -Complicated Side effects of treatment? @ -None Exacerbation, Progression, or Severe Exacerbation] @ -Not applicable Poses a threat to life or bodily function? @ -Yes, this poses risk to his vision Return precautions reviewed in depth, the patient is instructed to return to the emergency department with any new, worsening, or concerning symptoms. Patient verbalized understanding. This case was discussed in detail with the attending ED physician, Dr. Rajput. Presentation, findings, and treatment plan discussed in detail as well. Disposition Clinical Impression: Acute angle-closure glaucoma, right eye Disposition: HOME SELF-CARE Instructions (If sedation given, give patient instructions): Glaucoma (ED) Additional Instructions: Return to the emergency department with any new, worsening, or concerning sym ptoms. Continue using the Cosopt drops twice daily and the Latanoprost drops at bedtime. Contact Dr. Barrientos's office on Friday and they will schedule you to be seen that day. You can also contact Dr. Cardona's office and let them know that you were seen in the emergency department for acute angle closure glaucoma. Is patient prescribed a controlled substance at d/c from ED?: No Referrals: Izzy Waggoner DO [Primary Care Provider] - 1-2 days Jasen Barrientos MD [STAFF PHYSICIAN] - 1-2 days
[2023-04-26] MEDS ORDERED: ONDANSETRON 4 MG/2 ML VIAL IM STA (08:05)
[2023-04-26] MEDS ORDERED: DORZOLAMIDE-TIMOLOL 2.23%/0.68 10ML BTL RIGHT EYE ONE (09:23)
[2023-04-26] MEDS ORDERED: LATANOPROST 0.005% OPHTH DROPS 2.5 ML BTL RIGHT EYE ONE (09:24)
[2023-04-26] MEDS ORDERED: ONDANSETRON 4 MG ODT STARTER PACK 2 TAB BTL PO STA (11:52)
[2023-04-26 12:15] VITALS: BP 169/87; PULSE 62; TEMP 97.9
== END 2023-04-26 12:10 | disposition home or self-care (01) ==
LOC: EC 07:37
DX: H40.211 Acute angle-closure glaucoma, right eye (principal); E11.9 Type 2 diabetes mellitus without complications; I25.10 Atherosclerotic heart disease of native coronary artery without angina pectoris; I48.91 Unspecified atrial fibrillation; I25.2 Old myocardial infarction; I10 Essential (primary) hypertension; E78.5 Hyperlipidemia, unspecified; Z87.891 Personal history of nicotine dependence; Z88.8 Allergy status to other drugs, medicaments and biological substances; Z79.84 Long term (current) use of oral hypoglycemic drugs; Z79.82 Long term (current) use of aspirin; Z79.899 Other long term (current) drug therapy
CPT/HCPCS: 99284; 96374; 96372; J1120; J2405; S0119

== ENCOUNTER → 2023-05-13 | Outpatient (CLI) | payer MEDICARE, OTHER ==
[2023-05-13 16:01] LABS: HCT 48.5 % (39.6-50.0); HGB 15.7 g/dL (13.0-17.0); MCH 30.4 pg (27.0-32.0); MCHC 32.4 g/dL (32.0-37.0); Mean Platelet Volume 9.4 FL (9.5-12.2); NRBC Per 100 WBC 0 X 10*3/uL (0.00-0.01); Platelet Count 353 X 10*3/uL (140-440); RBC 5.16 X 10*6/uL (4.40-5.60); WBC 6.55 X 10*3/uL (4.50-10.00)
[2023-05-13 16:03] LABS: ALT 20 U/L (10-49); AST 19 U/L (14-35); Albumin 4.3 g/dL (3.8-4.9); Albumin/Globulin Ratio 1.79 Ratio (1.60-3.17); Alkaline Phosphatase 59 U/L (41-126); BUN/Creat Ratio 19.21 Ratio (12.00-20.00); Blood Urea Nitrogen 36.5 mg/dL (9.0-27.0); Calcium 9.9 mg/dL (8.7-10.3); Carbon Dioxide 25.5 mmol/L (21.6-31.8); Chloride 103 mmol/L (96-109); Chol/HDL Ratio 3.85 Ratio; Globulin 2.4 g/dL (1.6-3.3); Glucose 141 mg/dL (70-110); LDL Cholesterol,Calculated 90.9 mg/dL (0.0-131.0); Potassium 5.2 mmol/L (3.5-5.5); Sodium 140 mmol/L (135-145); Total Bilirubin 0.3 mg/dL (0.3-1.2); Total Protein 6.7 g/dL (6.2-8.2)
[2023-05-13 18:03] LABS: Urine Creatinine 52.6 mg/dL (39.0-259.0)
== END | disposition home or self-care (01) ==
LOC: LABWHC1 08:07
PROVIDERS: ATTEND Internal Medicine Endocrinology, Diabetes & Metabolism
DX: Z01.812 Encounter for preprocedural laboratory examination (principal); I25.810 Atherosclerosis of coronary artery bypass graft(s) without angina pectoris; E11.65 Type 2 diabetes mellitus with hyperglycemia
CPT/HCPCS: 36415; 80053; 80061; 82043; 82570; 83036; 84153; 84443; 85027

== ENCOUNTER 2023-05-21 08:50 | Day surgery (SDC) | payer MEDICARE, OTHER ==
[2023-05-16 13:58] VITALS: BMI 37.7
[~2023-05-21 08:50] MED LIST changes: +ASPIRIN 325 MG TAB PO ONE; -ASPIRIN 325 MG TAB PO STA; -ATORVASTATIN 80 MG TAB PO STA; -SODIUM CHLORIDE 0.9% 1,000 ML in EMPTY BAG 1 BAG IV SCH
[2023-05-21] MEDS: SODIUM CHLORIDE 0.9% 1,000 ML in EMPTY BAG 1 BAG IV SCH ×4 (09:41→22:15)
[2023-05-21 09:48] LABS: Glucose,Whole Blood 149 mg/dL (70-110)
[2023-05-21] MEDS ORDERED: VERAPAMIL 2.5 MG/ML 2 ML AMP ONE (12:27)
[2023-05-21] MEDS ORDERED: LIDOCAINE 1% INJ 10MG/ML (20 ML MDV) ONE (12:27)
[2023-05-21] MEDS ORDERED: LIDOCAINE 1% INJ 10MG/ML (20 ML MDV) SQ ONE (12:38)
[2023-05-21] MEDS ORDERED: MIDAZOLAM 2 MG/2 ML VIAL IVP ONE ×2 (12:40→13:14)
[2023-05-21] MEDS ORDERED: CLOPIDOGREL 75 MG TAB ONE (12:43)
[2023-05-21] MEDS ORDERED: HEPARIN SODIUM 1,000 UN/ML (10ML VL) ONE (12:43)
[2023-05-21] MEDS: HEPARIN SODIUM 1,000 UN/ML (10ML VL) IV ONE ×3 (12:45→13:33)
[2023-05-21] MEDS ORDERED: CLOPIDOGREL 75 MG TAB PO ONE (12:46)
[2023-05-21] MEDS ORDERED: NITROGLYCERIN 1000MCG/10ML SYRINGE INTRACORON ONE (13:47)
[2023-05-21] MEDS ORDERED: IOPAMIDOL-370 100ML BTL INJ ONE (13:55)
[2023-05-21] MEDS ORDERED: RX INFO: IV CONTRAST WAS GIVEN 1 EACH MISC MISCELLANE PRN (14:20)
[2023-05-21] MEDS ORDERED: ATROPINE SULFATE 0.1 MG/ML 10ML SYRINGE IV PRN (14:20)
[2023-05-21] MEDS ORDERED: NITROGLYCERIN SL TABS 0.4 MG TAB SUBLINGUAL PRN (14:20)
[2023-05-21] MEDS ORDERED: ZOLPIDEM 5 MG TAB PO PRN (14:20)
[2023-05-21] MEDS ORDERED: MAG HYDROX/AL HYDROX/SIMETH 30 ML CUP PO PRN (14:20)
--- NOTE | 2023-05-21 14:27 | P.PCN ---
Date of Procedure: 05/21/23 Operative Findings: PERCUTANEOUS CORONARY INTERVENTION Performing physician Aristides Brennan M.D. Procedure Performed: 1. Successful stenting of the distal and mid and proximal LCx using 2.75 x 15 and 3.0 x 23 and 3.5 x 15 mm Xience drug-eluting stent with an excellent angiographic results. 2. Adjunctive use of intravascular ultrasound and lithotripsy balloon 3. Selective right common femoral artery angiogram and ultrasound guided access of the right common femoral artery Indication: Severe coronary artery disease involving and protected large left circumflex coronary artery in this symptomatic 73-year-old gentleman. Please refer to diagnostic heart catheterization was performed recently Approach: Right common femoral Complications: None Level of Sedation: Moderate with a sedation length of 75 minutes Procedure Discussion: After obtaining an informed consent the patient was brought to the cardiac canvas shop laborer. The right common femoral artery was cannulated using micropuncture technique under ultrasound guidance the micropuncture wire passed easily then I placed a 7-Iranian 23 cm sheath at the right common femoral artery. Subsequently anticoagulation was initiated using heparin with continuous ACT monitoring. I did engage the left main using EBU 3.75 guiding catheter. Attempting wiring the left circumflex using a run-through wire was unsuccessful but was successful using a whisper wire. After that I was able to advance the intravascular ultrasound catheter to the proximal left circumflex only which showed heavily calcified lesion was diameter round 3.5 mm. The artery was extremely calcified. Annual that advancing the lithotripsy balloon would be unsuccessful before predilatation so for that reason I predilated using 2.0 mm balloon and subsequently 2.5 mm balloon and then I was able to advance the lithotripsy balloon to the proximal and mid left circumflex were I did balloon angioplasty of the left circumflex. After that attempting advancing stent to the mid left circumflex was unsuccessful but was successful using guide liner. I placed 3.0 x 23 mm stent where the stent was positioned under fluoroscopy guidance and deployed under fluoroscopy guidance. The following angiogram showed the lesion distal to the stent appeared to be flow limiting which I decided to stent. I deployed 2.75 x 15 mm in the distal left circumflex and approximately 3.5 x 15 mm. Final angiogram showed good angiographic results and the procedure was completed was no complication Postprocedure Management: 1. Dual antiplatelet therapy for at least 6 small 2. Risk factors modification 3. Follow-up with the patient
[2023-05-21] MEDS ORDERED: SODIUM CHLORIDE 0.9% 1,000 ML in EMPTY BAG 1 BAG IV SCH (14:30)
[2023-05-21] MEDS: hydrALAZINE HCL 50 MG TAB PO SCH ×2 (16:30→21:01)
[2023-05-21] MEDS: POTASSIUM CITRATE 10 MEQ TABLET.ER PO SCH ×2 (16:30→21:01)
[2023-05-21] MEDS: ACETAMINOPHEN TAB 325 MG TAB PO PRN ×2 (16:33→21:01)
[2023-05-21 17:02] LABS: Glucose,Whole Blood 127 mg/dL (70-110)
[2023-05-21] MEDS: carvediloL 12.5 MG TAB PO SCH (17:59)
[2023-05-21 20:30] LABS: Glucose,Whole Blood 196 mg/dL (70-110)
[2023-05-21] MEDS ORDERED: FENOFIBRATE 160 MG TAB PO SCH (21:00)
[2023-05-21] MEDS ORDERED: ATORVASTATIN 80 MG TAB PO SCH (21:00)
[2023-05-22] MEDS: SODIUM CHLORIDE 0.9% 1,000 ML in EMPTY BAG 1 BAG IV SCH (05:11)
[2023-05-22 06:08] LABS: Glucose,Whole Blood 152 mg/dL (70-110)
[2023-05-22] MEDS: carvediloL 12.5 MG TAB PO SCH (06:29)
[2023-05-22 06:42] LABS: Basophils % (A) 1 %; Eosinophils # (A) 0.1 k/uL (0-0.7); Eosinophils % (A) 1 %; HCT 42.8 % (39.0-53.0); HGB 14.2 gm/dL (13.0-17.5); Lymphocytes # (A) 1.4 k/uL (1.0-4.8); Lymphocytes % (A) 21 %; MCH 31.3 pg (25.0-35.0); MCHC 33.1 g/dL (31.0-37.0); MCV 94.5 fL (80.0-100.0); Mean Platelet Volume 7.4; Monocytes # (A) 0.4 k/uL (0-1.0); Monocytes % (A) 6 %; Neutrophils # (A) 4.7 k/uL (1.3-7.7); Neutrophils % (A) 70 %; Platelet Count 255 k/uL (150-450); RBC 4.53 m/uL (4.30-5.90); RDW 13.1 % (11.5-15.5); WBC 6.7 k/uL (3.8-10.6)
[2023-05-22 07:04] LABS: African American GFR (CKD) 48 (>60 ml/min/1.73 sqM); Anion Gap 11 mmol/L; Blood Urea Nitrogen 26 mg/dL (9-20); Calcium 9.1 mg/dL (8.4-10.2); Carbon Dioxide 19 mmol/L (22-30); Chloride 106 mmol/L (98-107); Glucose 138 mg/dL (74-99); Non-African American GFR(CKD) 41 (>60 ml/min/1.73 sqM); Potassium 4.2 mmol/L (3.5-5.1); Sodium 136 mmol/L (137-145)
[2023-05-22 07:47] VITALS: BP 136/80; PULSE 83; RESP 16; TEMP 97.3
[2023-05-22] MEDS: POTASSIUM CITRATE 10 MEQ TABLET.ER PO SCH (08:57)
[2023-05-22] MEDS: hydrALAZINE HCL 50 MG TAB PO SCH (08:58)
[2023-05-22] MEDS ORDERED: FUROSEMIDE 20 MG TAB PO SCH (09:00)
[2023-05-22] MEDS ORDERED: SODIUM BICARBONATE TAB 650 MG TAB PO SCH (09:00)
[2023-05-22] MEDS ORDERED: DAPAGLIFLOZIN PROPANEDIOL 10 MG TABLET PO SCH (09:00)
[2023-05-22] MEDS ORDERED: GLIMEPIRIDE 4 MG TAB PO SCH (09:00)
[2023-05-22] MEDS ORDERED: CLOPIDOGREL 75 MG TAB PO SCH (09:00)
[2023-05-22] MEDS ORDERED: ASPIRIN 81 MG PO SCH ×2 (09:00→09:15)
[2023-05-22] MEDS ORDERED: amLODIPine 10 MG TAB PO SCH (09:00)
[2023-05-22] MEDS ORDERED: APIXABAN 2.5 MG TABLET PO SCH (10:00)
--- NOTE | 2023-05-22 10:58 | P.DS ---
Providers Attending physician: Aristides Brennan Consults: 05/21/23 14:20 Consult Physician Routine Consulting Provider: [facility] Consult Reason/Comments: Post Interventional patient Do you want consulting provider notified?: Already Contacted Primary care physician: Izzy Waggoner [place] Hospital Course: This is a 72-year-old male who underwent stenting of the distal, mid, and proximal circumflex with 3 drug-eluting stents. Patient examined this morning the bedside. Patient is doing well post procedure with no complications noted. No complaints of chest pain or shortness of breath. Vital signs are stable. The patient was deemed stable for discharge home today from a cardiac standpoint. Patient is being discharged on dual antiplatelet therapy with aspirin and Plavix. The patient's Eliquis is also been decreased to 2.5 mg twice a day per Dr. Brennan. Please see EMR for further hospital course details. Discharge diagnosis Coronary artery disease, status post stenting of distal, mid, and proximal circumflex with 3 drug-eluting stents Nurse practitioner note has been reviewed by physician. Signing provider agrees with the documented findings, assessment, and plan of care. Plan - Discharge Summary Discharge Rx Participant: No New Discharge Prescriptions: New Apixaban [Eliquis] 2.5 mg PO BID #60 tab Clopidogrel [Plavix] 75 mg PO DAILY #90 tab Continue amLODIPine [Norvasc] 10 mg PO DAILY Atorvastatin [Lipitor] 80 mg PO HS Fenofibrate [Lofibra] 160 mg PO HS carvediloL 25 mg PO BID hydrALAZINE HCL [Apresoline] 100 mg PO TID Glimepiride [Amaryl] 4 mg PO DAILY Dulaglutide [Trulicity] 3 mg SQ Q7DAYS Dapagliflozin Propanediol [Farxiga] 10 mg PO DAILY Sodium Bicarbonate Tab 650 mg PO DAILY Potassium Citrate [Potassium Citrate ER] 2 tab PO TID Furosemide [Lasix] 20 mg PO DAILY Aspirin 81 mg PO DAILY Discontinued Apixaban [Eliquis] 5 mg PO BID #0 Discharge Medication List Atorvastatin [Lipitor] 80 mg PO HS 04/07/15 [History] amLODIPine [Norvasc] 10 mg PO DAILY 04/07/15 [History] Fenofibrate [Lofibra] 160 mg PO HS 04/30/17 [History] carvediloL 25 mg PO BID 03/02/18 [History] Glimepiride [Amaryl] 4 mg PO DAILY 11/30/19 [History] hydrALAZINE HCL [Apresoline] 100 mg PO TID 11/30/19 [History] Dulaglutide [Trulicity] 3 mg SQ Q7DAYS 10/01/21 [History] Dapagliflozin Propanediol [Farxiga] 10 mg PO DAILY 04/18/23 [History] Potassium Citrate [Potassium Citrate ER] 2 tab PO TID 04/18/23 [History] Furosemide [Lasix] 20 mg PO DAILY 05/16/23 [History] Sodium Bicarbonate Tab 650 mg PO DAILY 05/16/23 [History] Aspirin 81 mg PO DAILY 05/21/23 [History] Apixaban [Eliquis] 2.5 mg PO BID #60 tab 05/22/23 [Rx] Clopidogrel [Plavix] 75 mg PO DAILY #90 tab 05/22/23 [Rx] Follow up Appointment(s)/Referral(s): Aristides Brennan MD [STAFF PHYSICIAN] - 05/27/23 10:45 am (APPOINTMENT MADE ON May @ 10:45AM) Patient Instructions/Handouts: *Surgery [facility] - After Heart Catheterization - [facility] Instructions Activity/Diet/Wound Care/Special Instructions: *NO LIFTING, PUSHING, OR PULLING ANYTHING OVER 5 POUNDS FOR 5 DAYS *NO DRIVING FOR 3 DAYS *YOU CAN REMOVE YOUR DRESSING TOMORROW BUT DO NOT SUBMERSE YOUR PUNCTURE SITE IN WATER FOR A FEW DAYS TO PREVENT INFECTION - SO NO TUB BATHS, POOLS, HOT TUBS, DISHES...ETC *ANY SIGNS OF BLEEDING (HARDNESS, SWELLING, OR EXCESSIVE BRUISING) HOLD DIRECT PRESSURE ON YOUR PUNCTURE SITE AND COME TO THE NEAREST EMERGENCY ROOM TO GET YOUR PUNCTURE SITE LOOKED AT - DO NOT DRIVE YOURSELF - EITHER CALL EMS OR HAVE SOMEONE DRIVE YOU! Discharge Disposition: HOME SELF-CARE
[2023-05-23] MEDS ORDERED: PATIENT'S OWN (Dulaglutide [Trulicity] 1.5 MG/0.5 ML Each) SQ SCH (09:00)
== END 2023-05-22 10:36 | disposition home or self-care (01) ==
LOC: CATHCVL 08:50 → 6NMEDSUR 13:52 → CATHCVL 05-22 10:36
PROVIDERS: ATTEND Internal Medicine Interventional Cardiology
DX: I25.10 Atherosclerotic heart disease of native coronary artery without angina pectoris (principal); E78.5 Hyperlipidemia, unspecified; I10 Essential (primary) hypertension; E11.9 Type 2 diabetes mellitus without complications; F17.290 Nicotine dependence, other tobacco product, uncomplicated; Z90.5 Acquired absence of kidney; I49.9 Cardiac arrhythmia, unspecified; Z79.84 Long term (current) use of oral hypoglycemic drugs; Z79.899 Other long term (current) drug therapy; Z79.01 Long term (current) use of anticoagulants; Z79.85 Long-term (current) use of injectable non-insulin antidiabetic drugs; Z88.8 Allergy status to other drugs, medicaments and biological substances; Z88.9 Allergy status to unspecified drugs, medicaments and biological substances; Z95.5 Presence of coronary angioplasty implant and graft
CPT/HCPCS: 92978; 0715T; 76937; 80048; 82565; 85025; C9600; C1769 ×5; C1760; C1887 ×2; C1725 ×3; C1894 ×2; C1753; C1874 ×3; C1761; J2250; J2001; J1644; Q9967; J2305

== ENCOUNTER → 2023-07-23 | Outpatient (CLI) | payer MEDICARE, OTHER ==
--- NOTE | 2023-07-23 11:46 | XR ---
EXAMINATION TYPE: XR chest 2V DATE OF EXAM: 07/23/2023 11:15 AM CLINICAL INDICATION:Male, 72 years old with history of CHEST 2 VIEW; [facility] COMPARISON: Chest radiographs from 11/11/2018 TECHNIQUE: XR chest 2V Frontal and lateral views of the chest. FINDINGS: Lungs/Pleura: There is no evidence of pleural effusion, focal consolidation, or pneumothorax. Pulmonary vascularity: Unremarkable. Heart/mediastinum: Cardiomediastinal silhouette is prominent in size. Atherosclerotic calcifications are seen in the aorta. Two lead cardiac conduction device overlying the left hemithorax with lead ti ps projecting over the right ventricle and right atrium. Musculoskeletal: No acute osseous pathology. Other findings: None IMPRESSION: No acute cardiopulmonary disease/process.
--- NOTE | 2023-07-23 13:10 | CT ---
EXAMINATION TYPE: CT abdomen pelvis wo con DATE OF EXAM: 07/23/2023 COMPARISON: 02/11/2020 HISTORY: Renal cancer. CT DLP: 1280 mGycm Examination of the solid and hollow viscera is limited given the lack of contrast. FINDINGS: LUNG BASES: No evidence for nodule. No evidence for infiltrate. Fixed hiatal hernia seen. LIVER/GB: The gallbladder is unremarkable. No space-occupying hepatic lesion. PANCREAS: No pancreatic mass identified. No inflammatory process seen. SPLEEN: No evidence for splenomegaly. No intrasplenic lesions seen. ADRENALS: No adrenal nodules identified. No evidence for thickening. KIDNEYS: Right sided nephrectomy changes redemonstrated without evidence recurrent or residual mass. No evidence for renal mass. No nephrolithiasis. No hydronephrosis. Urinary bladder is grossly unremar kable although not ideally distended. BOWEL: Appendix has a normal appearance. No evidence of bowel obstruction. No inflammatory process. Lymph nodes: No evidence for adenopathy greater than 1 cm. Abdominal aorta: Atheromatous changes seen. No evidence for aneurysm. Genital organs: Prostate gland enlargement. Other: No significant abnormality. IMPRESSION: 1. Postnephrectomy change on the right without evidence recurrent or residual mass or metastatic dise ase.
== END | disposition home or self-care (01) ==
LOC: RADCTMAIN 10:55
PROVIDERS: ATTEND Urology
DX: C64.1 Malignant neoplasm of right kidney, except renal pelvis (principal); Z90.5 Acquired absence of kidney
CPT/HCPCS: 71046; 74176

== ENCOUNTER → 2023-10-27 | Outpatient (CLI) | payer MEDICARE, OTHER ==
[2023-10-27 11:06] LABS: ALT 16 U/L (10-49); AST 20 U/L (14-35); Albumin 4.3 g/dL (3.8-4.9); Albumin/Globulin Ratio 1.79 Ratio (1.60-3.17); Alkaline Phosphatase 60 U/L (41-126); BUN/Creat Ratio 16.35 Ratio (12.00-20.00); Blood Urea Nitrogen 32.7 mg/dL (9.0-27.0); Calcium 10.3 mg/dL (8.7-10.3); Carbon Dioxide 24.3 mmol/L (21.6-31.8); Chloride 102 mmol/L (96-109); Chol/HDL Ratio 4.07 Ratio; Globulin 2.4 g/dL (1.6-3.3); Glucose 130 mg/dL (70-110); Potassium 4.9 mmol/L (3.5-5.5); Sodium 139 mmol/L (135-145); Total Bilirubin 0.4 mg/dL (0.3-1.2); Total Protein 6.7 g/dL (6.2-8.2)
[2023-10-27 21:07] LABS: Urine Creatinine 73.9 mg/dL (39.0-259.0)
== END | disposition home or self-care (01) ==
LOC: LABWHC1 07:51
PROVIDERS: ATTEND Internal Medicine Endocrinology, Diabetes & Metabolism
DX: E11.65 Type 2 diabetes mellitus with hyperglycemia (principal)
CPT/HCPCS: 36415; 80053; 80061; 82043; 82570; 83036; 84443

== ENCOUNTER → 2024-01-30 | Outpatient (CLI) | payer MEDICARE, OTHER | END | disposition home or self-care (01) | LOC: LABWHC1 11:28 | PROVIDERS: ATTEND Physician Assistant Medical | DX: E11.9 Type 2 diabetes mellitus without complications (principal); I48.91 Unspecified atrial fibrillation; Z79.899 Other long term (current) drug therapy | CPT/HCPCS: 36415; 80053; 80061; 82043; 82570; 83036; 84443; 85027 ==

== ENCOUNTER → 2024-04-26 | Outpatient (CLI) | payer MEDICARE, OTHER ==
[2024-04-26 15:44] LABS: ALT 19 U/L (10-49); AST 23 U/L (14-35); Albumin 4.3 g/dL (3.8-4.9); Albumin/Globulin Ratio 1.59 Ratio (1.60-3.17); Alkaline Phosphatase 63 U/L (41-126); Blood Urea Nitrogen 31.6 mg/dL (9.0-27.0); Calcium 9.6 mg/dL (8.7-10.3); Carbon Dioxide 23.4 mmol/L (21.6-31.8); Chloride 104 mmol/L (96-109); Globulin 2.7 g/dL (1.6-3.3); Glucose 110 mg/dL (70-110); Sodium 140 mmol/L (135-145); Total Bilirubin 0.4 mg/dL (0.3-1.2)
[2024-04-26 15:50] LABS: HCT 49.2 % (39.6-50.0); HGB 15.4 g/dL (13.0-17.0); MCH 29.4 pg (27.0-32.0); MCHC 31.3 g/dL (32.0-37.0); MCV 94.1 FL (80.0-97.0); Mean Platelet Volume 8.9 FL (9.5-12.2); NRBC Per 100 WBC 0 X 10*3/uL (0.00-0.01); Platelet Count 284 X 10*3/uL (140-440); RBC 5.23 X 10*6/uL (4.40-5.60); RDW 13.1 % (11.5-14.5); WBC 5.92 X 10*3/uL (4.50-10.00)
== END | disposition home or self-care (01) ==
LOC: LABWHC1 07:51
PROVIDERS: ATTEND Family Medicine
DX: E11.9 Type 2 diabetes mellitus without complications (principal); Z79.899 Other long term (current) drug therapy
CPT/HCPCS: 36415; 80053; 83036; 85027